=== PATIENT | female | born 1950 | race Caucasian/White ===

== ENCOUNTER 2016-08-01 15:42 | Observation (INO) | payer MEDICARE ==
[2016-08-01 17:28] LABS: Hematocrit 30 % (35-47); Hemoglobin 9.9 g/dl (12.0-16.0); Mean Corpuscular HGB Conc 33 g/dl (31-36); Mean Corpuscular Hemoglobin 35 pg (27-31); Mean Platelet Volume 8 um3 (7.4-10.4); Red Cell Distribution Width 15 % (10.5-15); White Blood Count 6.8 10^3/ul (3.5-10.8)
[2016-08-01 17:29] LABS: Comments Flag Yes; Mean Corpuscular Volume 106 fL (80-97)
--- NOTE | 2016-08-01 17:33 | RAD ---
Indication: Syncope. Single frontal view of the chest performed at 1717 hours was reviewed. Comparison is made with previous exam dated June 29, 2015. No mediastinal shift is noted. Heart is of normal size and configuration. Lung gomez appear clear. IMPRESSION: NO ACTIVE CARDIOPULMONARY DISEASE IS NOTED.
[2016-08-01 17:39] LABS: ALT 17 U/L (7-52); AST 22 U/L (13-39); Alkaline Phosphatase 73 U/L (34-104); Anion Gap 11 mmol/L (2-11); BUN/Creatinine Ratio 16.3 (8-20); Blood Urea Nitrogen 22 mg/dL (6-24); CO2 Carbon Dioxide 24 mmol/L (22-32); Calcium 8.8 mg/dL (8.6-10.3); Chloride 103 mmol/L (101-111); Creatine Kinase 45 U/L (10-223); EGFR African American 50.5 (>60); EGFR Non-African American 39.2 (>60); Glucose 129 mg/dL (70-100); Magnesium 1.1 mg/dL (1.9-2.7); Potassium 4.3 mmol/L (3.5-5.0); Sodium 138 mmol/L (133-145)
[2016-08-01 17:52] LABS: TSH (Thyroid Stimulating Horm) 2.22 mcIU/mL (0.34-5.60)
--- NOTE | 2016-08-01 20:12 | RAD ---
Indication: Seizures. CT of the brain was performed without IV contrast. Comparison is made with previous exam dated September 06, 2011. Ventricular structures are midline. No midline shift is noted. There is encephalomalacia in the right frontal lobe. This is unchanged from previous exam. No midline shift is noted. No intracranial hemorrhage is noted. Mastoid air cells and paranasal sinuses are otherwise unremarkable. IMPRESSION: Postoperative changes with encephalomalacia in the right frontal lobe unchanged from previous exam. No intracranial hemorrhage is noted.
[2016-08-01] MEDS ORDERED: Divalproex DR TAB(*) 500 MG PO ONE (20:21)
--- NOTE | 2016-08-01 22:47 | ED ---
Tom Garsia Anna, scribed for Rosanne Kaufman MD on 08/01/16 at 1742 . Syncope/Near Syncope - HPI Summary HPI Summary: Patient is a 65 y/o female coming to [facility] presenting after the sudden onset of a seizure that began at 1500 today. The patient does not remember what happened. According to her , the patient was at the computer. She stood up and began convulsing. Her went over to hold her and eased her to the floor. The convulsing lasted two minutes. She was "out of it" for ten minutes. She bit her tongue in two places. Denies ALBRIGHT, CP, SOB, palpitations, nausea, emesis. Her history is significant for meningioma (removed 6 years ago, returned and removed again two other times), HTN, stents, CAD, a fib. She denies a history of seizures or seizure medications. Patient medications were reviewed this visit. 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 - accompanied by Onset/Duration: Sudden Onset, Lasting Minutes, Resolved Timing: Minutes Context: Witnessed, Loss Of Consciousness Activity At Onset: Other - stood up Associated Head Trauma: No - Allergies/Home Medications Allergies/Adverse Reactions: Allergies Allergy/AdvReac Type Severity Reaction Status Date / Time Azithromycin [From Zithromax] Allergy Itching Verified 10/08/15 19:28 Oxycodone Allergy See Comment Verified 10/08/15 19:28 Home Medications: Home Medications Acetaminophen TAB* [Tylenol TAB*] 650 mg PO Q4H PRN 08/01/16 [History Confirmed 08/01/16] BuPROPion XL* [Bupropion XL*] 300 mg PO DAILY 08/01/16 [History Confirmed ] Cholecalciferol CAP/TAB(NF) [Vitamin D3 CAP/TAB (NF)] 1 cap PO QAM 08/01/16 [ History Confirmed 08/01/16] Cyanocobalamin TAB* [Vitamin B12 TAB*] 1,000 mcg PO QAM 08/01/16 [History Confirmed 08/01/16] Ezetimibe TAB* [Zetia TAB*] 10 mg PO DAILY 08/01/16 [History Confirmed 08/01/16] Lansoprazole CAP (NF) [Prevacid CAP (NF)] 30 mg PO DAILY 08/01/16 [History Confirmed 08/01/16] Loratadine [Claritin 10 MG CAP] 10 mg PO QAM 08/01/16 [History Confirmed ] Magnesium Chloride EC TAB* [Slow Mag EC TAB*] 71.5 mg PO QAM 08/01/16 [History Confirmed 08/01/16] Misc Natural Products [Sleep Tonite] 1 tab PO QPM 08/01/16 [History Confirmed ] Multivitamins/Minerals TAB* [Theragran/minerals TAB*] 1 tab PO QAM 08/01/16 [ History Confirmed 08/01/16] Probiotic Product [Probiotic Daily] 1 cap PO QAM 08/01/16 [History Confirmed ] Rosuvastatin (NF) [Crestor (NF)] 5 mg PO DAILY 08/01/16 [History Confirmed 08/01] PMH/Surg Hx/FS Hx/Imm Hx Endocrine/Hematology History: Reports: Hx Anemia Denies: Hx Diabetes Cardiovascular History: Reports: Hx Atrial Fibrillation - no symptoms since ablation in 2008, Hx Coronary Artery Disease - stent 2003, Hx Hypertension, Other Cardiovascular Problems/Disorders - Stent, Atrial fibrilation Denies: Hx Congestive Heart Failure, Hx Pacemaker/ICD Respiratory History: Reports: Hx Pneumonia, Hx Sleep Apnea Denies: Hx Asthma GI History: Reports: Hx Gastroesophageal Reflux Disease, Other GI Disorders - ibs History: Denies: Hx Acute Renal Failure, Hx Benign Prostatic Hyperplasia, Hx Dialysis , Hx Renal Disease Musculoskeletal History: Reports: Hx Arthritis, Hx Back Problems, Other Musculoskeletal History - 2 hip replacements Sensory History: Reports: Hx Contacts or Glasses - reading Denies: Hx Hearing Aid Opthamlomology History: Reports: Hx Contacts or Glasses - reading Neurological History: Reports: Hx Headaches, Other Neuro Impairments/Disorders - Hx of brain tumor Denies: Hx Dementia, Hx Developmental Delay, Hx Migraine, Hx Nerve Disease, Hx Seizures, Hx Spinal Cord Injury, Hx Transient Ischemic Attacks (TIA) Psychiatric History: Reports: Hx Anxiety, Hx Panic Disorder - Cancer History Cancer Type, Location and Year: CRANIOTOMY Hx Chemotherapy: No Hx Radiation Therapy: No - Surgical History Surgery Procedure, Year, and Place: 06/28 TOTAL RIGHT HIP REPLACEMENT; 06/27 TOTAL LEFT HIP REPLACEMENT; 08/28 GAMMA KNIFE PROCEDURE; 12/28 RT KNEE ARTHROSCOPIC; 09[place]23 [place] [facility] [place] ANKLE HARDWARE REMOVED; 04[place]26 [place] [facility] [place] [place] CARDIAC ST[place]; 1981; W.TOOTH EXTRACTION; 2009 CARDIAC ABLATION WITH STENT [place] Hx Anesthesia Reactions: No Infectious Disease History: Yes Infectious Disease History: Denies: Hx Hepatitis, Traveled Outside the [place] in Last 30 Days - Family History Known Family History: Positive: Cardiac Disease - Social History Lives: With Family Alcohol Use: Daily Alcohol Amount: 1/2 BOTTLE WINE/DAY Substance Use Type: Reports: None Hx Tobacco Use: Yes Smoking Status (MU): Current Every Day Smoker Type: Cigarettes Amount Used/How Often: 2 CIG/DAY Review of Systems Negative: Palpitations, Chest Pain Negative: Shortness Of Breath Negative: Vomiting, Nausea Negative: Edema Neurological: Other - dizziness Positive: Syncope. Negative: Headache All Other Systems Reviewed And Are Negative: Yes Physical Exam Triage Information Reviewed: Yes Vital Signs On Initial Exam: Initial Vitals Temp Pulse Resp BP Pulse Ox 97.8 F 78 17 150/78 100 08/01/16 16:12 08/01/16 16:12 08/01/16 16:12 08/01/16 16:12 08/01/16 16:12 Vital Signs Reviewed: Yes Appearance: Positive: Well-Appearing, No Pain Distress, Well-Nourished Skin: Positive: Warm, Skin Color Reflects Adequate Perfusion, Dry Head/Face: Positive: Normal Head/Face Inspection Eyes: Positive: EOMI, LAURA, Conjunctiva Clear ENT: Positive: Pharynx normal, TMs normal Neck: Positive: Supple, Nontender Respiratory/Lung Sounds: Positive: Clear to Auscultation, Breath Sounds Present. Negative: Rales, Rhonchi, Wheezes Cardiovascular: Positive: RRR, S1, S2. Negative: Murmur, Rub, Other - no gallops Abdomen Description: Positive: Nontender, Soft. Negative: Distended, Guarding, Other: - no rebound Bowel Sounds: Positive: Present Musculoskeletal: Positive: Other - Painful ROM of right hip due to chronic flexor tendonitis Neurological: Positive: Normal, Sensory/Motor Intact, Alert, Oriented to Person Place, Time. Negative: Cerebellar Dysfunction Psychiatric: Positive: Affect/Mood Appropriate Diagnostics - Vital Signs Vital Signs Temp Pulse Resp BP Pulse Ox 08/01/16 16:18 76 21 150/76 97 08/01/16 16:12 97.8 F 74 14 150/78 97 - Laboratory Lab Results: Lab Results 08/01/16 08/01/16 Range/Units 16:04 16:04 WBC 6.8 (3.5-10.8) 10^3/ul RBC 2.80 L (4.0-5.4) 10^6/ul Hgb 9.9 L (12.0-16.0) g/dl Hct 30 L (35-47) % MCV 106 H (80-97) fL MCH 35 H (27-31) pg MCHC 33 (31-36) g/dl RDW 15 (10.5-15) % Plt Count 267 (150-450) 10^3/ul MPV 8 (7.4-10.4) um3 Neut % (Auto) 70.1 (38-83) % Lymph % (Auto) 19.8 L (25-47) % [place] % (Auto) 8.3 (1-9) % Eos % (Auto) 1.2 (0-6) % Baso % (Auto) 0.6 (0-2) % Absolute Neuts (auto) 4.8 (1.5-7.7) 10^3/ul Absolute Lymphs (auto) 1.3 (1.0-4.8) 10^3/ul Absolute Monos (auto) 0.6 (0-0.8) 10^3/ul Absolute Eos (auto) 0.1 (0-0.6) 10^3/ul Absolute Basos (auto) 0 (0-0.2) 10^3/ul Absolute Nucleated RBC 0 10^3/ul Nucleated RBC % 0 INR (Anticoag Therapy) 0.90 (0.89-1.11) Result Diagrams: 08/01/16 16:04 08/01/16 16:04 Lab Statement: Any lab studies that have been ordered have been reviewed, and results considered in the medical decision making process. - Radiology CXR Xray Interpretation: No Acute Changes Radiology Interpretation Completed By: Radiologist - CT Brain CT CT Interpretation: No Acute Changes CT Interpretation Completed By: Radiologist - IMPRESSION: Postoperative changes with encephalomalacia in the right frontal lobe unchanged from previous exam. No intracranial hemorrhage is noted. - EKG 1629 Cardiac Rate: NL - 77 bpm EKG Rhythm: Sinus Rhythm EKG Interpretation: Biphasic P-wave in V3, noncontiguous. No acute ischemic changes. Re-Evaluation - Re-Evaluation First Eval Re-Evaluation Time: 21:01 Comment: Discussed results and plan of care with patient and family. Patient and family are agreeable with plan. Course/Dx Assessment/Plan: Patient is a 65 y/o female coming to [facility] presenting after the sudden onset of a seizure that began at 1500 today. Labs reveal RBC of 2.80 , Hgb of 9.9, Hct of 30, magnesium of 1.1, glucose of 129, BNP of 123. EKG reveals NSR at 77 bpm with biphasic P-wave in V3, noncontiguous. No acute ischemic changes. CXR reveals no evidence for acute disease. Brain CT reveals an unchanged brain from previous exam with no intracranial hemorrhage noted. Discussed case with Dr. Saldana (neurologist) at 2020, who will evaluate the patient tomorrow. Dr. Saldana recommends 500 mg Depakote BID. Discussed case with Dr. Borjas, hospitalist, who accepts patient for admission. - Diagnoses Provider Diagnoses: Seizure - Physician Notifications Discussed Care Of Patient With: Dr. Borjas (hospitalist) at 2008. Agrees to accept patient for admission. Dr. Saldana (neurologist) at 2020. He recommends Depakote 500 mg BID. He will evaluate the patient tomorrow. Discharge - Discharge Plan Condition: Stable Disposition: ADMITTED TO [facility] documentation as recorded by the Tom lieberman Anna accurately reflects the service I personally performed and the decisions made by , Rosanne Kaufman MD.
--- NOTE | 2016-08-02 01:16 | HP ---
H&P (Free Text) History and Physical: PCP: Tripp Burnham MD Date/Time of Evaluation: 08/02/2016 0055 CC: syncope HPI: Mrs Farr is a 65YO female HX meningioma s/p excision x2 after recurrence who does not recall the exact events leading to her ED visit, but was told by her that she was on the computer when she started laughing and stood up. She then began to 'flail' her arms to which her approached her in time to catch her when she collapsed and guide her to the ground after which he called EMS. She bit the L side of her tongue causing bleeding, but did not lose control of bowel or bladder. She does recall awakening on the floor and getting up despite her 's protests. She denies prodromal symptoms. Her informed her he wasn't sure of the duration, but that it was "a few minutes". At this time, she denies complaints or history of similar. She did have an episode of thunderclap vertigo within the last few days which only lasted a few seconds. Work up is notable for stable vitals, chronic stable macrocytic anemia, a normal d-dimer, & worsening CKD currently stg 3b. ECG, CXR, & CT brain WO are benign. PMedHx meningioma s/p excision followed by gamma knife for recurrence AFIB CAD/stent HTN chronic macrocytic anemia depression tobacco use disorder alcohol abuse hemorrhoids w/ frequent BRBPR, C-scope reportly up to date IBS OA Ambulatory Orders Aspirin Low Dose CHEW TAB* [Aspirin Low Dose TAB*] 81 mg PO DAILY 10/08/15 Calcium 1,200 mg PO DAILY 10/08/15 Calcium Carbonate-Vitamin D [Calcium 600/Vitamin D 600-200 mg-Unit] 2 tab PO DAILY 10/08/15 Candesartan Cilexetil [Atacand] 4 mg PO DAILY 10/08/15 Docusate Sodium [Stool Softener] 250 mg PO BID 10/08/15 Metoprolol Tartrate TAB* [Lopressor TAB*] 100 mg PO BID 10/08/15 Potassium 99 mg PO DAILY 10/08/15 Vitamin B Complex TAB* [Complex B-100*] 1 tab PO QAM 10/08/15 Acetaminophen TAB* [Tylenol TAB*] 650 mg PO Q4H PRN 08/01/16 BuPROPion XL* [Bupropion XL*] 300 mg PO DAILY 08/01/16 Cholecalciferol CAP/TAB(NF) [Vitamin D3 CAP/TAB (NF)] 1 cap PO QAM 08/01/16 Cyanocobalamin TAB* [Vitamin B12 TAB*] 1,000 mcg PO QAM 08/01/16 Ezetimibe TAB* [Zetia TAB*] 10 mg PO DAILY 08/01/16 Lansoprazole CAP (NF) [Prevacid CAP (NF)] 30 mg PO DAILY 08/01/16 Loratadine [Claritin 10 MG CAP] 10 mg PO QAM 08/01/16 Magnesium Chloride EC TAB* [Slow Mag EC TAB*] 71.5 mg PO QAM 08/01/16 Misc Natural Products [Sleep Tonite] 1 tab PO QPM 08/01/16 Multivitamins/Minerals TAB* [Theragran/minerals TAB*] 1 tab PO QAM 08/01/16 Probiotic Product [Probiotic Daily] 1 cap PO QAM 08/01/16 Rosuvastatin (NF) [Crestor (NF)] 5 mg PO DAILY 08/01/16 Allergies Azithromycin [From Zithromax] Allergy (Verified 10/08/15 19:28) Itching Oxycodone Allergy (Verified 10/08/15 19:28) See Comment PSurgHx craniotomy for meningioma cerebral gamma knife for meningioma recurrence B TKA ORIF L ankle s/p hardware removal hemorrhoidectomy SocHx: current smoker w/ ~50PYHX, 2-3 glasses wine daily, denies recreational drugs; lives with her ; DNR code status FamHx: Mother: passed in her 80s, HX "blood clot" & TIAs; Father: passed in his 90s 2nd leukemia w/ metastatic colon CA ROS: as above, otherwise reviewed and all were negative Constitutional: NAD, normally developed, overweight white female vitals: Vital Signs Temp 36.6 C 08/01/16 16:12 Pulse 94 08/02/16 00:01 Resp 15 08/02/16 00:01 BP 118/61 08/02/16 00:01 Pulse Ox 97 08/02/16 00:01 Intake & Output 08/01/16 08/01/16 08/02/16 11:59 23:59 11:59 Weight 63.503 kg HEENM: atraumatic; sclera/conjunctiva: non-icteric/clear; hearing: clinically intact; oropharynx: L lateral tongue small crush/laceration w/o active bleeding , mucosa moist Neck: soft tissue: non-tender; thyroid: normal Pulmonary: clear to auscultation bilaterally, good aeration, no accessory muscle use CV: RR/RR, normal S1S2, no carotid bruit, no jugular venous distention, 2+ B DP/ PT, no edema Abdominal: soft, non-distended, non-tender, no rebound/guarding/rigidity, normoactive bowel sounds, no hepatosplenomegaly or masses, no costovertebral angle tenderness Musculoskeletal: general: grossly intact; gait: stable Integumental: normal appearance and texture Psychiatric orientation: AA&O to PPS affect: calm mood: cooperative eye contact: good content: reliable memory: absent regarding event responses: timely insight: fair Testing: Lab Results 08/01/16 08/01/16 08/01/16 Range/Units 16:04 16:04 16:04 WBC 6.8 (3.5-10.8) 10^3/ul RBC 2.80 L (4.0-5.4) 10^6/ul Hgb 9.9 L (12.0-16.0) g/dl Hct 30 L (35-47) % MCV 106 H (80-97) fL MCH 35 H (27-31) pg MCHC 33 (31-36) g/dl RDW 15 (10.5-15) % Plt Count 267 (150-450) 10^3/ul MPV 8 (7.4-10.4) um3 Neut % (Auto) 70.1 (38-83) % Lymph % (Auto) 19.8 L (25-47) % Major % (Auto) 8.3 (1-9) % Eos % (Auto) 1.2 (0-6) % Baso % (Auto) 0.6 (0-2) % Absolute Neuts (auto) 4.8 (1.5-7.7) 10^3/ul Absolute Lymphs (auto) 1.3 (1.0-4.8) 10^3/ul Absolute Monos (auto) 0.6 (0-0.8) 10^3/ul Absolute Eos (auto) 0.1 (0-0.6) 10^3/ul Absolute Basos (auto) 0 (0-0.2) 10^3/ul Absolute Nucleated RBC 0 10^3/ul Nucleated RBC % 0 INR (Anticoag Therapy) 0.90 (0.89-1.11) D-Dimer, Quantitative < 200 (Less Than 230) ng/mL Sodium 138 (133-145) mmol/L Potassium 4.3 (3.5-5.0) mmol/L Chloride 103 (101-111) mmol/L Carbon Dioxide 24 (22-32) mmol/L Anion Gap 11 (2-11) mmol/L BUN 22 (6-24) mg/dL Creatinine 1.35 H (0.51-0.95) mg/dL Est GFR ( Amer) 50.5 (>60) Est GFR (Non-Af Amer) 39.2 (>60) BUN/Creatinine Ratio 16.3 (8-20) Glucose 129 H (70-100) mg/dL Calcium 8.8 (8.6-10.3) mg/dL Magnesium 1.1 L (1.9-2.7) mg/dL Total Bilirubin 0.30 (0.2-1.0) mg/dL AST 22 (13-39) U/L ALT 17 (7-52) U/L Alkaline Phosphatase 73 (34-104) U/L Total Creatine Kinase 45 (10-223) U/L Troponin I 0.00 (<0.04) ng/mL B-Natriuretic Peptide ( - 100) pg/mL Total Protein 7.0 (6.4-8.9) g/dL Albumin 4.0 (3.2-5.2) g/dL Globulin 3.0 (2-4) g/dL Albumin/Globulin Ratio 1.3 (1-3) TSH 2.22 (0.34-5.60) mcIU/mL 08/01/16 Range/Units 17:53 WBC (3.5-10.8) 10^3/ul RBC (4.0-5.4) 10^6/ul Hgb (12.0-16.0) g/dl Hct (35-47) % MCV (80-97) fL MCH (27-31) pg MCHC (31-36) g/dl RDW (10.5-15) % Plt Count (150-450) 10^3/ul MPV (7.4-10.4) um3 Neut % (Auto) (38-83) % Lymph % (Auto) (25-47) % Major % (Auto) (1-9) % Eos % (Auto) (0-6) % Baso % (Auto) (0-2) % Absolute Neuts (auto) (1.5-7.7) 10^3/ul Absolute Lymphs (auto) (1.0-4.8) 10^3/ul Absolute Monos (auto) (0-0.8) 10^3/ul Absolute Eos (auto) (0-0.6) 10^3/ul Absolute Basos (auto) (0-0.2) 10^3/ul Absolute Nucleated RBC 10^3/ul Nucleated RBC % INR (Anticoag Therapy) (0.89-1.11) D-Dimer, Quantitative (Less Than 230) ng/mL Sodium (133-145) mmol/L Potassium (3.5-5.0) mmol/L Chloride (101-111) mmol/L Carbon Dioxide (22-32) mmol/L Anion Gap (2-11) mmol/L BUN (6-24) mg/dL Creatinine (0.51-0.95) mg/dL Est GFR ( Amer) (>60) Est GFR (Non-Af Amer) (>60) BUN/Creatinine Ratio (8-20) Glucose (70-100) mg/dL Calcium (8.6-10.3) mg/dL Magnesium (1.9-2.7) mg/dL Total Bilirubin (0.2-1.0) mg/dL AST (13-39) U/L ALT (7-52) U/L Alkaline Phosphatase (34-104) U/L Total Creatine Kinase (10-223) U/L Troponin I (<0.04) ng/mL B-Natriuretic Peptide 123 H ( - 100) pg/mL Total Protein (6.4-8.9) g/dL Albumin (3.2-5.2) g/dL Globulin (2-4) g/dL Albumin/Globulin Ratio (1-3) TSH (0.34-5.60) mcIU/mL ECG, personally reviewed: NSR rate 73, non-specific ST-T change in V3/4 CXR, personally reviewed: IMPRESSION: NO ACTIVE CARDIOPULMONARY DISEASE IS NOTED. CT brain WO, personally reviewed: IMPRESSION: Postoperative changes with encephalomalacia in the right frontal lobe unchanged from previous exam. No intracranial hemorrhage is noted. Impression: 65F HX meningioma s/p craniotomy & then gamma knife surgery for recurrence presenting with new onset seizures DIAGNOSIS & PLAN Primary new onset seizures : Betty Saldana MD neurology consulted by ED, will evaluate in AM : divalproex 500mg PO BID : seizure precautions : EEG in AM : supplemental oxygen : supportive care Secondary meningioma : s/p excision followed by gamma knife for recurrence AFIB : continue metoprolol CAD/stent : continue aspirin HTN : continue candesartan, metoprolol HLD : continue rosuvastatin & ezetimibe depression : continue bupropion XL GERD : omeprazole Admission Rational: observation for new onset seizure work up DVTp: SCDs Code Status: DNR HCP:
[2016-08-02] MEDS ORDERED: Melatonin (NF) 3 MG TAB PO PRN (01:54)
[2016-08-02] MEDS ORDERED: Acetaminophen TAB* 325 MG PO PRN (01:54)
[2016-08-02] MEDS ORDERED: Ondansetron INJ* 2 MG/ML VIAL IV PRN (01:54)
[2016-08-02] MEDS ORDERED: Albuterol 2.5 MG/3 ML NEB.SOL* (0.083%) INH PRN (01:54)
[2016-08-02 02:05] LABS: Immature Retic Fraction 0.48
[2016-08-02 02:07] LABS: Corrected Retic Count 0.9 % (0.5-1.5); Maturation Factor Retic 1.5
[2016-08-02 02:19] LABS: Iron 94 ug/dL (50-212); Total Iron Binding Capacity 323 mcg/dL (250-450); Transferrin 231 mg/dL (203-362)
[2016-08-02 02:39] LABS: Prolactin 26.2 ng/mL (1.0-25.0)
[2016-08-02 02:41] LABS: Ferritin 76.9 ng/mL (11-307)
[2016-08-02 02:44] LABS: Folate > 20.00 ng/mL (>3.99)
[2016-08-02 02:45] LABS: Vitamin B12 > 1450 pg/mL (180-914)
[2016-08-02] MEDS ORDERED: Omeprazole CAP* 20 MG PO SCH (06:00)
[2016-08-02 06:07] LABS: Hematocrit 26 % (35-47); Hemoglobin 8.7 g/dl (12.0-16.0); Mean Corpuscular HGB Conc 34 g/dl (31-36); Mean Corpuscular Hemoglobin 35 pg (27-31); Mean Platelet Volume 7 um3 (7.4-10.4); Red Blood Count 2.45 10^6/ul (4.0-5.4); Red Cell Distribution Width 14 % (10.5-15); White Blood Count 6.1 10^3/ul (3.5-10.8)
[2016-08-02 06:08] LABS: Comments Flag Yes; Mean Corpuscular Volume 105 fL (80-97)
[2016-08-02 06:20] LABS: BUN/Creatinine Ratio 14.8 (8-20); Calcium 8.3 mg/dL (8.6-10.3); EGFR African American 53.7 (>60); EGFR Non-African American 41.7 (>60); Potassium 3.6 mmol/L (3.5-5.0)
[2016-08-02 08:36] VITALS: BP 117/57
[2016-08-02] MEDS ORDERED: Tiotropium CAP.INH* CAP.INH/18 MCG INH SCH (09:00)
[2016-08-02] MEDS ORDERED: Divalproex DR TAB(*) 500 MG PO SCH (09:00)
[2016-08-02] MEDS ORDERED: Spiriva Inhaler DEVICE* 1 EACH DEVICE INH ONE (09:00)
[2016-08-02] MEDS ORDERED: Mometasone/Formoter 200/5 MDI INH SCH (09:00)
[2016-08-02] MEDS ORDERED: ALPRAZolam TAB* 0.5 MG PO ONE (11:29)
[2016-08-02] MEDS ORDERED: ALPRAZolam TAB* 0.5 MG ONE (11:30)
--- NOTE | 2016-08-02 13:11 | RAD ---
Indication: Seizure yesterday afternoon. History of meningioma with resection in 2007 and gamma knife in August 2011. Comparison: August 01, 2016 CT and July 13, 2015 MRI. June 04, 2014 MRI. Technique: Neuro Heroa 1.5 Nichol [id number] with GEM suite. MRI brain without contrast. Report: Diffusion series is negative for acute or subacute ischemia. Susceptibility series is negative for stigmata of hemosiderin deposition to indicate previous hemorrhage. There is volume loss and white matter T2 hyperintensity at the RIGHT frontal lobe without change consistent with encephalomalacia related to previous surgery with overlying craniotomy site. 0.9 x 1.5 x 1.0 cm sharply demarcated T2 hyperintense cavity within the overlying RIGHT frontal bone is unchanged and likely represents sequela of a previous bassam hole. Minimal increased signal is noted in the periventricular white matter of the cerebral hemispheres without change. Negative for sulcal effacement. Unremarkable ventricles and basal cisterns. No new extra or intra-axial lesions evident. Unchanged mild increased T2 signal within the superior lateral aspect of the RIGHT orbit without associated mass effect is low suspicion possibly representing sequela of previous surgery or radiation. Preserved major intracranial flow-voids. No suspicious calvarial or skull base lesion evident. Grossly clear paranasal sinuses and mastoid air spaces. Negative for suspicious scalp lesions. IMPRESSION: 1. Stable finding of RIGHT anterior lobe encephalomalacia related to previous surgery at the RIGHT anterior cranial fossa compared with the July 13, 2015 and June 04, 2014 MRI exams.. No finding suspicious for local recurrence or new extra or intra-axial tumor within limits of noncontrast MRI. 2. No evidence for acute or subacute ischemia.
--- NOTE | 2016-08-02 14:45 | DCNOTE ---
Subjective Date of Service: 08/02/16 Interval History: She feels completely well now. She recalls feeling funny for a few seconds before her fall. She does not recall falling to the floor;. She recalls waking up on the floor and feeling a little off for a short period. SHe has never had a seizure before. Objective Active Medications: Acetaminophen (Tylenol Tab*) 650 mg PO Q6H PRN PRN Reason: FEVER/PAIN Last Admin: 08/02/16 04:05 Dose: 650 mg Albuterol (Ventolin 2.5 Mg/3 Ml Neb.Muna*) 2.5 mg INH Q2H PRN PRN Reason: SOB/WHEEZING Divalproex Sodium (Depakote Dr Tab(*)) 500 mg PO BID [facility] Last Admin: 08/02/16 08:43 Dose: 500 mg Mometasone Furoate/Formoterol Fumar (Dulera 200/5 Mdi*) 2 puff INH BID [facility] Last Admin: 08/02/16 08:17 Dose: Not Given Omeprazole (Prilosec Cap*) 20 mg PO DAILY@0600 [facility] Last Admin: 08/02/16 07:14 Dose: 20 mg Ondansetron HCl (Zofran Inj*) 4 mg IV Q6H PRN PRN Reason: NAUSEA Tiotropium [place] (Spiriva Cap.Inh*) 1 cap INH DAILY [facility] Last Admin: 08/02/16 08:18 Dose: Not Given Vital Signs 08/02/16 08/02/16 08/02/16 02:09 07:49 11:31 Temperature 98.1 F 97.9 F Pulse Rate 86 83 Respiratory 16 18 16 Rate Blood Pressure 145/69 117/57 (mmHg) O2 Sat by Pulse 100 99 Oximetry Oxygen Devices in Use Now: None Appearance: Alert, supine in bed. In good spirits. Looks comfortable. Eyes: No Scleral Icterus Ears/Nose/Mouth/Throat: Clear Oropharnyx, Mucous Membranes Moist Neck: NL Appearance and Movements; NL JVP, No Thyroid Enlargement, Masses Respiratory: Symmetrical Chest Expansion and Respiratory Effort, Clear to Auscultation, Clear to Percussion Cardiovascular: NL Sounds; No Murmurs; No JVD, RRR, No Edema, - Extremities: No Edema, No Clubbing, Cyanosis, - Skin: No Rash or Ulcers, No Nodules or Sclerosis, - Neurological: Alert and Oriented x 3, NL Sensation - Face symmetric. Speech clear, fluent, appropriate. Result Diagrams: 08/02/16 05:45 08/02/16 05:45 Additional Lab and Data: Lab Results 08/01/16 08/01/16 Range/Units 16:04 16:04 WBC 6.8 (3.5-10.8) 10^3/ul RBC 2.80 L (4.0-5.4) 10^6/ul Hgb 9.9 L (12.0-16.0) g/dl Hct 30 L (35-47) % MCV 106 H (80-97) fL MCH 35 H (27-31) pg MCHC 33 (31-36) g/dl RDW 15 (10.5-15) % Plt Count 267 (150-450) 10^3/ul MPV 8 (7.4-10.4) um3 Neut % (Auto) 70.1 (38-83) % Lymph % (Auto) 19.8 L (25-47) % Mcclain % (Auto) 8.3 (1-9) % Eos % (Auto) 1.2 (0-6) % Baso % (Auto) 0.6 (0-2) % Absolute Neuts (auto) 4.8 (1.5-7.7) 10^3/ul Absolute Lymphs (auto) 1.3 (1.0-4.8) 10^3/ul Absolute Monos (auto) 0.6 (0-0.8) 10^3/ul Absolute Eos (auto) 0.1 (0-0.6) 10^3/ul Absolute Basos (auto) 0 (0-0.2) 10^3/ul Absolute Nucleated RBC 0 10^3/ul Nucleated RBC % 0 INR (Anticoag Therapy) 0.90 (0.89-1.11) Assess/Plan/Problems-Billing Assessment: - Patient Problems (1) Seizure Current Visit: Yes Status: Acute Code(s): R56.9 - UNSPECIFIED CONVULSIONS SNOMED Code(s): 41022403 Comment: Related to prior menigiom. EEG report pending. Dr. Saldana to see pt before discharge. Rx for divalproex transmitted. Pt understands she can't drive for a period of time to be determined by her neurologist. (2) PAF (paroxysmal atrial fibrillation) Current Visit: Yes Status: Acute Code(s): I48.0 - PAROXYSMAL ATRIAL FIBRILLATION SNOMED Code(s): 466332102 Comment: In NSR on admission. (3) HTN (hypertension) Current Visit: Yes Status: Acute Code(s): I10 - ESSENTIAL (PRIMARY) HYPERTENSION SNOMED Code(s): 98938612 Comment: Hold candesartan until she sees her PCP. (4) Hypomagnesemia Current Visit: Yes Status: Acute Code(s): E83.42 - HYPOMAGNESEMIA SNOMED Code(s): 283549339 Comment: The patient was prescribed a magnesium supplement by Dr. Burnham but she decided not to take it due to her IBS. Mag 2 gm IV ordered, then 800 mg daily mag oxide at home. Status and Disposition: Discharge now. Fup Dr. Burnham.
[2016-08-02] MEDS ORDERED: Magnesium Sulfate 2 GM IV* 2 GM/50 ML BAG IVPB ONE (15:27)
--- NOTE | 2016-08-02 15:53 | PN ---
Progress Note - Progress Note Note: I discussed the effect of low magnesium levels on the chance of future seizures , also the same for buproprion. She is concerned about the effects of magnesium on her IBS, and also feels she needs medication to continue to not smoke. She will discuss these issues with Dr. Burnham.
--- NOTE | 2016-08-02 20:14 | CONS ---
NEUROLOGY CONSULTATION: DATE OF CONSULT: 08/02/16 LOCATION: She is an inpatient in room 405. REFERRING PHYSICIAN: Dr. Borjas. PRIMARY CARE PHYSICIAN: Dr. Burnham. CHIEF COMPLAINT: Seizure. HISTORY OF PRESENT ILLNESS: Janell Farr is a 65-year-old right-handed woman, who was at her computer yesterday, she believed, when she suddenly felt a strange sensation in her head like a balloon was filling up. She bent over and held her head and passed perhaps 5 or 10 seconds. She continued working at the computer. Sometime later that day, her observed her as start laughing, stand up, and had some type of flailing movements of her arms. She collapsed to the ground and apparently there was some stiffening. She was brought into the emergency room. She was amnestic for the event and did not respond initially to her and did not really respond much until she was in the emergency room. Her estimated the whole episode lasted a few minutes. The patient does not remember any other premonitory symptoms, does not remember coming into the emergency room. She does remember of being in the hospital room last night. There is no prior history of seizures. She was diagnosed with having a meningioma in the right frontal region [place] [address] Bridger Paulino. She had a surgical resection. She was followed with serial imaging for years and had evidence of recurrence and underwent Gamma Knife therapy in [place], I believe somewhere around 2012 or so. She has been followed there with serial scans since and to the best of my knowledge, there has been no evidence of recurrent disease. She had an MRI of her brain today, which revealed postsurgical changes but no changes since the prior MRI scan done here on 07/13/15. There is no evidence of infarction or hemorrhage. PAST MEDICAL HISTORY: Notable for the meningioma and subsequent treatment; ongoing tobacco dependance, with the smoking cessation with Wellbutrin for at least many months. Coronary artery disease with stenting, history of chronic macrocytic anemia, history of irritable bowel syndrome, possible history of alcohol abuse, history of intermittent atrial fibrillation, history of chronic kidney disease. FAMILY HISTORY: Negative for seizures. SOCIAL HISTORY: She lives with her . She has cut her smoking down from a pack per day to a pack per week. She has 2 to 3 glasses of wine per day according to the computer records. REVIEW OF SYSTEMS: Notable for biting inside of her tongue. She has a low- grade headache today. She had been eating fine lately. She has been having some right hip pain, recently diagnosed with flexor problem by her daughter who is, I believe, a material handling technician. She is otherwise generally study on her feet. No falls. She does not recollect any weakness of one side or another after a surgery or subsequently. She has had a prior ankle fracture. PHYSICAL EXAM: She is well-nourished and well-hydrated. Head is atraumatic. Temperature 97.9 orally, blood pressure 117/57, heart rate in the 80s and regular, respirations about 16. Heart is in a regular rate and rhythm without murmurs. Lungs are clear bilaterally. Carotid pulses are present and I do not hear any bruits. She has a small bite on the tip of her tongue in the left lateral aspect of it. No other oral trauma. Neck is supple. Neurologically, pupils react equally from 3.5 down to 2 mm. Funduscopic exam is normal. Eye movements are normal. Visual gomez are full to confrontation. Facial musculature is symmetric. Facial sensation to light touch is symmetric. Palate and tongue otherwise appear normal and speech is clear without dysarthria. Hearing is intact bilaterally and neck strength is intact. Motor exam reveals normal muscle tone and strength in the limbs, proximally and distally, although I did not test the right proximal one because of pain. There is no rest or action tremor. Finger taps are normal in the hands. Sensory exam to touch and pin is normal in the limbs. Reflexes are hypoactive, absent at the ankles. Plantar responses are flexor bilaterally. She is alert and oriented to person, place, and time. She does not recall about an hour or two or perhaps three around the episode yesterday. Memory otherwise is normal. Attention, concentration, and fund of knowledge are all adequate. Language is fluent. DIAGNOSTIC STUDIES/LAB DATA: I reviewed her images from today and agree with the report. She had an EEG, which I have reviewed and is essentially a normal EEG. Other laboratory studies include CBC with hemoglobin of 9.9 on admission with hematocrit of 30, MCV 106. Platelet count 267,000. Chemistry profile is normal other than the creatinine of 1.35 yesterday, down to 1.28 today. Magnesium is low at 1.1, glucose 129. IMPRESSION AND PLAN: Impression is that of a new-onset seizure probably from her old meningioma and subsequent therapy for it. She has been started on Depakote last night, which I agree with. Discussed potential side effects of that with her including sedation, weight gain, tremor. I told her will need to be monitored. I told her she cannot drive and needs to notify the DMV of the seizure disorder and typically would not be able to drive for 6 months from her last seizure. She will need to follow up in my office as well to monitor her blood levels and other parameters. She should take supplemental magnesium as well and I will discuss with Dr. Laws. [id number]/[facility] #: [id number] YULIYA
--- NOTE | 2016-08-03 00:33 | EEG ---
ELECTROENCEPHALOGRAM REPORT: DATE OF STUDY: 08/02/16 REFERRING PHYSICIAN: Dr. Borjas. LOCATION: She is an inpatient, room 405. CLINICAL HISTORY: New onset seizure the day before this recording. The patient has a history of meningioma with resection and recurrence treated with gamma knife therapy. MEDICATIONS: Consist of: 1. Depakote. 2. Prilosec. 3. Dulera. 4. Ventolin. 5. Zofran. EEG DESCRIPTION: This 16-channel EEG is remarkable for background activity consisting of a posterior rhythm of approximately 9 cycles per second which is symmetric. Lower voltage faster rhythms are seen bifrontally. There is a voltage asymmetry with higher rhythms noted from the left occipital and temporal parietal areas. Frequencies are symmetrical; however. The patient drowses and sleeps intermittently with higher voltage central delta activity and some bitemporal theta rhythms. Sleep spindles are seen periodically. The patient sleeps and wakes several times during the recording. Activation procedures are not attempted. There are no epileptiform discharges. INTERPRETATION: Abnormal EEG due to voltage asymmetries with higher voltages from the left hemisphere suggestive of the breach rhythm. There are no epileptiform discharges during the recording, however. [id number]/[facility] #: [id number] [facility]
--- NOTE | 2016-08-03 08:32 | DS ---
CC: Dr. Burnham. DISCHARGE SUMMARY: DATE OF ADMISSION: 08/02/16 DATE OF DISCHARGE: 08/02/16 HISTORY OF PRESENT ILLNESS: This 65-year-old woman was at her computer, her was there, she does not recall the events. He said she started laughing, stood up, flailed her arms, and he caught her in time to guide her to the ground and then called EMS. The patient does not recall falling. She said she recalls a few seconds of feeling funny and then passed out. She woke up on the floor. She was a little bit off for a short period of time. She had bit her tongue, but was not incontine nt. She has never had a seizure before. The rest of the history is detailed in the note. The patient was admitted to the medical floor. She had no further episodes. She was started on div alproex 500 mg b.i.d. She had no further episodes in the hospital. Her magnesium level was noted to be 1.1. This is the same value she had in May. Dr. Burnham had pr escribed magnesium, but the patient would not take it because she was afraid it would affect her ir ritable bowel syndrome. We also recommended that she stop her bupropion; however, she felt she need ed it, so she would not smoke; she said she would discuss this issue with Dr. Burnham. I recommended her that she not take it. She understands that it would not be safe for her to drive until she has been cleared by a neurologi st. FINAL DIAGNOSES: 1. Seizure. 2. Paroxysmal atrial fibrillation. 3. Hypertension. 4. Hypomagnesemia. DISCHARGE MEDICATIONS: 1. Divalproex 500 mg b.i.d. 2. Magnesium oxide 800 mg daily. 3. Docusate 250 mg b.i.d. 4. Vitamin D one tab daily. 5. Calcium carbonate and vitamin D two daily. 6. Calcium 1200 mg daily. 7. Aspirin 81 mg daily. 8. Candesartan 4 mg daily. 9. Metoprolol 100 mg b.i.d. 10. Potassium 99 mg daily. 11. B12 1000 mcg p.o. daily. 12. Sleep Tonight 1 tab at bedtime. 13. Multivitamin with minerals daily. 14. Rosuvastatin 5 mg daily. 15. Magnesium chloride 71.5 mg daily. 16. Lansoprazole 30 mg daily. 17. Ezetimibe 10 mg daily. 18. Bupropion XL 300 mg daily. This is listed as, in my opinion, the patient will take it regardle ss of my instructions. 19. Probiotic 1 capsule daily. 20. Loratadine 10 mg daily. 21. Acetaminophen 650 mg every 4 hours p.r.n. [id number]/[facility] #: [id number]
[2016-08-03] MEDS ORDERED: Magnesium Oxide TAB* 400 MG PO SCH (09:00)
== END 2016-08-02 17:40 | disposition home or self-care (01) ==
LOC: ED 15:42 → MED 08-02 02:07
PROVIDERS: ADMIT Hospitalist; ATTEND Internal Medicine
DX: R56.9 Unspecified convulsions (principal); R55 Syncope and collapse; I48.0 Paroxysmal atrial fibrillation; E83.42 Hypomagnesemia; I12.9 Hypertensive chronic kidney disease with stage 1 through stage 4 chronic kidney disease, or unspecified chronic kidney disease; N18.3 Chronic kidney disease, stage 3 (moderate); I25.10 Atherosclerotic heart disease of native coronary artery without angina pectoris; Z95.5 Presence of coronary angioplasty implant and graft; Z86.011 Personal history of benign neoplasm of the brain; D53.9 Nutritional anemia, unspecified; F32.9 Major depressive disorder, single episode, unspecified; K58.9 Irritable bowel syndrome, unspecified; G93.89 Other specified disorders of brain; E78.5 Hyperlipidemia, unspecified; F17.210 Nicotine dependence, cigarettes, uncomplicated; Z88.1 Allergy status to other antibiotic agents; Z88.5 Allergy status to narcotic agent; Z79.899 Other long term (current) drug therapy
CPT/HCPCS: 36415; 70450; 70551; 71010; 80048; 80053; 82550; 82607; 82728; 82746; 83540; 83550; 83615; 83735; 83880; 84146; 84443; 84484; 85025; 85027; 85045; 85379; 85610; 93005; 95819; 96374; 99284; 99406; A9270-GY; G0378

== ENCOUNTER 2016-12-20 15:33 | Emergency (ER) | payer MEDICARE ==
[2016-12-20 16:01] VITALS: BP 135/51
--- NOTE | 2016-12-20 16:07 | UC ---
Upper Extremity HPI - HPI Summary HPI Summary: 65 YEAR OLD FEMALE PRESENTS WITH RIGHT ELBOW PAIN AFTER A FALL. - History of Current Complaint Chief Complaint: UCUpperExtremity Stated Complaint: ARM INJURY Time Seen by Provider: 12/20/16 16:06 Hx Obtained From: Patient Onset/Duration: Sudden Onset Severity Initially: Moderate Severity Currently: Moderate Pain Scale Used: 0-10 Numeric - 7 - Allergies/Home Medications Allergies/Adverse Reactions: Allergies Allergy/AdvReac Type Severity Reaction Status Date / Time Azithromycin [From Zithromax] Allergy Itching Verified 12/20/16 16:01 Oxycodone Allergy See Comment Verified 12/20/16 16:01 PMH/Surg Hx/FS Hx/Imm Hx Previously Healthy: Yes - Surgical History Surgical History: Yes Surgery Procedure, Year, and Place: 06/28 TOTAL RIGHT HIP REPLACEMENT; 06/27 TOTAL LEFT HIP REPLACEMENT; 08/28 GAMMA KNIFE PROCEDURE; 12/28 RT KNEE ARTHROSCOPIC; 09/23 LT ANKLE SURGERY, [facility] [place] ; 2009 LT ANKLE HARDWARE REMOVED; 04/26 CRANIOTOMY [facility] [place]; 01/23 & HEMORRHOIDECTOMY,[facility] [place]; CARDIAC STENT; ; 1981 W.TOOTH EXTRACTION; 2009 CARDIAC ABLATION WITH STENT [place] - Family History Known Family History: Positive: Cardiac Disease - Social History Alcohol Use: Daily Alcohol Amount: 1/2 BOTTLE WINE/DAY Substance Use Type: None Smoking Status (MU): Current Every Day Smoker Type: Cigarettes Amount Used/How Often: 1 pk per day Household Exposure Type: Cigarettes - Immunization History Most Recent Influenza Vaccination: 2014 Most Recent Tetanus Shot: within past 5 years Most Recent Pneumonia Vaccination: 2014 Review of Systems Constitutional: Negative Skin: Negative Eyes: Negative ENT: Negative Respiratory: Negative Cardiovascular: Negative Gastrointestinal: Negative Genitourinary: Negative Motor: Negative Neurovascular: Negative Musculoskeletal: Other: - RIGHT ELBOW PAIN Neurological: Negative Psychological: Negative All Other Systems Reviewed And Are Negative: Yes Physical Exam Triage Information Reviewed: Yes Appearance: Pain Distress Vital Signs: Initial Vital Signs Temp 37.7 C 12/20/16 15:56 Pulse 66 12/20/16 15:56 Resp 20 12/20/16 15:56 BP 135/51 12/20/16 15:56 Pulse Ox 98 12/20/16 15:56 Eye Exam: Normal ENT Exam: Normal Dental Exam: Normal Neck exam: Normal Neck: Positive: 1 Respiratory Exam: Normal Cardiovascular Exam: Normal Abdominal Exam: Normal Musculoskeletal: Positive: Other: - RIGHT ELBOW PAIN Neurological Exam: Normal Psychological Exam: Normal Skin Exam: Normal Upper Extremity Course/Dx - Differential Dx/Diagnosis Provider Diagnoses: RIGHT RADIAL HEAD FX Discharge - Discharge Plan Condition: Stable Disposition: HOME Prescriptions: Ibuprofen TAB* [Motrin TAB* 800 MG] 800 mg PO Q6H #30 tab Patient Education Materials: Arm Fracture in Adults (ED), Elbow Fracture (ED) Referrals: Noemi Burnham MD [Primary Care Provider] - Paul Hendricks MD [Medical Doctor] -
--- NOTE | 2016-12-20 16:39 | RAD ---
INDICATION: Right elbow pain after a fall 2 days earlier COMPARISON: None. TECHNIQUE: 4 views right elbow. REPORT: On the lateral view radiograph there is both anterior and posterior elbow joint infusion causing elevation of the triceps tendon and elevation of the anterior fat pad. Depicted best on the AP and oblique views, there is faint lucent line just distal to the right radial head. There is no gross dislocated fracture. The remaining visualized bones are intact and appropriately aligned. IMPRESSION: Suspected nondisplaced impacted fracture of the right radial head with pathologic right elbow effusion. If the patient's symptoms persist further follow-up imaging is recommended.
== END 2016-12-20 17:01 | disposition home or self-care (01) ==
LOC: UCEAST 15:33
DX: S52.121A Displaced fracture of head of right radius, initial encounter for closed fracture (principal); F17.210 Nicotine dependence, cigarettes, uncomplicated; W19.XXXA Unspecified fall, initial encounter; Y92.9 Unspecified place or not applicable
CPT/HCPCS: 99213; G0463

== ENCOUNTER 2019-03-09 23:16 | Inpatient (IN) | payer MEDICARE ==
--- OUTSIDE RECORDS SUMMARY | 2019-03-09 23:32 | XMS REPORT | Continuity of Care Document ---
:1950 External Reference #:[id number] Author Name Shahida Bowman MD (transmitted by agent of provider Aretha Spann) Address [address] [place] [address] Care Team Providers Name Role Phone Todd Grier MD - Care Team Information Program Supervisor [phone] Otolaryngology Binh Tovar MD - Nephrology Care Team Information Program Supervisor [facility] - Clinic/Center Care Team Information Program Supervisor [phone] Agnes Wyatt MD - Adult Care Team Information Program Supervisor [phone] Reconstructive Orthopaedic Surgery Shahida Bowman MD - Nephrology Care Team Information Program Supervisor Problems Active Problems Provider Date Coronary arteriosclerosis Noemi Burnham M.D. Onset: 01/25/2010 Chronic obstructive lung disease Noemi Burnham M.D. Onset: 01/25/2010 Coronary arteriosclerosis Edilberto Young M.D., [facility], Onset: 12/23/2012 FASOK Benign essential hypertension Edilberto Young M.D., [facility], Onset: 03/24/2014 FASNC Essential hypertension Noemi Burnham M.D. Onset: 06/17/2015 Closed fracture of proximal end of Lena Bazan MD Onset: 12/22/2016 radius Conduction disorder of the heart Edilberto Young M.D., [facility], Onset: 2017 FASDWAIN Prosthetic arthroplasty of the hip Agnes Wyatt M.D. Onset: 11/26/2017 Periprosthetic osteolysis Agnes Wyatt M.D. Onset: 11/26/2017 Arthralgia of the pelvic region and Agnes Edmundo, M.D. Onset: 02/22/2018 thigh Social History Type Date Description Comments Sex Unknown Tobacco Use Start: Unknown current cigarette 1-2 cigarettes a day smoker Cigarette Use Pack Years - 30 + ETOH Use Drinks 3 Alcoholic She and split Beverages Per Day a bottle of wine daily, "occasionally more" Tobacco Use Start: Unknown Patient is a current smoke 1 pack per week smoker, smokes every day Recreational Drug Use Denies Drug Use Tobacco Use Start: Unknown States smokes 2 cigs per day Smoking Status Reviewed: 02/06/19 States smokes 2 cigs per day Exercise Type/Frequency Exercises rarely Allergies, Adverse Reactions, Alerts Active Allergies Reaction Severity Comments Date Azithromycin Urticaria Severe 01/20/2010 Oxycodone 04/26/2012 Medications Active Medications SIG Qnty Indications Ordering Provider Date Rollator with 4 x 8" 1units M25.551 [facility], 06/25/2018 [facility] wheels, seat, Karly basket, cane khan. For daily use T84.050D Z96.641 Candesartan Cilexetil take 1 tablet by 90tabs [facility], 2017 mouth once daily M.DAnalia 4mg Tablets Cane use for ambulation 1units M25.551 Agnes Wyatt M.D. 11/26/2017 [facility] - severe r hip pain Rosuvastatin Calcium take 1 tablet by 90tabs Noemi Burnham, 08/10/2017 mouth once daily M.DAnalia 5mg Tablets Xarelto take 1 tablet by 30tabs Noemi Burnham, 06/22/2017 20mg Tablets mouth once daily M.DAnalia Tylenol PM 2 tablets at [facility], 06/01/2011 Tablets bedtime ( taken as M.D. needed) Lansoprazole Take 1 Capsule By 30caps Noemi Burnham, 01/25/2010 30mg Mouth Once Daily M.DAnalia Capsules Aspirin 1 tablet once daily Noemimara Burnham, 08/02/[address] Brandt Metoprolol Tartrate take 1 tablet by 60tabs Noemi Burnham, 08/02/2009 mouth twice a day M.DAnalia 100mg Tablets Multi For Her 50+ 1 cap po daily Unknown Capsules Probiotic Acidophilus 1 cap po twice Unknown daily Am/PM Capsules Vitamin D3 High 1 by mouth in PM Unknown Potency 2000Unit Capsules Vitamin B Complex 1 by mouth every Unknown day Tablets Slow-Mag 2 by mouth three 60tabs Noemi Burnham, 71.5-119mg times a day M.D. Tablets Divalproex Sodium 1 tab by mouth 180tabs Alvaro Saldana, 500mg twice a day M.D. Tablets DR Jarvis take 1 tablet by 30tabs Noemi Burnham, 10mg Tablets mouth once daily M.D. Medications Administered in Office Medication SIG Qnty Indications Ordering Provider Date Records Fee Noemi Burnham M.D. 11/01/2018 Injection Inj, Regadenoson, 0.1 MG Edilberto Young M.D., 05/28/2017 Injection DELFINA TORO Technetium TC 99M Edilberto Young M.D., 05/28/2017 Tetrofosmin, Per Unit Dose DELFINA TORO Up To 40 Millicuries Injection B-12 Injection Daxa Pizarro M.D. 09/20/2006 Injection B-12 Injection Daxa Pizarro M.D. 09/12/2006 Injection B-12 Injection Daxa Pizarro M.D. 09/05/2006 Injection B-12 Injection Daxa Pizarro M.D. 08/29/2006 Injection B-12 Injection Daxa Pizarro M.D. 08/29/2006 Injection Immunizations CPT Code Status Date Vaccine Reaction Lot # [id number] Given 01/30/2019 Influenza Virus Vaccine, No immediate reaction [id number] Quadrivalent ([id number]), Derived From Cell 90337 Given 01/11/2018 Influenza Virus Vaccine, [id number] Quadrivalent, Split, Preservative Free 64813 Given 06/19/2016 Pneumonia Vaccine no immediate reaction [id number] noted ... hh Q2038 Given 01/11/2016 Fluzone Vaccine 32885 Given 06/17/2015 Pneumococcal Conjugate [id number] Vaccine 13 Valent For Intramuscular Use Q2039 Given 12/31/2014 Flu Vaccine NOS Q2035 Given 01/07/2014 Afluria Vaccine 14054 Given 05/01/2013 Tdap - [id number] Tetanus/Diptheria/Acellular Pertussis Q2035 Given 01/14/2013 Afluria Vaccine 98246 Given 05/07/2012 Zoster (Zostavax) Q2038 Given 12/21/2011 Fluzone Vaccine [id number] 73830 Given 12/22/2010 Influenza Virus 3Yrs & Over [id number] 11795 Given 01/21/2009 Influenza Virus Vaccine, Pandemic Formulation 22362 Given 01/21/2009 Administration Swine Flu Shot 97474 Given 12/31/2008 Influenza Virus 3Yrs & Over 06395 Given 01/21/2008 Influenza Virus 3Yrs & Over 67897 Given 01/18/2007 Influenza Virus 3Yrs & Over 16745 Given 01/16/2006 Influenza Virus 3Yrs & Over 34378 Given 01/16/2006 Influenza Virus 3Yrs & Over Vital Signs Date Vital Result Comment 02/06/2019 2:51pm Height 64 inches 5'4" Weight 131.00 lb Heart Rate 87 /min BP Systolic Sitting 106 mmHg left arm reg cuff BP Diastolic Sitting 66 mmHg left arm reg cuff O2 % BldC Oximetry 100 % room air BMI (Body Mass Index) 22.5 kg/m2 01/15/2019 2:03pm Height 64 inches 5'4" Weight 131.00 lb Heart Rate 69 /min BP Systolic 122 mmHg BP Diastolic 68 mmHg Body Temperature 97.1 F Pain Level 5 BMI (Body Mass Index) 22.5 kg/m2 Results Test Acquired Date Facility Test Result H/L Range Note Lipid Profile 12/27/2018 [facility] Triglycerides 96 mg/dL 1 (Trig/Chol/HDL) [address] [place] [address] [phone] Cholesterol 141 mg/dL 2 HDL Cholesterol 66.6 mg/dL 3 LDL Cholesterol 55 mg/dL 4 Comp Metabolic Panel 12/27/2018 [facility] Sodium 134 mmol/L Low 135-145 [address] [place] [address] [phone] Chloride 102 mmol/L Normal 101-111 Co2 Carbon Dioxide 27 mmol/L Normal 22-32 Calcium 8.8 mg/dL Normal 8.6-10.3 Albumin 3.3 g/dL Normal 3.2-5.2 Total Bilirubin 0.60 mg/dL Normal 0.2-1.0 Potassium 5.3 mmol/L High 3.5-5.0 Anion Gap 5 mmol/L Normal 2-11 Glucose 83 mg/dL Normal 70-100 Blood Urea Nitrogen 7 mg/dL Normal 6-24 Creatinine 0.93 mg/dL Normal 0.51-0.95 BUN/Creatinine Ratio 7.5 Low 8-20 Total Protein 5.6 g/dL Low 6.4-8.9 Globulin 2.3 g/dL Normal 2-4 Albumin/Globulin Ratio 1.4 Normal 1-3 Alkaline Phosphatase 82 U/L Normal 34-104 Alt 13 U/L Normal 7-52 Ast 22 U/L Normal 13-39 Egfr Non- 59.8 >60 Egfr 72.3 >60 5 Laboratory test 12/27/2018 [facility] Magnesium 1.0 mg/dL Low 1.9-2.7 [address] [place] [address] [phone] CBC Auto Diff 12/27/2018 [facility] White Blood 5.0 Normal 3.5 -10.[address] Count 10^3/uL [place], [place] [id number] [phone] Red Blood Count 2.80 10^6/uL Low 3.70-4.87 Hemoglobin 10.9 g/dL Low 12.0-16.0 Hematocrit 31 % Low 35-47 Mean Corpuscular Volume 112 fL High 80-97 7 Mean Corpuscular Hemoglobin 39 pg High 27-31 Mean Corpuscular HGB Conc 35 g/dL Normal 31-36 Red Cell Distribution Width 13 % Normal 10-15 Platelet Count 168 10^3/uL Normal 150-450 Mean Platelet Volume 8.6 fL Normal 7.4-10.4 Abs Neutrophils 2.5 10^3/uL Normal 1.5-7.7 Abs Lymphocytes 1.8 10^3/uL Normal 1.0-4.8 Abs Monocytes 0.6 10^3/uL Normal 0-0.8 Abs Eosinophils 0.1 10^3/uL Normal 0-0.6 Abs Basophils 0.0 10^3/uL Normal 0-0.2 Abs Nucleated RBC 0.0 10^3/uL Granulocyte % 50.1 % Lymphocyte % 35.4 % Monocyte % 12.4 % Eosinophil % 1.6 % Basophil % 0.5 % Nucleated Red Blood Cells % 0.1 Laboratory 12/27/2018 [facility] TSH (Thyroid 2.86 Normal 0.34 -5.60 8 test finding [address] Stim Horm) mcIU/[place] [address] [phone] 1 Desirable: <150 Borderline High: 150-199 High: 200-499 Very High: >500 2 Desirable: <200 Borderline High: 200-239 High: >239 3 Low: <40 Desirable: 40-60 High: >60 4 Desirable: <100 Near Optimal: 100-129 Borderline High: 130-159 High: 160-189 Very High: >189 5 Because ethnic data is not always readily available, this report includes an eGFR for both -Americans and non- Americans. The National Kidney Disease Education Program (NKDEP) does not endorse the use of the MDRD equation for patients that are not between the ages of 18 and 70, are , have extremes of body size, muscle mass, or nutritional status, or are non- or non-. According to the National Kidney Foundation, irrespective of diagnosis, the stage of the disease is based on the level of kidney function: Stage Description GFR(mL/min/1.73 m(2)) 1 Kidney damage with normal or decreased GFR 90 2 Kidney damage with mild decrease in GFR 60-89 3 Moderate decrease in GFR 30-59 4 Severe decrease in GFR 15-29 5 Kidney failure <15 (or dialysis) 6 FASTING 10 HOUR Copy Result to: EDILBERTO YOUNG MD [facility] ([id number]) 7 Consistent with Previous Results Reported on 05/29/2018 8 FASTING 10 HOUR Copy Result to: EDILBERTO YOUNG MD [facility] ([id number]) Procedures Date Code Description Status 11/19/2018 [id number] Mammogram Completed 10/11/2017 [id number] Mammogram Completed 08/16/2017 [id number] Diabetic Retinal Eye Exam Completed 05/03/2017 [id number] Colonoscopy Completed 09/22/2016 [id number] Bone Mineral Density Test Completed 09/22/2016 [id number] Mammogram Completed 07/15/2015 [id number] Mammogram Completed 06/11/2014 [id number] Mammogram Completed 05/20/2013 [id number] Mammogram Completed 05/09/2012 [id number] Mammogram Completed 02/21/2012 [id number] Colonoscopy Completed 04/03/2011 [id number] Bone Mineral Density Test Completed 04/03/2011 [id number] Mammogram Completed 03/01/2010 [id number] Mammogram Completed 02/24/2008 [id number] Bone Mineral Density Test Completed 02/27/2007 [id number] Colonoscopy Completed Medical Devices Description No Information Available Encounters Type Date Location Provider Dx Diagnosis Office Visit 01/15/2019 [facility] Agnes Wyatt M25.551 Pain in right hip 1:45p at [facility] Z96.641 Presence of right artificial hip joint T84.050A Periprosth osteolysis of internal prosthetic r hip jt, init Office Visit 01/07/2019 1:45p [facility] Edilberto Sage I25.10 [facility] Evelin Young M.D., disease of FACC, FASNC [place] coronary artery w/o ang pctrs I10 Essential (primary) hypertension E83.42 Hypomagnesemia I48.0 Paroxysmal atrial fibrillation Office Visit 12/26/2018 2:20p [facility] Noemi Burnham M25.551 [facility] E83.42 Hypomagnesemia E78.5 Hyperlipidemia, unspecified Z79.01 FDC (current) use of anticoagulants Office Visit 12/18/2018 2:45p [facility] Alvaro S. G40.209 Local- [facility] Of Evelin Saldana M.D. symptc epi w cmplx prt seiz,not ntrct,w/o stat epi D32.0 Benign neoplasm of cerebral meninges Z86.011 Personal history of benign neoplasm of the brain Office Visit 08/23/2018 2:20p [facility] Noemi Burnham M25.551 Pain in right Medicine - [facility] M.D. hip Z12.2 Encntr screen for malignant neoplasm of respiratory organs E83.42 Hypomagnesemia Assessments Date Code Description Provider 02/06/2019 E83.42 Hypomagnesemia Shahida Bowmna MD 01/30/2019 Z23 Encounter for immunization Nurse Visit A 01/15/2019 M25.551 Pain in right hip Agnes Wyatt M.D. 01/15/2019 Z96.641 Presence of right artificial hip Agnes Wyatt M.D. joint 01/15/2019 T84.050A Periprosthetic osteolysis of Agnes Wyatt M.D. internal prosthetic right hip joint, initial encounter 01/07/2019 I25.10 Atherosclerotic heart disease of Edilberto Young M.D., [facility], [place] coronary artery without [facility] angina pectoris 01/07/2019 I10 Essential (primary) hypertension Edilberto Young M.D., [facility] , [facility] 01/07/2019 E83.42 Hypomagnesemia Edilberto Young M.D., [facility], [facility] 01/07/2019 I48.0 Paroxysmal atrial fibrillation Edilberto Young M.D., [facility] , [facility] 12/26/2018 M25.551 Pain in right hip Noemi Burnham M.D. 12/26/2018 E83.42 Hypomagnesemia Noemi Burnham M.D. 12/26/2018 E78.5 Hyperlipidemia, unspecified Noemi Burnham M.D. 12/26/2018 Z79.01 FDC (current) use of Noemi Burhnam M.D. 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 12/18/2018 Z86.011 Personal history of benign neoplasm Alvaro Saldana M.D. of the brain 08/23/2018 M25.551 Pain in right hip Noemi Burnham M.D. 08/23/2018 Z12.2 Encounter for screening for Noemi Burnham M.D. malignant neoplasm of respirator 08/23/2018 E83.42 Hypomagnesemia Noemi Burnham M.D. Plan of Treatment Future Appointment(s):03/04/2019 2:30 pm - Shahida Bowman MD at [facility] Wyenlgdhkq06 /14/2020 3:00 pm - Noemi Burnham M.D. at [facility] Internal Medicine - [facility]12/22 2:45 pm - Alvaro Saldana M.D. at [facility] - Shahida Bowman MDE83.42 HypomagnesemiaNew Labs:Urine Magnesium 24H, Ordered: 02/06/19Creatinine 24HR Urine, Ordered: 02/06/19Magnesium, Ordered: Renal Function Panel, Ordered: 02/06/19Follow up:1 month with labs Functional Status Description No Information Available Mental Status Description No Information Available Referrals Refer to Dr Reason for Referral Status Appt Date Shahida Bowman MD Sent 02/06/[address] [place] [address] [phone] Agnes Wyatt MD Sent 01/13/2019 [address] [facility] [place] [address] [place] [address] [phone]
--- OUTSIDE RECORDS SUMMARY | 2019-03-09 23:32 | XMS REPORT | Continuity of Care Document ---
:1950 External Reference #:[id number] Author Name Shahida Bowman MD (transmitted by agent of provider Aretha Spann) Address [address] [place] [address] Care Team Providers Name Role Phone Todd Grier MD - Care Team Information Field Technical Support Consultant [phone] Otolaryngology Binh Tovar MD - Nephrology Care Team Information Field Technical Support Consultant W[facility] - Clinic/Center Care Team Information Field Technical Support Consultant [phone] Agnes Wyatt MD - Adult Care Team Information Field Technical Support Consultant [phone] Reconstructive Orthopaedic Surgery Shahida Bowman MD - Nephrology Care Team Information Field Technical Support Consultant Problems Active Problems Provider Date Coronary arteriosclerosis Noemi Burnham M.D. Onset: 01/25/2010 Chronic obstructive lung disease Noemi Burnham M.D. Onset: 01/25/2010 Coronary arteriosclerosis Edilberto Young M.D., [facility], Onset: 12/23/2012 FASOR Benign essential hypertension Edilberto Young M.D., [facility], Onset: 03/24/2014 FASNC Essential hypertension Noemi Burnham M.D. Onset: 06/17/2015 Closed fracture of proximal end of Lena Bazan MD Onset: 12/22/2016 radius Conduction disorder of the heart Edilberto Young M.D., [facility], Onset: 2017 FASDWAIN Prosthetic arthroplasty of [...] 2 cigs per day Smoking Status Reviewed: 03/04/19 States smokes 2 cigs per day Exercise Type/Frequency Exercises rarely Allergies, Adverse Reactions, Alerts Active Allergies Reaction Severity Comments Date Azithromycin Urticaria Severe 01/20/2010 Oxycodone 04/26/2012 Azithromycin 02/18/2019 Oxycodone 02/18/2019 Medications Active Medications SIG Qnty Indications Ordering Provider Date Amiloride HCL take 2 tabs by 60tabs Shahida Bowman MD 02/20/2019 5mg mouth daily in Tablets the am Rollator with 4 x 8" 1units M25.551 Noemi Burnham, 06/25/2018 [facility] [place] [place] wheels, seat, Karly basket, cane khan. For daily use T84.050D Z96.641 Candesartan Cilexetil Take 1 Tablet By 90tabs Anibal Jenkins, 2017 Mouth Every Day M.D. 4mg Tablets Cane use for ambulation 1units M25.551 Agnes Wyatt M.D. 11/26/2017 [facility] [place] [place] - severe r hip pain Rosuvastatin Calcium take 1 tablet by 90tabs Noemi Burnham, 08/10/2017 mouth once daily M.D. 5mg Tablets Xarelto take 1 tablet by 30tabs Anibal Jenkins, 06/22/2017 20mg Tablets mouth once daily M.D. Tylenol PM 2 tablets at Noemimara Burnham, 06/01/2011 Tablets bedtime ( taken as M.D. needed) Lansoprazole Take 1 Capsule By 30caps Noemi Burnham, 01/25/2010 30mg Mouth Once Daily M.D. Capsules DR Metoprolol Tartrate Take 1 Tablet By 180tabs Noemi Burnham, 08/02/2009 Mouth Twice Daily M.D. 100mg Tablets Aspirin 1 tablet once daily Noemi Burnham, 08/02/[address] Brandt Multi For Her 50+ 1 cap po [...] Code Status Date Vaccine Reaction Lot # [id number] Given 01/30/2019 Influenza Virus Vaccine, No immediate reaction [id number] Quadrivalent ([id number]), Derived From Cell 64869 Given 01/11/2018 Influenza Virus Vaccine, [id number] Quadrivalent, Split, Preservative Free 62352 Given 06/19/2016 Pneumonia Vaccine no immediate reaction [id number] noted ... Q2038 Given 01/11/2016 Fluzone Vaccine 11983 Given 06/17/2015 Pneumococcal Conjugate [id number] Vaccine 13 Valent For Intramuscular Use Q2039 Given 12/31/2014 Flu Vaccine NOS Q2035 Given 01/07/2014 Afluria Vaccine 82798 Given 05/01/2013 Tdap - [id number] Tetanus/Diptheria/Acellular Pertussis Q2035 Given 01/14/2013 Afluria Vaccine 32081 Given 05/07/2012 Zoster (Zostavax) Q2038 Given 12/21/2011 Fluzone Vaccine [id number] 59541 Given 12/22/2010 Influenza Virus 3Yrs & Over [id number] 54530 Given 01/21/2009 Influenza Virus Vaccine, Pandemic Formulation 14416 Given 01/21/2009 Administration Swine Flu Shot 95780 Given 12/31/2008 Influenza Virus 3Yrs & Over 87951 Given 01/21/2008 Influenza Virus 3Yrs & Over 78977 Given 01/18/2007 Influenza Virus 3Yrs & Over 47245 Given 01/16/2006 Influenza Virus 3Yrs & Over 84858 Given 01/16/2006 Influenza Virus 3Yrs & Over Vital Signs Date Vital Result Comment 03/04/2019 2:31pm Height 64 inches 5'4" Weight 131.00 lb Heart Rate 86 /min BP Systolic Sitting 101 mmHg left arm reg cuff BP Diastolic Sitting 64 mmHg left arm reg cuff O2 % BldC Oximetry 99 % room air BMI (Body Mass Index) 22.5 kg/m2 02/06/2019 2:51pm Height 64 inches 5'4" Weight 131.00 lb Heart Rate 87 /min BP Systolic Sitting 106 mmHg left arm reg cuff BP Diastolic Sitting 66 mmHg left arm reg cuff O2 % BldC Oximetry 100 % room air BMI (Body Mass Index) 22.5 kg/m2 Results Test Acquired Date Facility Test Result H/L Range Note Basic Metabolic 02/25/2019 [facility] Sodium 132 mmol/L Low 135-[address] [place] [address] [phone] Potassium 5.2 mmol/L High 3.5-5.0 Chloride 98 mmol/L Low 101-111 Co2 Carbon Dioxide 28 mmol/L Normal 22-32 Anion Gap 6 mmol/L Normal 2-11 Glucose 86 mg/dL Normal 70-100 Blood Urea Nitrogen 8 mg/dL Normal 6-24 Creatinine 0.99 mg/dL High 0.51-0.95 BUN/Creatinine Ratio 8.1 Normal 8-20 Calcium 8.4 mg/dL Low 8.6-10.3 Egfr Non- 55.6 >60 Egfr 67.3 >60 1 Laboratory 02/25/2019 [facility] Magnesium 1.1 Low 1.9-2.7 test finding [address] mg/[place] [address] [phone] Urine 02/11/2019 [facility] Urine 28 Abnormal 51 - 269 2, 3 Magnesium 24H [address] Magnesium mg/24h [place] [address] 24HR [phone] Urine Collection Duration 24 h Urine Volume 550 mL Urine Magnesium mg/dL 5 mg/dL 4 Creatinine 24HR 02/11/2019 [facility] Urine Collection 24 hr Urine [address] [place] [address] [phone] Urine Total Volume 550 mL Urine Creatinine Concentration 88.42 mg/dL Urine Creatinine/24 Hour 486.31 mg/24Hr Low 600-1800 Laboratory test 02/11/2019 [facility] Magnesium 1.0 mg/dL Low 1.9-2.[address] [place] [address] [phone] Renal Function 02/11/2019 [facility] Albumin 3.1 g/dL Low 3.2- 5.[address] [place] [address] [phone] Calcium 8.3 mg/dL Low 8.6-10.3 Co2 Carbon Dioxide 28 mmol/L Normal 22-32 Chloride 96 mmol/L Low 101-111 Glucose 85 mg/dL Normal 70-100 Phosphorus 3.9 mg/dL Normal 2.5-5.0 Potassium 3.9 mmol/L Normal 3.5-5.0 Sodium 131 mmol/L Low 135-145 Blood Urea Nitrogen BUN 10 mg/dL Normal 6-24 Creatinine 02/11/2019 [facility] Creatinine 1.11 mg/dL High 0.51-0.[address] [place] [address] [phone] Egfr Non- 48.7 >60 Egfr 59.0 >60 5 Lipid Profile 12/27/2018 [facility] Triglycerides 96 mg/dL 6 (Trig/Chol/HDL) [address] [place] [address] [phone] Cholesterol 141 mg/dL 7 HDL Cholesterol 66.6 mg/dL 8 LDL Cholesterol 55 mg/dL 9 Comp Metabolic Panel 12/27/2018 [facility] Sodium 134 mmol/L Low 135-[address] [place] [address] [phone] Chloride 102 mmol/L Normal 101-111 Co2 Carbon [...] Egfr Non- 59.8 >60 Egfr 72.3 >60 10 Laboratory test 12/27/2018 [facility] Magnesium 1.0 mg/dL Low 1.9-2.7 11 finding [address] [place] [address] [phone] CBC Auto Diff 12/27/2018 [facility] White Blood 5.0 Normal 3.5 -10.[address] Count 10^3/[place] [address] [phone] Red Blood Count 2.80 10^6/uL Low 3.70-4.87 Hemoglobin 10.9 g/dL Low 12.0-16.0 Hematocrit 31 % Low 35-47 Mean Corpuscular Volume 112 fL High 80-97 12 Mean Corpuscular Hemoglobin 39 pg High 27-31 [...] Red Blood Cells % 0.1 Laboratory 12/27/2018 [facility] TSH (Thyroid 2.86 Normal 0.34 -5.60 13 test finding [address] Stim Horm) mcIU/[place] [address] [phone] 1 Because ethnic data is not always readily [...] 15-29 5 Kidney failure <15 (or dialysis) 2 Low but stable Mg. urinary loss of Mg. 3 ADDITIONAL INFORMATION This test has been modified from the tow car driver's instructions. Its performance characteristics were determined by [facility] in a manner consistent with CLIA requirements. This test has not been cleared or approved by the U.S. Food and Drug Administration. 4 Test Performed by: [address] [address] School Transportation Supervisor: Devendra Amato M.D. Ph.D.; IA# [id number] 5 Because ethnic data is not always [...] 5 Kidney failure <15 (or dialysis) 6 Desirable: <150 Borderline High: 150-199 High: 200-499 Very High: >500 7 Desirable: <200 Borderline High: 200-239 High: >239 8 Low: <40 Desirable: 40-60 High: >60 9 Desirable: <100 Near Optimal: 100-129 Borderline High: 130-159 High: 160-189 Very High: >189 10 Because ethnic data is not always readily [...] 15-29 5 Kidney failure <15 (or dialysis) 11 FASTING 10 HOUR Copy Result to: EDILBERTO YOUNG MD [facility] ([id number]) 12 Consistent with Previous Results Reported on 05/29/2018 13 FASTING 10 HOUR Copy Result to: EDILBERTO YOUNG MD [facility] ([id number]) Procedures Date Code Description Status 11/19/2018 [id number] Mammogram Completed 10/11/2017 [id number] Mammogram Completed 08/16/2017 [id number] Diabetic Retinal Eye Exam Completed 05/03/2017 [id number] Colonoscopy Completed 09/22/2016 [id number] Bone Mineral Density Test Completed 09/22/2016 [id number] Mammogram Completed 07/15/2015 [id number] Mammogram Completed 06/11/2014 [id number] Mammogram Completed 05/20/2013 [id number] Mammogram Completed 05/09/2012 [id number] Mammogram Completed 02/21/2012 [id number] Colonoscopy Completed 04/03/2011 [id number] Bone Mineral Density Test Completed 04/03/2011 [id number] Mammogram Completed 03/01/2010 [id number] Mammogram Completed 02/24/2008 [id number] Bone Mineral Density Test Completed 02/27/2007 [id number] Colonoscopy Completed Medical Devices Description No Information Available Encounters Type Date Location Provider Dx Diagnosis Office Visit 02/06/2019 3:00p [facility] Nephrology Shahida Bowman MD E83.42 Hypomagnesemia E87.5 Hyperkalemia Office Visit 01/15/2019 1:45p [facility] Agnes Edmundo, M25.551 Pain in right at [place] M.D. 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 hip E83.42 Hypomagnesemia E78.5 Hyperlipidemia, unspecified Z79.01 half-way (current) use of anticoagulants Office Visit 12/18/2018 2:45p [facility] Alvaro Low G40.209 Local- [facility] Services Of Evelin Saldana M.D. symptc epi w cmplx prt seiz,not ntrct,w/o stat epi D32.0 Benign neoplasm of cerebral meninges Z86.011 Personal history of benign neoplasm of the brain Assessments Date Code Description Provider 03/04/2019 E83.42 Hypomagnesemia Shahida Bowman MD 03/04/2019 E87.5 Hyperkalemia Shahida Bomwan MD 02/06/2019 E83.42 Hypomagnesemia Shahida Bowman MD 02/06/2019 E87.5 Hyperkalemia Shahida Bowman MD 01/30/2019 Z23 Encounter for immunization Nurse Visit A 01/15/2019 M25.551 Pain in right hip Agnes Wyatt M.D. 01/15/2019 Z96.641 Presence of right artificial hip Agnes Wyatt M.D. joint 01/15/2019 T84.050A Periprosthetic osteolysis of Agnes Wyatt M.D. internal prosthetic right hip joint, initial encounter 01/07/2019 I25.10 Atherosclerotic heart disease of Edilberto Young M.D., [facility], [place] coronary artery without [facility] angina pectoris 01/07/2019 I10 Essential (primary) hypertension Edilberto Young M.D., [facility] , [facility] 01/07/2019 E83.42 Hypomagnesemia Edilberto Young M.D., [facility], [facility] 01/07/2019 I48.0 Paroxysmal atrial fibrillation Edilberto Young M.D., [facility] , [facility] 12/26/2018 M25.551 Pain in right hip Noemi Burnham M.D. 12/26/2018 E83.42 Hypomagnesemia Noemi Burnham M.D. 12/26/2018 E78.5 Hyperlipidemia, unspecified Noemi Burnham M.D. 12/26/2018 Z79.01 half-way (current) use of Noemi Burnham M.D. 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 12/18/2018 Z86.011 Personal history of benign neoplasm Alvaro Saldana M.D. of the brain Plan of Treatment Future Appointment(s):04/03/2019 2:00 pm - Shahida Bowman MD at [facility] Dlgtrdriwy42 /14/2020 3:00 pm - Noemi Burnham M.D. at [facility] Internal Medicine - [facility]cmob12/22 2:45 pm - Alvaro Saldana M.D. at [facility] - Shahida Bowman MDE83.42 HypomagnesemiaFollow up:1 wbvxzQ64.5 Hyperkalemia Functional Status Description No Information Available Mental Status Description No Information Available Referrals Refer to Dr Reason for Referral Status Appt Date Shahida Bowman MD Closed 02/06/[address] [place] [address] [phone] Agnes Wyatt MD Sent 01/13/2019 [address] [facility] [place] [address] [place] [address] [phone]
--- OUTSIDE RECORDS SUMMARY | 2019-03-09 23:32 | XMS REPORT | Continuity of Care Document ---
:1950 External Reference #:[id number] Author Name Agnes Wyatt M.D. (transmitted by agent of provider Desire Weathers) Address [address] [place] [address] Care Team Providers Name Role Phone Todd Grier MD - Care Team Information Final Finisher [phone] Otolaryngology Binh Tovar MD - Nephrology Care Team Information Final Finisher [phone] Wound Clinic - Clinic/Center Care Team Information Final Finisher [phone] Agnes Wyatt MD - Adult Care Team Information Final Finisher [phone] Reconstructive Orthopaedic Surgery Problems Active Problems Provider Date Coronary arteriosclerosis Noemi Burnham M.D. Onset: 01/25/2010 Chronic obstructive lung disease Noemi Burnham M.D. Onset: 01/25/2010 Coronary arteriosclerosis Edilberto Young M.D., [facility], Onset: 12/23/2012 FASRI Benign essential hypertension Edilberto Young M.D., [facility], Onset: 03/24/2014 FASNC Essential hypertension Noemi Burnham M.D. Onset: 06/17/2015 Closed fracture of proximal end of Lena Bazan MD Onset: 12/22/2016 radius Conduction disorder of the heart Edilberto Young M.D., [facility], Onset: 2017 FASDWAIN Prosthetic arthroplasty of the hip Agnes Wyatt M.D. Onset: 11/26/2017 Periprosthetic osteolysis Agnes Wyatt M.D. Onset: 11/26/2017 Arthralgia of the pelvic region and Agnes Wyatt M.D. Onset: 02/22/2018 thigh Social History Type [...] 2 cigs per day Smoking Status Reviewed: 01/15/19 States smokes 2 cigs per day Exercise Type/Frequency Exercises rarely Allergies, Adverse Reactions, Alerts Active Allergies Reaction Severity Comments Date Azithromycin Urticaria Severe 01/20/2010 Oxycodone 04/26/2012 Medications Active Medications SIG Qnty Indications Ordering Provider Date Rollator with 4 x 8" 1units M25.551 Noemi Tej, 06/25/2018 [facility] wheels, seat, Karly basket, cane khan. For daily use T84.050D Z96.641 Candesartan Cilexetil take 1 tablet by 90tabs Noemi Burnham, 2017 mouth once daily M.DAnalia 4mg Tablets Cane use for ambulation 1units M25.551 Agnes Wyatt M.D. 11/26/2017 [facility] - severe r hip pain Rosuvastatin Calcium take 1 tablet by 90tabs Noemi Burnham, 08/10/2017 mouth once daily M.D. 5mg Tablets Xarelto take 1 tablet by 30tabs Noemi Burnham, 06/22/2017 20mg Tablets mouth once daily M.DAnalia Tylenol PM 2 tablets at [facility], 06/01/2011 Tablets bedtime ( taken as M.D. needed) Lansoprazole take 1 capsule by 30caps Noemi Burnham, 01/25/2010 30mg mouth once daily M.DAnalia Capsules Aspirin 1 tablet once daily Noemi Burnham, 08/02/[address] Brandt Metoprolol Tartrate take 1 tablet by 60tabs Noemi Burnham, 08/02/2009 mouth twice a day M.D. 100mg Tablets Multi For Her 50+ 1 [...] Sodium 1 tab by mouth 180tabs Alvaro MaxwellAnalia Saldana, 500mg twice a day M.D. Tablets [...] Code Status Date Vaccine Reaction Lot # [id number] Given 01/11/2018 Influenza Virus Vaccine, [id number] Quadrivalent, Split, Preservative Free 98297 Given 06/19/2016 Pneumonia Vaccine no immediate reaction [id number] noted ... hh Q2038 Given 01/11/2016 Fluzone Vaccine 21842 Given 06/17/2015 Pneumococcal Conjugate [id number] Vaccine 13 Valent For Intramuscular Use Q2039 Given 12/31/2014 Flu Vaccine NOS Q2035 Given 01/07/2014 Afluria Vaccine 71164 Given 05/01/2013 Tdap - [id number] Tetanus/Diptheria/Acellular Pertussis Q2035 Given 01/14/2013 Afluria Vaccine 59636 Given 05/07/2012 Zoster (Zostavax) Q2038 Given 12/21/2011 Fluzone Vaccine [id number] 99300 Given 12/22/2010 Influenza Virus 3Yrs & Over [id number] 27911 Given 01/21/2009 Influenza Virus Vaccine, Pandemic Formulation 07339 Given 01/21/2009 Administration Swine Flu Shot 04963 Given 12/31/2008 Influenza Virus 3Yrs & Over 70068 Given 01/21/2008 Influenza Virus 3Yrs & Over 35439 Given 01/18/2007 Influenza Virus 3Yrs & Over 39235 Given 01/16/2006 Influenza Virus 3Yrs & Over 85908 Given 01/16/2006 Influenza Virus 3Yrs & Over Vital Signs Date Vital Result Comment 01/15/2019 2:03pm Height 64 inches 5'4" Weight 131.00 lb Heart Rate 69 /min BP Systolic 122 mmHg BP Diastolic 68 mmHg Body Temperature 97.1 F Pain Level 5 BMI (Body Mass Index) 22.5 kg/m2 01/07/2019 1:42pm Height 64 inches 5'4" Weight 132.00 lb with shoes Heart Rate 82 /min BP Systolic Sitting 134 mmHg lue reg cuff BP Diastolic Sitting 72 mmHg lue reg cuff BP Systolic Standing 136 mmHg lue reg cuff BP Diastolic Standing 72 mmHg lue reg cuff Respiratory Rate 14 /min BMI (Body Mass Index) 22.7 kg/m2 Ejection Fraction 60-65% echo. 06/05/17 Results Test Acquired Date Facility Test Result H/L Range Note Lipid Profile 12/27/2018 [facility] Triglycerides 96 mg/dL 1 (Trig/Chol/HDL) [address] [place] [address] [phone] Cholesterol 141 mg/dL 2 HDL Cholesterol 66.6 mg/dL 3 LDL Cholesterol 55 mg/dL 4 Comp Metabolic Panel 12/27/2018 [facility] Sodium 134 mmol/L Low 135-145 [address] [place] [address] [phone] Chloride 102 mmol/L Normal 101-111 Co2 Carbon [...] Egfr 72.3 >60 5 Laboratory test 12/27/2018 [facility] Magnesium 1.0 mg/dL Low 1.9-2.7 [address] [place] [address] [phone] CBC Auto Diff 12/27/2018 [facility] White Blood 5.0 Normal 3.5 -10.[address] Count 10^3/[place] [address] [phone] Red Blood Count 2.80 10^6/uL Low 3.70-4.87 [...] Red Blood Cells % 0.1 Laboratory 12/27/2018 [facility] TSH (Thyroid 2.86 Normal 0.34 -5.60 8 test finding [address] Stim Horm) mcIU/[place] [address] [phone] 1 Desirable: <150 Borderline High: 150-199 High: [...] HOUR Copy Result to: EDILBERTO YOUNG MD [facility] ([id number]) 7 Consistent with Previous Results Reported on 05/29/2018 8 FASTING 10 HOUR Copy Result to: EDILBERTO YOUNG MD [facility] ([id number]) Procedures Date Code Description Status 11/19/2018 [id number] Mammogram Completed 10/11/2017 [id number] Mammogram Completed 08/16/2017 [id number] Diabetic Retinal Eye Exam Completed 05/03/2017 [id number] Colonoscopy Completed 09/22/2016 [id number] Bone Mineral Density Test Completed 09/22/2016 [id number] Mammogram Completed 07/15/2015 [id number] Mammogram Completed 06/11/2014 [id number] Mammogram Completed 05/20/2013 [id number] Mammogram Completed 05/09/2012 [id number] Mammogram Completed 02/21/2012 [id number] Colonoscopy Completed 04/03/2011 [id number] Bone Mineral Density Test Completed 04/03/2011 [id number] Mammogram Completed 03/01/2010 [id number] Mammogram Completed 02/24/2008 [id number] Bone Mineral Density Test Completed 02/27/2007 [id number] Colonoscopy Completed Medical Devices Description No Information Available Encounters Type Date Location Provider Dx Diagnosis Office Visit 01/07/2019 [facility] Edilberto Cazares I25.10 Athscl heart 1:45p Of Evelin Young M.D., disease of [place] FACC, FASNC coronary artery w/o ang pctrs I10 Essential (primary) hypertension E83.42 Hypomagnesemia I48.0 Paroxysmal atrial fibrillation Office Visit 12/26/2018 2:20p [facility] Noemi Burnham, M25.551 Pain in right Medicine - [facility] M.D. 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 G40.209 Local- [facility] Services Of Evelin Saldana M.D. symptc epi w cmplx prt seiz,not ntrct,w/o stat epi D32.0 Benign neoplasm of cerebral meninges Z86.011 Personal history of benign neoplasm of the brain Office Visit 08/23/2018 2:20p [facility] Noemi Burnham, M25.551 Pain in right Medicine - [facility] M.D. hip Z12.2 Encntr screen for malignant neoplasm of respiratory organs E83.42 Hypomagnesemia Assessments Date Code Description Provider 01/15/2019 M25.551 Pain in right hip Agnes Wyatt M.D. 01/15/2019 Z96.641 Presence of right artificial hip Agnes Wyatt M.D. joint 01/15/2019 T84.050D Periprosthetic osteolysis of Agnes Wyatt M.D. internal prosthetic right hip joint, subsequent encounter 01/07/2019 I25.10 Atherosclerotic heart disease of Edilberto Young M.D., FACC, [place] coronary artery without FASNC angina pectoris 01/07/2019 I10 Essential (primary) hypertension Edilberto Young M.D., FACC , FASNC 01/07/2019 E83.42 Hypomagnesemia Edilberto Young M.D., [facility], [facility] 01/07/2019 I48.0 Paroxysmal atrial fibrillation Edilberto Young M.D., [facility] , [facility] 12/26/2018 M25.551 Pain in right hip Noemi Burnham M.D. 12/26/2018 E83.42 Hypomagnesemia Noemi Burnham M.D. 12/26/2018 E78.5 Hyperlipidemia, unspecified Noemi Burnham M.D. 12/26/2018 Z79.01 USP (current) use of Noemi Burnham M.D. anticoagulants [...] Noemi Burnham M.D. Plan of Treatment Future Appointment(s):07/01/2019 3:00 pm - Noemi Burnham M.D. at [facility] Internal Medicine - [facility]12/23/2019 2:45 pm - Alvaro Saldana M.D. 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
[2019-03-09] MEDS ORDERED: Ondansetron TAB* 4 MG PO ONE (23:46)
[2019-03-09] MEDS ORDERED: Morphine 4 MG/ML VIAL (1 ml) 4 MG/ML VIAL IV ONE (23:46)
--- NOTE | 2019-03-09 23:46 | ED ---
Lower Extremity - HPI Summary HPI Summary: 68-year-old female with a significant past medical history of atrial fibrillation on xarelto, bilateral total hip arthroplasty, brain tumor with gamma knife radiation treatment presents to emergency department today complaining of left hip pain after a fall sustained approximately one hour ago. Patient states she slipped on her porch while smoking and landed on her side. She is endorsing 10 out of 10 pain in the left hip with no radiation has not taken any medication prior to arrival for alleviation of her symptoms. Patient states she is unable to really bear weight. Patient also endorses headache, neck pain. Patient denies edema or ecchymosis in the area of the left hip. Patient denies fever, chest pain, abdominal pain, shortness breath, rash, pain with urination, syncope. - History of Current Complaint Stated Complaint: L HIP PAIN PER EMS Time Seen by Provider: 03/09/19 23:34 Hx Obtained From: Patient Mechanism Of Injury: Fall From A Standing Position Onset of Pain: Immediate Onset/Duration: Hours Severity Initially: Severe Severity Currently: Severe Pain Scale Used: 0-10 Numeric Timing: Intermittent Location: Is Discrete @ - L hip Character Of Pain: Sharp, Aching Associated Signs And Symptoms: Negative: Swelling, Redness, Bruising, Syncope, Knee Pain Aggravating Factor(s): Standing, Ambulation, Movement, Weight Bearing Alleviating Factor(s): Nothing Able to Bear Weight: No - Allergies/Home Medications Allergies/Adverse Reactions: Allergies Allergy/AdvReac Type Severity Reaction Status Date / Time azithromycin Allergy Unknown Itching Verified 03/09/19 23:47 oxycodone Allergy Unknown Rash Verified 03/09/19 23:47 PMH/Surg Hx/FS Hx/Imm Hx Endocrine/Hematology History: Reports: Hx Anemia Denies: Hx Diabetes Cardiovascular History: Reports: Hx Atrial Fibrillation - no symptoms since ablation in 2008, Hx Coronary Artery Disease - stent 2003, Hx Hypertension, Other Cardiovascular Problems/Disorders - Stent, Atrial fibrilation, ablation Denies: Hx Congestive Heart Failure, Hx Pacemaker/ICD Respiratory History: Reports: Hx Pneumonia, Hx Sleep Apnea Denies: Hx Asthma GI History: Reports: Hx Gastroesophageal Reflux Disease, Hx Irritable Bowel, Other GI Disorders - appendectomy History: Denies: Hx Acute Renal Failure, Hx Benign Prostatic Hyperplasia, Hx Dialysis , Hx Renal Disease Musculoskeletal History: Reports: Hx Arthritis, Hx Back Problems, Other Musculoskeletal History - 2 hip replacements; damage to right hip flexor Denies: Hx Osteoporosis Sensory History: Reports: Hx Contacts or Glasses - reading Denies: Hx Hearing Aid Opthamlomology History: Reports: Hx Contacts or Glasses - reading Neurological History: Reports: Hx Headaches, Other Neuro Impairments/Disorders - Hx of brain tumor Denies: Hx Dementia, Hx Developmental Delay, Hx Migraine, Hx Nerve Disease, Hx Seizures, Hx Spinal Cord Injury, Hx Transient Ischemic Attacks (TIA) Psychiatric History: Reports: Hx Anxiety, Hx Depression, Hx Panic Disorder - Cancer History Cancer Type, Location and Year: meningioma, 2008, with sx and gamma knife Hx Chemotherapy: No Hx Radiation Therapy: Yes - BRAIN - Surgical History Surgery Procedure, Year, and Place: 06/28 TOTAL RIGHT HIP REPLACEMENT; 06/27 TOTAL LEFT HIP REPLACEMENT; 08/28 GAMMA KNIFE PROCEDURE; 09/23 LT ANKLE SURGERY, [facility] [place] ; 2009 LT ANKLE HARDWARE REMOVED; 04/26 CRANIOTOMY [facility] [place]; & HEMORRHOIDECTOMY,[facility] [place]; 03/22 CARDIAC STENT; ; 1981 W.TOOTH EXTRACTION; 2009 CARDIAC ABLATION WITH STENT [place] Hx Anesthesia Reactions: No Infectious Disease History: Denies: Hx Hepatitis, Traveled Outside the [place] in Last 30 Days - Family History Known Family History: Positive: Cardiac Disease - Social History Alcohol Use: Daily Alcohol Amount: 1/2 BOTTLE WINE/DAY Substance Use Type: Reports: None Hx Tobacco Use: Yes Smoking Status (MU): Current Every Day Smoker Type: Cigarettes Amount Used/How Often: 1 pk per day Review of Systems Constitutional: Negative Eyes: Negative ENT: Negative Cardiovascular: Negative Respiratory: Negative Gastrointestinal: Negative Genitourinary: Negative Positive: Arthralgia, Myalgia, Decreased ROM. Negative: Edema Skin: Negative Positive: Headache Positive: Anxious All Other Systems Reviewed And Are Negative: Yes Physical Exam - Summary Physical Exam Summary: Patient is an pain distress upon entering the room. There is no appreciable ecchymosis, erythema, edema noted to the left hip. There is no evidence of obvious trauma or bruising elsewhere on the body. Patient is neurovascularly intact and normal neurological exam. The patient is unable to move left hip due to pain. Leg length discrepancy is unable to be appreciated due to patient having obligate flexion for relief of pain of the left hip. Triage Information Reviewed: Yes Vital Signs Reviewed: Yes Appearance: Positive: Well-Appearing, Well-Nourished, Pain Distress Skin: Positive: Warm, Skin Color Reflects Adequate Perfusion Eyes: Positive: EOMI, LAURA ENT: Positive: Hearing grossly normal Respiratory/Lung Sounds: Positive: Clear to Auscultation, Breath Sounds Present Cardiovascular: Positive: IRR, S1, S2 Abdomen Description: Positive: Nontender, Soft. Negative: Distended, Guarding Bowel Sounds: Positive: Present Musculoskeletal: Positive: Pain @ - L hip. Negative: Strength/ROM Intact Neurological: Positive: Sensory/Motor Intact, Alert, Oriented to Person Place, Time, Normal Gait, Speech Normal Psychiatric: Positive: Normal AVPU Assessment: Alert Procedures - Sedation Patient Received Moderate/Deep Sedation with Procedure: No Diagnostics - Laboratory Result Diagrams: 03/10/19 01:56 03/10/19 01:56 Lab Statement: Any lab studies that have been ordered have been reviewed, and results considered in the medical decision making process. Lower Extremity Course/Dx - Course Course Of Treatment: Patient was evaluated in the emergency department for left hip pain. Vitals are stable and she was afebrile. Patient was given 6 mg of morphine for pain as well as 4 mg of Zofran. An x-ray of the pelvis was obtained which revealed no evidence of fracture. CT scan without contrast the brain and cervical spine were ordered however due to patient cooperation was unable to be obtained. home appliance tech stated the patient called her a "bitch" and was uncooperative with exam. Pt refused CT scan of the brain and cervical spine. Laboratory studies were obtained to investigate possible intoxication. Labs returned showing blood alcohol content of 159. Pt is hyponatremic at 123. She is typicaly mildy hyponatremic but this is lower than prior measurments. Pt is asymptomatic for hyponatremia and does not require replacment in the emergency department. Pt is to f/u with her primary care provider for further managent of this chronic problem. Multiple attempts were made to ambulate her however she refused. Pts repeat physical exam was inconsient with suggested injury and pain level. when distracted she was able to have normal range of motion and movement. Pt signed out to ED attending, Dr. Barrientos at 0230 on . - Diagnoses Differential Diagnosis/HQI/PQRI: Positive: Arthritis, Contusion, Fracture ( Closed), Sprain, Strain Provider Diagnoses: Fall, Hip pain, left Discharge ED - Sign-Out/Discharge Documenting (check all that apply): Sign-Out Patient Signing out patient TO: Jaswinder Barrientos Receiving patient FROM: Siva Mcconnell - Discharge Plan Condition: Stable Disposition: HOME Patient Education Materials: Fall Prevention (ED), Hip Pain (ED) Referrals: Noemi Burnham MD [Primary Care Provider] - 5 Days Additional Instructions: You were seen in the emergency department today for hip pain. X-ray was obtained and showed no evidence of fracture. It is likely your symptoms are due to a contusion to your left hip. Please follow up with your primary care provider in 5 days for further evaluation and management of your symptoms. Please return to emergency department immediately if you develop any new or worsening symptoms. - Billing Disposition and Condition Condition: STABLE Disposition: Home
[2019-03-09] MEDS ORDERED: Ondansetron INJ* 2 MG/ML VIAL IV ONE (23:50)
[2019-03-09] MEDS ORDERED: Ondansetron INJ* 2 MG/ML VIAL ONE (23:50)
[2019-03-10] MEDS ORDERED: Morphine 4 MG/ML VIAL (1 ml) 4 MG/ML VIAL IV ONE (00:21)
[2019-03-10 02:07] LABS: ABS Lymphocytes 1.1 10^3/ul (1.0-4.8); ABS Monocytes 0.5 10^3/ul (0-0.8); ABS Neutrophils 5.2 10^3/ul (1.5-7.7); Eosinophil % 0.1 %; Hematocrit 30 % (35-47); Hemoglobin 10.5 g/dL (12.0-16.0); Lymphocyte % 15.7 %; Mean Corpuscular HGB Conc 35 g/dL (31-36); Mean Corpuscular Hemoglobin 40 pg (27-31); Mean Corpuscular Volume 113 fL (80-97); Mean Platelet Volume 8.5 fL (7.4-10.4); Platelet Count 136 10^3/uL (150-450); Red Blood Count 2.65 10^6 /uL (3.70-4.87); Red Cell Distribution Width 13 % (10-15); White Blood Count 6.8 10^3/uL (3.5-10.8)
[2019-03-10 02:18] LABS: Albumin 3.4 g/dL (3.2-5.2); Albumin/Globulin Ratio 1.3 (1-3); BUN/Creatinine Ratio 11.4 (8-20); Calcium 8.1 mg/dL (8.6-10.3); EGFR African American 62.9 (>60); Globulin 2.6 g/dL (2-4); Potassium 4.5 mmol/L (3.5-5.0); Total Bilirubin 0.3 mg/dL (0.2-1.0)
[2019-03-10] MEDS ORDERED: Cyclobenzaprine TAB* 10 MG PO PRN (03:46)
[2019-03-10] MEDS ORDERED: Morphine INJ* 4 MG/ML 1 ML SYRINGE (NEW SYRINGE VERSION) IV PRN (03:49)
[2019-03-10] MEDS ORDERED: LORazepam TAB(*) 1 MG PO PRN (04:11)
[2019-03-10] MEDS ORDERED: Morphine 4 MG/ML VIAL (1 ml) 4 MG/ML VIAL IV PRN (04:18)
[2019-03-10] MEDS: NS 0.9% 1000 ML** 1,000 ML IV SCH ×2 (05:01→17:46)
[2019-03-10] MEDS: traMADol TAB* 50 MG PO PRN ×2 (06:27→15:48)
[2019-03-10] MEDS ORDERED: Rivaroxaban TAB(*) 15 MG PO SCH (08:30)
[2019-03-10] MEDS: Lactobacillus Acidophilus* 1 TAB PO SCH (08:42)
[2019-03-10] MEDS: Ezetimibe TAB* 10 MG PO SCH (08:42)
[2019-03-10] MEDS: Divalproex DR TAB(*) 500 MG PO SCH ×2 (08:43→20:00)
[2019-03-10] MEDS: Magnesium Chloride EC TAB* 64 MG PO SCH (08:43)
[2019-03-10] MEDS: Aspirin 81 mg CHEW TAB* 81 MG TAB.CHEW PO SCH (08:44)
[2019-03-10] MEDS: Metoprolol Tartrate TAB* 100 MG TAB PO SCH ×2 (08:44→19:55)
[2019-03-10] MEDS: Cyanocobalamin TAB* 500 MCG PO SCH (08:44)
[2019-03-10] MEDS: Multivitamins/Minerals TAB PO SCH (08:45)
[2019-03-10] MEDS: Atorvastatin* 10 MG TAB PO SCH (08:45)
[2019-03-10] MEDS: Pantoprazole TAB * 40 MG TAB PO SCH (08:45)
[2019-03-10] MEDS: Calcium/Vitamin D TAB 250/125* TAB PO SCH (08:46)
[2019-03-10] MEDS ORDERED: Valsartan TAB* 40 MG PO SCH (09:00)
[2019-03-10] MEDS: Morphine INJ* 4 MG/ML 1 ML SYRINGE (NEW SYRINGE VERSION) IV PRN (09:02)
[2019-03-10] MEDS: Ondansetron INJ* 2 MG/ML VIAL IV PRN (10:25)
--- NOTE | 2019-03-10 10:25 | HP ---
CC: Dr. Burnham; Dr. Campbell; Dr. Bowman* HISTORY AND PHYSICAL: DATE OF ADMISSION: 03/10/19 PRIMARY CARE PROVIDER: Dr. Burnham. COLUMNIST: Dr. Campbell. SUBMARINE OPERATOR: Dr. Bowman CHIEF COMPLAINT: Left hip pain. HISTORY OF PRESENT ILLNESS: Ms. Farr is a 68-year-old female who has a history of bilateral hip arthroplasty, who had been in her usual state of health until the evening of 03/09/19 when she was outside smoking, getting ready to come in, slipped on the deck and fell. She had immediate left hip pain. She has been unable to ambulate since. She has moved the hip, but does complain of severe pain in the upper buttock, groin, and down the medial thigh on the left. The patient at this point is refusing any further imaging as she states she is in too much pain. She also refuses to try to get up. She denies hitting her head and she denies loss of consciousness. PAST MEDICAL HISTORY: 1. History of meningioma, status post excision, followed by gamma knife for recurrence. 2. Atrial fibrillation, paroxysmal. 3. CAD. 4. Hypertension. 5. Chronic anemia. 6. Depression. 7. Tobacco abuse. 8. Alcohol abuse. 9. History of hemorrhoids with frequent bright red blood per rectum. 10. Chronic diarrhea secondary to magnesium use. 11. IBS. 12. Seizure disorder. PAST SURGICAL HISTORY: 1. Craniotomy. 2. Gamma knife for meningioma recurrence. 3. Bilateral total hip arthroplasties. 4. ORIF left ankle and status post hardware removal. 5. . 6. Hemorrhoidectomy. MEDICATIONS: 1. Lansoprazole 30 mg p.o. daily. 2. Crestor 5 mg p.o. daily. 3. Candesartan 4 mg p.o. daily. 4. Metoprolol tartrate 100 mg p.o. b.i.d. 5. Magnesium chloride EC 71.5 mg p.o. daily. 6. Depakote DR 500 mg p.o. b.i.d. 7. Probiotic 1 cap p.o. daily. 8. Zetia 10 mg p.o. daily. 9. Vitamin B12 1000 mcg p.o. daily. 10. Multivitamin 1 tab p.o. daily. 11. Calcium plus D 2 tabs p.o. daily. 12. Tylenol 650 mg p.o. q.4 hours p.r.n. pain. 13. Aspirin 81 mg p.o. daily. ALLERGIES: AZITHROMYCIN and OXYCODONE. FAMILY HISTORY: Mom in her 80s, had a history of "blood clot" and TIAs. Dad in his 90s secondary to leukemia and metastatic colon cancer. SOCIAL HISTORY: The patient is a current smoker of one-half pack per day. She has smoked for over 50 years. She drinks 1 bottle of wine nightly. She is . She had 2 children. Her is her healthcare proxy. REVIEW OF SYSTEMS: The patient denies any fevers or chills. She is chronically anorexic. She states that her sense of taste and smell has been off , making her not want to eat. She denies any chest pain. She denies edema. She denies cough, shortness of breath. She admits to chronic diarrhea. No abdominal pain, no hematochezia, no hematuria, no dysuria. She admits to weakness of the right lower extremity chronically. No sudden change in vision. No dysphagia. She complains of severe pain in the left hip, groin, medial thigh on the left, and upper buttock. She denies rashes. She denies anxiety or depression. PHYSICAL EXAMINATION GENERAL: The patient is a well-developed, middle-aged female who appears older than her stated age, lying in the bed, frequently calling out in pain, but in no acute distress. VITAL SIGNS: Blood pressure 101/61, pulse 98, respirations 17, temp 98.1, O2 sat 95% on room air. HEENT: Pupils are approximately 2 mm and round. Extraocular muscles are intact. Oropharynx is clear but dry. There is no submandibular, cervical, or supraclavicular adenopathy. PULMONARY: Lungs are clear to auscultation bilaterally. CARDIAC: Normal S1, S2. Heart rate is irregularly irregular but in a controlled rate. There is 1+ bilateral lower extremity pitting edema. ABDOMEN: Bowel sounds present. Abdomen is soft, nontender, nondistended. MUSCULOSKELETAL: The patient moves both legs, though she asks her to help her move her left leg. She is able to flex the left hip. She does wince and cry out in pain while doing so. She has pain on internal and external rotation of the hip on the left. SKIN: Visible areas of skin are warm, dry, and without rash. NEUROLOGIC: Cranial nerves II through XII are grossly intact. Sensation is intact to light touch throughout. Strength is 5/5 and symmetric in the upper extremities. Lower extremity strength is not tested at this time. PSYCH: The patient is alert. She is oriented x3. Affect appears appropriate. DIAGNOSTIC STUDIES/LAB DATA: WBC 6.8, hemoglobin 10.5, hematocrit 30, platelets 136. Sodium 123, potassium 4.5, chloride 91, CO2 22, BUN 12, creatinine 1.05, glucose 82, calcium 8.1, bilirubin 0.3, AST 25, ALT 16, alk phos 79, albumin 3.4, serum alcohol 159. Left hip x-ray to my interpretation reveals osteopenia. I do not clearly see any fractures though defer this read to Radiology. ASSESSMENT AND PLAN: Ms. Farr is a 68-year-old female with a history of atrial fibrillation, coronary artery disease, tobacco abuse, alcohol abuse, and history of meningioma, status post excision followed by gamma knife surgery, who presents to the emergency room after sustaining a mechanical fall and now complaining of left hip pain. 1. Left hip pain. The patient's x-rays are hard to interpret. She does have known hardware loosening on the right, which is followed by Dr. Wyatt. I have explained to the patient that if her x-ray is negative and she still fails to be able to get up and ambulate, CT of the hip would be warranted to rule out an occult fracture not seen on x-ray. The patient is agreeable to this later on. For now, she will have Tylenol for mild pain, tramadol for moderate pain, and morphine for severe pain. Additionally, I have added Flexeril 5 mg p.o. t.i.d. p.r.n. spasms. Though the patient denies having spasms, she does frequently reach and grab for her buttock. Orthopedic consultation may be necessary if the patient fails to improve. 2. I am going to hold off on ordering PT until the x-ray read is back. 3. Atrial fibrillation. The patient is currently in atrial fibrillation. She remains on metoprolol tartrate 100 mg p.o. twice daily. She previously was on Xarelto; however, this is not currently on her list. I will confirm if she is still taking this. 4. Seizure disorder. We will continue Depkaterinete 5. Hyponatremia. My suspicion is the patient's hyponatremia may be related to profuse diarrhea. She does state that it has been worse over the last several days. Her mouth is dry. She will be started on normal saline at 100 mL per hour. Followup basic metabolic will be obtained at noon today. 6. Anemia. The patient is chronically anemic and her hemoglobin is at baseline. 7. Alcohol abuse. The patient admits to drinking 1 bottle of wine nightly. I will place her on the [facility] protocol, though I do not expect she would start having any withdrawal symptoms for some time as her alcohol level is still elevated. 8. Coronary artery disease, continue aspirin, statin, ARB, and beta-aimee. 9. Gastroesophageal reflux disease. Continue PPI. 10. Hypomagnesemia. I have added on magnesium level to the patient's labs obtained in the emergency room. She will continue on magnesium supplementation. Question if her hypomagnesemia is secondary to her chronic alcohol use. 11. DVT prophylaxis: According to the Adult Thrombosis Prophylaxis Risk Factor Assessment Guide, the patient has a total risk factor score of 3, making her high risk. If the patient is not on oral anticoagulant for her atrial fibrillation, heparin 5000 units subcutaneous q.8 hours will be initiated. 12. Code status is DNR. TIME SPENT: Sixty five minutes was spent admitting this patient. [id number]/[facility] #: [id number] YULIYA
--- NOTE | 2019-03-10 12:49 | PN ---
Subjective Date of Service: 03/10/19 Interval History: Ms. Farr is feeling "horrible" today. Pain is not improved. Pain is generally better at rest, but 9/10 with movement. Both neck and left hip are painful, she thinks the neck is worse. She is feeling a bit nauseous. Denies CP or SOB. No concerns from nursing. Family History: Unchanged from Admission Social History: Unchanged from Admission Past Medical History: Unchanged from Admission Objective Active Medications: Acetaminophen (Tylenol Tab*) 650 mg PO Q4H PRN PAIN - MILD Aspirin (Aspirin 81 Mg Chew Tab*) 81 mg PO DAILY [facility] Atorvastatin Calcium (Lipitor*) 10 mg PO DAILY [facility]; Protocol Calcium/Vitamin D (Oscal D Tab 250/125*) 2 tab PO DAILY [facility] Cyanocobalamin (Vitamin B12 Tab*) 1,000 mcg PO QAM [facility] Divalproex Sodium (Depakote Dr Tab(*)) 500 mg PO BID [facility] Ezetimibe (Zetia Tab*) 10 mg PO DAILY [facility] Sodium Chloride (Ns 0.9% 1000 Ml) 1,000 mls @ 100 mls/hr IV PER RATE [facility] Lactobacillus Rhamnosus (Lactobacillus Acidophilus*) 1 tab PO QAM [facility] Lorazepam (Ativan Tab(*)) 0 mg PO Q2H PRN; Protocol alcohol withdrawal Magnesium Chloride (Slow Mag Ec Tab*) 64 mg PO QAM [facility] Metoprolol Tartrate (Lopressor Tab*) 100 mg PO BID [facility] Morphine Sulfate (Morphine Inj (Syringe)*) 4 mg IV Q4H PRN PAIN - SEVERE Multivitamins/Minerals (Theragran/Minerals Tab*) 1 tab PO QAM [facility] Ondansetron HCl (Zofran Inj*) 4 mg IV Q6H PRN NAUSEA Pantoprazole Sodium (Protonix Tab*) 40 mg PO DAILY [facility]; Protocol Rivaroxaban (Xarelto(*)) 15 mg PO DAILY WITH MEAL [facility] Tramadol HCl (Ultram*) 50 mg PO Q6H PRN PAIN - MODERATE Valsartan (Diovan Tab*) 20 mg PO DAILY [facility] Vital Signs - 8 hr 03/10/19 03/10/19 03/10/19 05:00 05:29 06:27 Temperature 97.3 F Pulse Rate 56 Respiratory 20 18 20 Rate Blood Pressure 122/64 (mmHg) O2 Sat by Pulse 100 Oximetry 03/10/19 03/10/19 03/10/19 07:54 08:17 09:02 Temperature 98.9 F Pulse Rate 88 Respiratory 16 20 Rate Blood Pressure 102/47 118/70 (mmHg) O2 Sat by Pulse 98 Oximetry 03/10/19 03/10/19 10:21 10:36 Temperature 97.8 F Pulse Rate 71 Respiratory 13 13 Rate Blood Pressure 108/62 (mmHg) O2 Sat by Pulse 95 Oximetry Oxygen Devices in Use Now: None Appearance: Elderly female lying in bed in NAD Ears/Nose/Mouth/Throat: Mucous Membranes Moist Neck: NL Appearance and Movements; NL JVP, Trachea Midline Respiratory: Symmetrical Chest Expansion and Respiratory Effort, Clear to Auscultation Cardiovascular: NL Sounds; No Murmurs; No JVD Abdominal: NL Sounds; No Tenderness; No Distention Extremities: No Edema Neurological: Alert and Oriented x 3 Lines/Tubes/Other Access: Clean, Dry and Intact Peripheral IV Nutrition: Taking PO's Result Diagrams: 03/10/19 01:56 03/10/19 01:56 Assess/Plan/Problems-Billing Assessment: Ms. Farr is a 68 yo F with PMH of meningioma, pAF, CAD, HTN, anemia, depression, ETOH abuse, IBS, seizure disorder; who presented to the ED with c/o left hip pain s/p fall and was admitted for further evaluation. - Patient Problems (1) Fall Comment: - Mechanical fall at home, with alcohol being a likely contributing factor - Resulting left hip and neck pain; there is known hardware loosening on the right hip though the right side is not painful - Left hip xray unremarkable for fracture - Unable to tolerate head CT on admission; will reattempt head CT and cervical spine CT today - PT eval (2) Alcohol abuse Code(s): F10.10 - ALCOHOL ABUSE, UNCOMPLICATED Comment: - [facility] protocol (3) PAF (paroxysmal atrial fibrillation) Code(s): I48.0 - PAROXYSMAL ATRIAL FIBRILLATION Comment: - Rate controlled - Continue metoprolol, Xarelto (4) Seizure disorder Code(s): G40.909 - EPILEPSY, UNSP, NOT INTRACTABLE, WITHOUT STATUS EPILEPTICUS Comment: - Continue Depakote (5) Anemia Code(s): D64.9 - ANEMIA, UNSPECIFIED Comment: - Chronic, H&H at baseline (6) HTN (hypertension) Code(s): I10 - ESSENTIAL (PRIMARY) HYPERTENSION Comment: - Normotensive - Continue metoprolol, valsartan (7) CAD (coronary artery disease) Code(s): I25.10 - ATHSCL HEART DISEASE OF [place] CORONARY ARTERY W/O ANG PCTRS Comment: - Continue metoprolol, aspirin, atorvastatin, Zetia (8) GERD (gastroesophageal reflux disease) Code(s): K21.9 - GASTRO-ESOPHAGEAL REFLUX DISEASE WITHOUT ESOPHAGITIS Comment : - Continue pantoprazole (9) DVT prophylaxis Code(s): Z29.9 - ENCOUNTER FOR PROPHYLACTIC MEASURES, UNSPECIFIED Comment: - Xarelto (10) Full code status Code(s): Z78.9 - OTHER SPECIFIED HEALTH STATUS Comment: Status and Disposition: Observation. Anticipate d/c home vs [facility] when medically stable. Attending: Dacia Rosa
[2019-03-10 13:02] LABS: Anion Gap 8 mmol/L (2-11); BUN/Creatinine Ratio 10.8 (8-20); Blood Urea Nitrogen 12 mg/dL (6-24); CO2 Carbon Dioxide 25 mmol/L (22-32); Calcium 8.3 mg/dL (8.6-10.3); Chloride 91 mmol/L (101-111); EGFR Non-African American 48.7 (>60); Glucose 91 mg/dL (70-100); Potassium 4.9 mmol/L (3.5-5.0); Sodium 124 mmol/L (135-145)
[2019-03-10 14:42] LABS: Folate > 20.00 ng/mL (>3.99)
[2019-03-10] MEDS ORDERED: PROCHLORPERAZINE INJ 5 MG/ML 2 ML VIAL IV PRN (15:15)
[2019-03-10] MEDS: Nicotine PATCH 21 MG/24 HR* PATCH TRANSDERM SCH (15:42)
[2019-03-10] MEDS: Acetaminophen TAB* 325 MG PO PRN (20:00)
[2019-03-10] MEDS: Nicotine Patch Removal NOTE PATCH OFF SCH (20:02)
[2019-03-11] MEDS: Morphine INJ* 4 MG/ML 1 ML SYRINGE (NEW SYRINGE VERSION) IV PRN (02:52)
[2019-03-11] MEDS: Ondansetron INJ* 2 MG/ML VIAL IV PRN ×2 (02:52→15:07)
[2019-03-11] MEDS: NS 0.9% 1000 ML** 1,000 ML IV SCH (05:48)
[2019-03-11 06:33] LABS: ABS Lymphocytes 0.9 10^3/ul (1.0-4.8); ABS Monocytes 0.6 10^3/ul (0-0.8); ABS Neutrophils 4.2 10^3/ul (1.5-7.7); Eosinophil % 0.3 %; Hematocrit 26 % (35-47); Hemoglobin 8.9 g/dL (12.0-16.0); Mean Corpuscular HGB Conc 34 g/dL (31-36); Mean Corpuscular Hemoglobin 39 pg (27-31); Mean Corpuscular Volume 115 fL (80-97); Mean Platelet Volume 8.9 fL (7.4-10.4); Platelet Count 108 10^3/uL (150-450); Red Blood Count 2.26 10^6 /uL (3.70-4.87); Red Cell Distribution Width 13 % (10-15); White Blood Count 5.8 10^3/uL (3.5-10.8)
[2019-03-11 06:45] LABS: BUN/Creatinine Ratio 12.2 (8-20); Calcium 8.1 mg/dL (8.6-10.3); EGFR African American 52.4 (>60); EGFR Non-African American 43.3 (>60); Potassium 4.8 mmol/L (3.5-5.0)
[2019-03-11] MEDS: Valsartan TAB* 40 MG PO SCH (09:52)
[2019-03-11] MEDS: Atorvastatin* 10 MG TAB PO SCH (10:07)
[2019-03-11] MEDS: Multivitamins/Minerals TAB PO SCH (10:07)
[2019-03-11] MEDS: Pantoprazole TAB * 40 MG TAB PO SCH (10:08)
[2019-03-11] MEDS: Aspirin 81 mg CHEW TAB* 81 MG TAB.CHEW PO SCH (10:08)
[2019-03-11] MEDS: Divalproex DR TAB(*) 500 MG PO SCH ×2 (10:09→21:49)
[2019-03-11] MEDS: Lactobacillus Acidophilus* 1 TAB PO SCH (10:09)
[2019-03-11] MEDS: Metoprolol Tartrate TAB* 100 MG TAB PO SCH ×2 (10:10→21:49)
[2019-03-11] MEDS: Cyanocobalamin TAB* 500 MCG PO SCH (10:10)
[2019-03-11] MEDS: Calcium/Vitamin D TAB 250/125* TAB PO SCH (10:11)
[2019-03-11] MEDS: Magnesium Chloride EC TAB* 64 MG PO SCH (10:11)
[2019-03-11] MEDS: Rivaroxaban TAB(*) 20 MG TAB PO SCH (10:11)
[2019-03-11] MEDS: Ezetimibe TAB* 10 MG PO SCH (10:12)
[2019-03-11] MEDS: Nicotine PATCH 21 MG/24 HR* PATCH TRANSDERM SCH (10:13)
--- NOTE | 2019-03-11 11:47 | PN ---
Subjective Date of Service: 03/11/19 Interval History: Ms. Farr is still having significant pain today. She does not think it is improved at all from yesterday. Having a difficult time rolling in bed to use a bedpan. She is not sure what is hurting worst today, but her believes it is her hip as that is what she has been complaining to him about this morning. Denies CP or SOB. is agreeable to rehab as he cannot care for her in this state. No concerns from nursing. Family History: Unchanged from Admission Social History: Unchanged from Admission Past Medical History: Unchanged from Admission Objective Active Medications: Acetaminophen (Tylenol Tab*) 650 mg PO Q4H PRN PAIN - MILD Aspirin (Aspirin 81 Mg Chew Tab*) 81 mg PO DAILY [facility] Atorvastatin Calcium (Lipitor*) 10 mg PO DAILY [facility]; Protocol Calcium/Vitamin D (Oscal D Tab 250/125*) 2 tab PO DAILY [facility] Cyanocobalamin (Vitamin B12 Tab*) 1,000 mcg PO QAM [facility] Divalproex Sodium (Depakote Dr Tab(*)) 500 mg PO BID [facility] Ezetimibe (Zetia Tab*) 10 mg PO DAILY [facility] Lactobacillus Rhamnosus (Lactobacillus Acidophilus*) 1 tab PO QAM [facility] Lorazepam (Ativan Tab(*)) 0 mg PO Q2H PRN; Protocol alcohol withdrawal Magnesium Chloride (Slow Mag Ec Tab*) 64 mg PO QAM [facility] Metoprolol Tartrate (Lopressor Tab*) 100 mg PO BID [facility] Morphine Sulfate (Morphine Inj (Syringe)*) 4 mg IV Q4H PRN PAIN - SEVERE Multivitamins/Minerals (Theragran/Minerals Tab*) 1 tab PO QAM [facility] Nicotine (Nicotine Patch 21 Mg/24 Hr*) 1 patch TRANSDERM DAILY [facility] Ondansetron HCl (Zofran Inj*) 4 mg IV Q6H PRN NAUSEA Pantoprazole Sodium (Protonix Tab*) 40 mg PO DAILY [facility]; Protocol Prochlorperazine Edisylate (Compazine Inj*) 10 mg IV Q6H PRN NAUSEA/VOMITING Rivaroxaban (Xarelto(*)) 20 mg PO DAILY [facility] Tramadol HCl (Ultram*) 50 mg PO Q6H PRN PAIN - MODERATE Valsartan (Diovan Tab*) 20 mg PO DAILY [facility] Vital Signs - 8 hr 03/11/19 03/11/19 03/11/19 04:08 05:31 07:15 Temperature 97.8 F Pulse Rate 119 117 Respiratory 16 24 18 Rate Blood Pressure 104/54 100/46 (mmHg) O2 Sat by Pulse 93 95 Oximetry 03/11/19 03/11/19 08:00 10:09 Temperature 97.1 F Pulse Rate 74 Respiratory 16 16 Rate Blood Pressure 100/61 (mmHg) O2 Sat by Pulse 91 Oximetry Oxygen Devices in Use Now: None Appearance: Elderly female lying in bed in NAD, drowsy Ears/Nose/Mouth/Throat: Mucous Membranes Moist Neck: NL Appearance and Movements; NL JVP, Trachea Midline Respiratory: Symmetrical Chest Expansion and Respiratory Effort, Clear to Auscultation Cardiovascular: NL Sounds; No Murmurs; No JVD Abdominal: NL Sounds; No Tenderness; No Distention Extremities: No Edema Neurological: - - Oriented and will wake for short conversations, but quickly falls back asleep Lines/Tubes/Other Access: Clean, Dry and Intact Peripheral IV Nutrition: Taking PO's Result Diagrams: 03/11/19 05:50 03/11/19 05:50 Assess/Plan/Problems-Billing Assessment: Ms. Farr is a 68 yo F with PMH of meningioma, pAF, CAD, HTN, anemia, depression, ETOH abuse, IBS, seizure disorder; who presented to the ED with c/o left hip pain s/p fall and was admitted for further evaluation. - Patient Problems (1) Fall Comment: - Mechanical fall at home, with alcohol being a likely contributing factor - Resulting left hip and neck pain; there is known hardware loosening on the right hip though the right side is not painful - Left hip xray unremarkable for fracture - CT head and cervical spine unremarkable for acute changes - PT recommending rehab as she has not been able to ambulate d/t pain (2) Alcohol abuse Code(s): F10.10 - ALCOHOL ABUSE, UNCOMPLICATED Comment: - [facility] protocol (3) PAF (paroxysmal atrial fibrillation) Code(s): I48.0 - PAROXYSMAL ATRIAL FIBRILLATION Comment: - Rate controlled - Continue metoprolol, Xarelto (4) Seizure disorder Code(s): G40.909 - EPILEPSY, UNSP, NOT INTRACTABLE, WITHOUT STATUS EPILEPTICUS Comment: - Continue Depakote (5) Anemia Code(s): D64.9 - ANEMIA, UNSPECIFIED Comment: - Chronic, H&H at baseline (6) HTN (hypertension) Code(s): I10 - ESSENTIAL (PRIMARY) HYPERTENSION Comment: - Normotensive - Continue metoprolol, valsartan (7) CAD (coronary artery disease) Code(s): I25.10 - ATHSCL HEART DISEASE OF [place] CORONARY ARTERY W/O ANG PCTRS Comment: - Continue metoprolol, aspirin, atorvastatin, Zetia (8) GERD (gastroesophageal reflux disease) Code(s): K21.9 - GASTRO-ESOPHAGEAL REFLUX DISEASE WITHOUT ESOPHAGITIS Comment : - Continue pantoprazole (9) DVT prophylaxis Code(s): Z29.9 - ENCOUNTER FOR PROPHYLACTIC MEASURES, UNSPECIFIED Comment: - Xarelto (10) Full code status Code(s): Z78.9 - OTHER SPECIFIED HEALTH STATUS Comment: Status and Disposition: Inpatient. Medically stable for d/c. Awaiting bed offers for [facility]. Attending: Dacia Rosa
[2019-03-11] MEDS: Morphine INJ* 2 MG/ML 1 ML SYRINGE (TWO MG - NEW SYRINGE VERSION) IV PRN ×2 (15:07→21:19)
[2019-03-11] MEDS: traMADol TAB* 50 MG PO PRN ×2 (17:43→23:34)
[2019-03-11] MEDS: Acetaminophen TAB* 325 MG PO PRN (21:53)
[2019-03-11] MEDS: Nicotine Patch Removal NOTE PATCH OFF SCH (22:00)
[2019-03-12 05:40] LABS: ABS Basophils 0.1 10^3/ul (0-0.2); ABS Monocytes 0.8 10^3/ul (0-0.8); ABS Neutrophils 5.6 10^3/ul (1.5-7.7); Eosinophil % 0.3 %; Hematocrit 25 % (35-47); Hemoglobin 8.7 g/dL (12.0-16.0); Lymphocyte % 13.8 %; Mean Corpuscular HGB Conc 35 g/dL (31-36); Mean Corpuscular Hemoglobin 41 pg (27-31); Mean Corpuscular Volume 116 fL (80-97); Red Blood Count 2.14 10^6 /uL (3.70-4.87); Red Cell Distribution Width 13 % (10-15); White Blood Count 7.5 10^3/uL (3.5-10.8)
[2019-03-12 05:50] LABS: BUN/Creatinine Ratio 12.4 (8-20); Calcium 8.2 mg/dL (8.6-10.3); EGFR African American 49.6 (>60)
[2019-03-12 06:30] LABS: Platelet Count 98 10^3/uL (150-450)
[2019-03-12] MEDS: Valsartan TAB* 40 MG PO SCH (09:14)
[2019-03-12] MEDS: Aspirin 81 mg CHEW TAB* 81 MG TAB.CHEW PO SCH (09:15)
[2019-03-12] MEDS: Pantoprazole TAB * 40 MG TAB PO SCH (09:16)
[2019-03-12] MEDS: Calcium/Vitamin D TAB 250/125* TAB PO SCH (09:16)
[2019-03-12] MEDS: Atorvastatin* 10 MG TAB PO SCH (09:16)
[2019-03-12] MEDS: Cyanocobalamin TAB* 500 MCG PO SCH (09:16)
[2019-03-12] MEDS: Ezetimibe TAB* 10 MG PO SCH (09:16)
[2019-03-12] MEDS: Lactobacillus Acidophilus* 1 TAB PO SCH (09:16)
[2019-03-12] MEDS: Divalproex DR TAB(*) 500 MG PO SCH ×2 (09:16→20:04)
[2019-03-12] MEDS: Rivaroxaban TAB(*) 20 MG TAB PO SCH (09:16)
[2019-03-12] MEDS: Metoprolol Tartrate TAB* 100 MG TAB PO SCH ×2 (09:16→19:45)
[2019-03-12] MEDS: Multivitamins/Minerals TAB PO SCH (09:16)
[2019-03-12] MEDS: Magnesium Chloride EC TAB* 64 MG PO SCH (09:16)
[2019-03-12] MEDS: Nicotine PATCH 21 MG/24 HR* PATCH TRANSDERM SCH (09:17)
[2019-03-12] MEDS ORDERED: Metoprolol Tartrate TAB* 25 MG PO ONE (09:51)
--- NOTE | 2019-03-12 09:53 | PN ---
Subjective Date of Service: 03/12/19 Interval History: Ms. Farr is feeling fine this morning. She offers no complaints, but on my arrival she was sleeping and when she woke she said "they're trying to shove more pills in me." When asked who, she indicated it was me. She denies any pain. No concerns from nursing. Family History: Unchanged from Admission Social History: Unchanged from Admission Past Medical History: Unchanged from Admission Objective Active Medications: Acetaminophen (Tylenol Tab*) 650 mg PO Q4H PRN PAIN - MILD Aspirin (Aspirin 81 Mg Chew Tab*) 81 mg PO DAILY [facility] Atorvastatin Calcium (Lipitor*) 10 mg PO DAILY [facility]; Protocol Calcium/Vitamin D (Oscal D Tab 250/125*) 2 tab PO DAILY [facility] Cyanocobalamin (Vitamin B12 Tab*) 1,000 mcg PO QAM [facility] Divalproex Sodium (Depakote Dr Tab(*)) 500 mg PO BID [facility] Ezetimibe (Zetia Tab*) 10 mg PO DAILY [facility] Lactobacillus Rhamnosus (Lactobacillus Acidophilus*) 1 tab PO QAM [facility] Lorazepam (Ativan Tab(*)) 0 mg PO Q2H PRN; Protocol alcohol withdrawal Magnesium Chloride (Slow Mag Ec Tab*) 64 mg PO QAM [facility] Metoprolol Tartrate (Lopressor Tab*) 100 mg PO BID [facility] Morphine Sulfate (Morphine Inj (Syringe))*) 2 mg IV Q4H PRN PAIN - SEVERE Multivitamins/Minerals (Theragran/Minerals Tab*) 1 tab PO QAM [facility] Nicotine (Nicotine Patch 21 Mg/24 Hr*) 1 patch TRANSDERM DAILY [facility] Ondansetron HCl (Zofran Inj*) 4 mg IV Q6H PRN NAUSEA Pantoprazole Sodium (Protonix Tab*) 40 mg PO DAILY [facility]; Protocol Prochlorperazine Edisylate (Compazine Inj*) 10 mg IV Q6H PRN NAUSEA/VOMITING Rivaroxaban (Xarelto(*)) 20 mg PO DAILY [facility] Tramadol HCl (Ultram*) 50 mg PO Q6H PRN PAIN - MODERATE Valsartan (Diovan Tab*) 20 mg PO DAILY [facility] Vital Signs - 8 hr 03/12/19 03/12/19 04:00 08:15 Temperature 98 F 98.4 F Pulse Rate 109 113 Respiratory 16 19 Rate Blood Pressure 115/65 121/86 (mmHg) O2 Sat by Pulse 87 99 Oximetry Oxygen Devices in Use Now: None Appearance: Elderly female lying in bed in NAD Neck: NL Appearance and Movements; NL JVP, Trachea Midline Respiratory: Symmetrical Chest Expansion and Respiratory Effort, Clear to Auscultation Cardiovascular: NL Sounds; No Murmurs; No JVD, - - Irregular Abdominal: NL Sounds; No Tenderness; No Distention Extremities: No Edema Neurological: - - Oriented to self and place Lines/Tubes/Other Access: Clean, Dry and Intact Peripheral IV Nutrition: Taking PO's Result Diagrams: 03/12/19 04:43 03/12/19 04:43 Assess/Plan/Problems-Billing Assessment: Ms. Farr is a 68 yo F with PMH of meningioma, pAF, CAD, HTN, anemia, depression, ETOH abuse, IBS, seizure disorder; who presented to the ED with c/o left hip pain s/p fall and was admitted for further evaluation. - Patient Problems (1) Fall Comment: - Mechanical fall at home, with alcohol being a likely contributing factor - Resulting left hip and neck pain; there is known hardware loosening on the right hip though the right side is not painful - Left hip xray unremarkable for fracture - CT head and cervical spine unremarkable for acute changes - PT recommending rehab as she has not been able to ambulate d/t pain (2) Hyponatremia Code(s): E87.1 - HYPO-OSMOLALITY AND HYPONATREMIA Comment: - Stable - Unclear cause but may still be a bit dry - NS x1L today and recheck tomorrow (3) Alcohol abuse Code(s): F10.10 - ALCOHOL ABUSE, UNCOMPLICATED Comment: - [facility] protocol (4) PAF (paroxysmal atrial fibrillation) Code(s): I48.0 - PAROXYSMAL ATRIAL FIBRILLATION Comment: - Slightly tachycardic - Continue metoprolol, Xarelto; will give an additional 25mg metoprolol this morning (5) Seizure disorder Code(s): G40.909 - EPILEPSY, UNSP, NOT INTRACTABLE, WITHOUT STATUS EPILEPTICUS Comment: - Continue Depakote (6) Anemia Code(s): D64.9 - ANEMIA, UNSPECIFIED Comment: - Chronic, H&H at baseline (7) HTN (hypertension) Code(s): I10 - ESSENTIAL (PRIMARY) HYPERTENSION Comment: - Normotensive - Continue metoprolol, valsartan (8) CAD (coronary artery disease) Code(s): I25.10 - ATHSCL HEART DISEASE OF [place] CORONARY ARTERY W/O ANG PCTRS Comment: - Continue metoprolol, aspirin, atorvastatin, Zetia (9) GERD (gastroesophageal reflux disease) Code(s): K21.9 - GASTRO-ESOPHAGEAL REFLUX DISEASE WITHOUT ESOPHAGITIS Comment : - Continue pantoprazole (10) DVT prophylaxis Code(s): Z29.9 - ENCOUNTER FOR PROPHYLACTIC MEASURES, UNSPECIFIED Comment: - Xarelto (11) Full code status Code(s): Z78.9 - OTHER SPECIFIED HEALTH STATUS Comment: Status and Disposition: Inpatient. Medically stable for d/c. Awaiting bed offers for [facility]. Attending: Dacia Rosa
[2019-03-12] MEDS ORDERED: NS 0.9% 1000 ML** 1,000 ML IV SCH (10:00)
[2019-03-12] MEDS: Morphine INJ* 2 MG/ML 1 ML SYRINGE (TWO MG - NEW SYRINGE VERSION) IV PRN (13:51)
[2019-03-12] MEDS: traMADol TAB* 50 MG PO PRN (15:02)
--- NOTE | 2019-03-12 18:00 | PN ---
Hospitalist Progress Note Date of Service: 03/12/19 Called with low BP. Patient is asymptomatic. Has had hypotension intermittently during hospitalization. Will discontinue valsartan. Also noted to have slight creatinine increase and persistent hyponatremia, which is fairly new for her. Urine labs not checked. RN reports that she has barely eaten all day. Noted that pt is now getting 1 L NS. Will have her continue this, with continued sodium and BP monitoring.
[2019-03-12] MEDS: Mirtazapine TAB* 15 MG PO SCH (20:04)
[2019-03-12] MEDS: Nicotine Patch Removal NOTE PATCH OFF SCH (20:13)
[2019-03-13] MEDS: Acetaminophen TAB* 325 MG PO PRN (04:52)
[2019-03-13 06:31] LABS: BUN/Creatinine Ratio 15.4 (8-20); Calcium 8.2 mg/dL (8.6-10.3); EGFR African American 49.1 (>60); EGFR Non-African American 40.6 (>60); Potassium 4.7 mmol/L (3.5-5.0)
--- NOTE | 2019-03-13 09:25 | PN ---
Subjective Date of Service: 03/13/19 Interval History: Ms. aFrr is tired this morning. She is not particularly willing to wake up and speak with me. Offers no complaints. Denies pain. at bedside and notes that she has had little to nothing to eat since admission. Poor appetite has been a longstanding problem, but this is worse than usual. No concerns from nursing this morning, but patient had soft pressures last night. Family History: Unchanged from Admission Social History: Unchanged from Admission Past Medical History: Unchanged from Admission Objective Active Medications: Acetaminophen (Tylenol Tab*) 650 mg PO Q4H PRN PAIN - MILD Aspirin (Aspirin 81 Mg Chew Tab*) 81 mg PO DAILY [facility] Atorvastatin Calcium (Lipitor*) 10 mg PO DAILY [facility]; Protocol Calcium/Vitamin D (Oscal D Tab 250/125*) 2 tab PO DAILY [facility] Cyanocobalamin (Vitamin B12 Tab*) 1,000 mcg PO QAM [facility] Divalproex Sodium (Depakote Dr Tab(*)) 500 mg PO BID [facility] Ezetimibe (Zetia Tab*) 10 mg PO DAILY [facility] Sodium Chloride (Ns 0.9% 1000 Ml) 1,000 mls @ 100 mls/hr IV PER RATE [facility] Lactobacillus Rhamnosus (Lactobacillus Acidophilus*) 1 tab PO QAM [facility] Lorazepam (Ativan Tab(*)) 0 mg PO Q2H PRN; Protocol alcohol withdrawal Magnesium Chloride (Slow Mag Ec Tab*) 64 mg PO QAM [facility] Metoprolol Tartrate (Lopressor Tab*) 100 mg PO BID [facility] Mirtazapine (Remeron Tab*) 15 mg PO BEDTIME [facility] Multivitamins/Minerals (Theragran/Minerals Tab*) 1 tab PO QAM [facility] Nicotine (Nicotine Patch 21 Mg/24 Hr*) 1 patch TRANSDERM DAILY [facility] Ondansetron HCl (Zofran Inj*) 4 mg IV Q6H PRN NAUSEA Pantoprazole Sodium (Protonix Tab*) 40 mg PO DAILY [facility]; Protocol Prochlorperazine Edisylate (Compazine Inj*) 10 mg IV Q6H PRN NAUSEA/VOMITING Rivaroxaban (Xarelto(*)) 15 mg PO DAILY [facility] Tramadol HCl (Ultram*) 50 mg PO Q6H PRN PAIN - MODERATE Vital Signs - 8 hr 03/13/19 03:47 Temperature 97.7 F Pulse Rate 85 Respiratory 14 Rate Blood Pressure 104/50 (mmHg) O2 Sat by Pulse 93 Oximetry Oxygen Devices in Use Now: None Appearance: Elderly female lying in bed in NAD Neck: NL Appearance and Movements; NL JVP, Trachea Midline Respiratory: Symmetrical Chest Expansion and Respiratory Effort, Clear to Auscultation Cardiovascular: NL Sounds; No Murmurs; No JVD, - - Irregular Abdominal: NL Sounds; No Tenderness; No Distention Extremities: No Edema Neurological: - - Oriented to self and place Lines/Tubes/Other Access: Clean, Dry and Intact Peripheral IV Result Diagrams: 03/12/19 04:43 03/13/19 06:05 Assess/Plan/Problems-Billing Assessment: Ms. Farr is a 68 yo F with PMH of meningioma, pAF, CAD, HTN, anemia, depression, ETOH abuse, IBS, seizure disorder; who presented to the ED with c/o left hip pain s/p fall and was admitted for further evaluation. - Patient Problems (1) CASA (acute kidney injury) Code(s): N17.9 - ACUTE KIDNEY FAILURE, UNSPECIFIED Comment: - Likely secondary to dehydration - Continue IVF (2) Hyponatremia Code(s): E87.1 - HYPO-OSMOLALITY AND HYPONATREMIA Comment: - Improving with IVF so suspect this is secondary to dehydration - Continue IVF (3) Fall Comment: - Mechanical fall at home, with alcohol being a likely contributing factor - Resulting left hip and neck pain; there is known hardware loosening on the right hip though the right side is not painful - Left hip xray unremarkable for fracture - CT head and cervical spine unremarkable for acute changes - PT recommending rehab as she has not been able to ambulate d/t pain (4) Alcohol abuse Code(s): F10.10 - ALCOHOL ABUSE, UNCOMPLICATED Comment: - D/c [facility] (5) PAF (paroxysmal atrial fibrillation) Code(s): I48.0 - PAROXYSMAL ATRIAL FIBRILLATION Comment: - Rate controlled - Continue metoprolol, Xarelto (6) Seizure disorder Code(s): G40.909 - EPILEPSY, UNSP, NOT INTRACTABLE, WITHOUT STATUS EPILEPTICUS Comment: - Continue Depakote (7) Anemia Code(s): D64.9 - ANEMIA, UNSPECIFIED Comment: - Chronic, H&H at baseline - Macrocytic, but B12 and folate normal (8) HTN (hypertension) Code(s): I10 - ESSENTIAL (PRIMARY) HYPERTENSION Comment: - Normotensive - Continue metoprolol (9) CAD (coronary artery disease) Code(s): I25.10 - ATHSCL HEART DISEASE OF [place] CORONARY ARTERY W/O ANG PCTRS Comment: - Continue metoprolol, aspirin, atorvastatin, Zetia (10) GERD (gastroesophageal reflux disease) Code(s): K21.9 - GASTRO-ESOPHAGEAL REFLUX DISEASE WITHOUT ESOPHAGITIS Comment : - Continue pantoprazole (11) DVT prophylaxis Code(s): Z29.9 - ENCOUNTER FOR PROPHYLACTIC MEASURES, UNSPECIFIED Comment: - Xarelto (12) Full code status Code(s): Z78.9 - OTHER SPECIFIED HEALTH STATUS Comment: Status and Disposition: Inpatient. Anticipate d/c to [facility] when medically stable, hopefully 1-2 more days. Attending: Mae Mercedes
[2019-03-13] MEDS: Multivitamins/Minerals TAB PO SCH (09:52)
[2019-03-13] MEDS: NS 0.9% 1000 ML** 1,000 ML IV SCH (09:52)
[2019-03-13] MEDS: Nicotine PATCH 21 MG/24 HR* PATCH TRANSDERM SCH (09:52)
[2019-03-13] MEDS: Magnesium Chloride EC TAB* 64 MG PO SCH (09:52)
[2019-03-13] MEDS: Ezetimibe TAB* 10 MG PO SCH (09:53)
[2019-03-13] MEDS: Pantoprazole TAB * 40 MG TAB PO SCH (09:53)
[2019-03-13] MEDS: Divalproex DR TAB(*) 500 MG PO SCH ×2 (09:53→20:16)
[2019-03-13] MEDS: Lactobacillus Acidophilus* 1 TAB PO SCH (09:53)
[2019-03-13] MEDS: Rivaroxaban TAB(*) 15 MG PO SCH (09:53)
[2019-03-13] MEDS: Cyanocobalamin TAB* 500 MCG PO SCH (09:53)
[2019-03-13] MEDS: Aspirin 81 mg CHEW TAB* 81 MG TAB.CHEW PO SCH (09:53)
[2019-03-13] MEDS: Atorvastatin* 10 MG TAB PO SCH (09:53)
[2019-03-13] MEDS: Calcium/Vitamin D TAB 250/125* TAB PO SCH (09:53)
[2019-03-13] MEDS: Metoprolol Tartrate TAB* 100 MG TAB PO SCH ×2 (09:54→20:16)
[2019-03-13] MEDS: Mirtazapine TAB* 15 MG PO SCH (20:16)
[2019-03-13] MEDS: traMADol TAB* 50 MG PO PRN (20:16)
[2019-03-13] MEDS: Nicotine Patch Removal NOTE PATCH OFF SCH (20:23)
[2019-03-14] MEDS: NS 0.9% 1000 ML** 1,000 ML IV SCH (03:17)
[2019-03-14 05:19] LABS: Calcium 8.2 mg/dL (8.6-10.3); Potassium 4.8 mmol/L (3.5-5.0)
[2019-03-14 05:25] LABS: BUN/Creatinine Ratio 18.5 (8-20); EGFR African American 54.4 (>60)
[2019-03-14] MEDS: Rivaroxaban TAB(*) 15 MG PO SCH (09:22)
[2019-03-14] MEDS: Ezetimibe TAB* 10 MG PO SCH (09:22)
[2019-03-14] MEDS: Lactobacillus Acidophilus* 1 TAB PO SCH (09:22)
[2019-03-14] MEDS: Magnesium Chloride EC TAB* 64 MG PO SCH (09:22)
[2019-03-14] MEDS: Metoprolol Tartrate TAB* 100 MG TAB PO SCH (09:23)
[2019-03-14] MEDS: Cyanocobalamin TAB* 500 MCG PO SCH (09:23)
[2019-03-14] MEDS: Multivitamins/Minerals TAB PO SCH (09:23)
[2019-03-14] MEDS: Aspirin 81 mg CHEW TAB* 81 MG TAB.CHEW PO SCH (09:23)
[2019-03-14] MEDS: Calcium/Vitamin D TAB 250/125* TAB PO SCH (09:23)
[2019-03-14] MEDS: Pantoprazole TAB * 40 MG TAB PO SCH (09:23)
[2019-03-14] MEDS: Divalproex DR TAB(*) 500 MG PO SCH (09:23)
[2019-03-14] MEDS: Nicotine PATCH 21 MG/24 HR* PATCH TRANSDERM SCH (09:23)
[2019-03-14] MEDS: Atorvastatin* 10 MG TAB PO SCH (09:23)
[2019-03-14 12:28] LABS: Magnesium 1.3 mg/dL (1.9-2.7)
--- NOTE | 2019-03-14 13:18 | DS ---
CC: Dr. Noemi Burnham* DISCHARGE SUMMARY: DATE OF ADMISSION: 03/10/19 DATE OF DISCHARGE: 03/14/19 PRIMARY CARE PROVIDER: Dr. Noemi Burnham. ATTENDING PHYSICIAN: Dr. Mae Mercedes* (dictated by Janis Sterling NP). PRIMARY DIAGNOSES: 1. Acute kidney injury secondary to dehydration. 2. Hyponatremia secondary to dehydration. 3. Fall with resulting weakness. 4. Poor oral intake. SECONDARY DIAGNOSES: 1. Paroxysmal atrial fibrillation. 2. Alcohol abuse. 3. Seizure disorder. 4. Anemia. 5. Hypertension. 6. Coronary artery disease. 7. Gastroesophageal reflux disease. 8. History of meningioma, status post excision and gamma knife. 9. Irritable bowel syndrome. STUDIES WHILE IN THE HOSPITAL: 1. Left hip x-ray on 03/10/19 reads as osteopenia with nondisplaced fracture. Bilateral total hip arthroplasty. 2. Brain CT on 03/10/19 reads as no acute cranial abnormality. Postoperative changes with unchanged right frontal lobe encephalomalacia. Chronic small vessel ischemic disease is likely. 3. Cervical spine CT on 03/10/19 reads as no cervical spine fracture. Varying degrees of multilevel spondylosis resulting in up to severe C4 through C5 neural foraminal stenosis. There is no severe osseous encroachment of the spinal canal. HISTORY OF PRESENT ILLNESS AND HOSPITAL COURSE: Ms. Farr is a 68-year-old female with past medical history of meningioma, status post excision and gamma knife for recurrence of paroxysmal atrial fibrillation, coronary artery disease , hypertension, anemia, depression, alcohol abuse, seizure disorder and IBS, who presented to the emergency room on 03/10/19 with complaints of left hip pain after a fall. Please see the history and physical by Dr. Oropeza for complete summary of the events leading up to this hospitalization. In short, the patient was outside on her deck at home, when she slipped and fell. She had immediate left hip pain and was unable to ambulate, so presented to the emergency room. In the emergency room, she was noted to have stable vitals. She had imaging as noted above, which did not show any acute fracture. She had lab work which revealed a macrocytic anemia consistent with her baseline, moderate hyponatremia, acute on chronic kidney injury and a serum alcohol level of 159. The patient was going to be discharged from the emergency room, though was ultimately admitted that she was unable to ambulate. The patient does have known hardware loosening in her right hip for which she does follow with Dr. Wyatt, although she has not had any pain or complications with the right hip during this hospitalization and has only complained of left hip pain and neck pain. Imaging showed no acute fractures or injuries. The patient was requiring morphine for pain. Pain has since improved, so she is noted to be very weak. Physical Therapy has seen the patient and recommended continued rehab prior to discharge home. The patient was noted to have very poor oral intake while here in the hospital. The family states that this has been her baseline recently and she has lost a significant amount of weight. This initially started after gamma knife surgery. The patient was seen by a dietitian here in the hospital and reportedly, the patient did tell the dietitian that she is afraid to eat due to diarrhea. Family has many concerns about oral intake at this point and are concerned that she is physically too weak to lift food to her mouth. I have advised family that at this point, the patient has no physiological barriers to eating and I think simply lacks a desire and motivation to eat. She was started on mirtazapine for appetite stimulation. Hyponatremia and kidney injury were both noted to be secondary to dehydration and have improved with IV fluids. The patient does appear to have at least stage 2 chronic kidney disease at baseline. At this point, the patient 's family is agreeable to rehab, although they did express concerns to me today that they felt as though the patient was "too weak" to participate with physical therapy. PHYSICAL EXAMINATION: On exam, the patient is drowsy, but arousable. She is oriented to self, time and somewhat to situation, although mentation varies based on degree of drowsiness. There are no focal neurological deficits. Heart has an irregular rhythm without murmurs, rubs, or gallops. Rate is controlled. There is no edema. Lung sounds are clear to auscultation throughout. Physical exam was otherwise benign. Ms. Farr is stable for discharge today. Most recent vitals are as follows: Temp 96.7, heart rate 96, respiratory rate 14, oxygen saturation 95% on room air , blood pressure 112/56. DISCHARGE MEDICATIONS: New medications: Mirtazapine 15 mg p.o. at bedtime. Changed medications: Xarelto 15 mg p.o. daily (previously was 20 mg daily). Continued medications: 1. Aspirin 81 mg p.o. daily. 2. Calcium 600/vitamin D3 200 two tabs p.o. daily. 3. Vitamin B12 1000 mcg p.o. daily. 4. Depakote 500 mg p.o. b.i.d. 5. Zetia 10 mg p.o. daily. 6. Lactobacillus 1 cap p.o. daily. 7. Lansoprazole 30 mg p.o. daily. 8. Slow-Mag 64 mg p.o. daily. 9. Metoprolol tartrate 100 mg p.o. b.i.d. 10. Multivitamin 1 tab p.o. daily. 11. Rosuvastatin 5 mg p.o. daily. 12. Acetaminophen 650 mg p.o. q.4 hours p.r.n. pain. Discontinued medications: Candesartan. DISCHARGE PLAN: Ms. Farr will be discharged to subacute rehab. Activity will be as tolerated. Diet will be regular as tolerated. The patient should be encouraged to eat and drink and requires assistance with meals. Medications are noted above. Again, the patient has been started on mirtazapine for appetite stimulation. It is possible that she may need to try a different agent if this is not successful in stimulating her appetite and at that point, I would recommend Marinol. Dosing of her Xarelto has been changed as she is requiring renal dosing at this point. Blood pressure has been well managed here in the hospital and she is no longer requiring candesartan. She should see a dietitian at the rehab facility and may require a swallow evaluation if she continues to have such poor intake. P.o. fluids should be pushed to help avoid further hyponatremia and acute on chronic kidney injury. I have advised the patient that she should follow up with her oncologist. Again, the family did question about the need for IV nutrition or a feeding tube and I have advised the family that the patient does not have any indication for those interventions at this time. She will need to follow up with a provider once arriving to the rehab. I would recommend rechecking a BMP on 03/17/19 to monitor sodium and creatinine. She should return to the emergency room or nearest hospital for any worsening of symptoms, shortness of breath, lightheadedness, dizziness, chest discomfort, high fevers, chills, night sweats , loss of consciousness, or any other worrisome signs or symptoms. DISCHARGE CONDITION: Stable. DISCHARGE DISPOSITION: [facility], [place]. This is a summarized report of a complex medical history and hospital stay. For further details, please see the entire medial record. TIME SPENT: Approximately 50 minutes were spent on this discharge. JANIS STERLING, TRANSMITTER SUPERVISOR [id number]/CPS #: [id number] [email or web address]
[2019-03-14] MEDS ORDERED: Magnesium Oxide TAB* 400 MG PO ONE (13:46)
[2019-03-14 18:06] VITALS: BP 122/71
== END 2019-03-14 18:30 | DRG 556 ==
LOC: ED 23:16 → MED 03-10 03:46 → OBSVTOIN 03-10 11:00
PROVIDERS: ADMIT Hospitalist; ATTEND Internal Medicine
DX: M25.552 Pain in left hip (principal); E87.1 Hypo-osmolality and hyponatremia; N17.9 Acute kidney failure, unspecified; T84.030A Mechanical loosening of internal right hip prosthetic joint, initial encounter; Z96.643 Presence of artificial hip joint, bilateral; I48.0 Paroxysmal atrial fibrillation; I25.10 Atherosclerotic heart disease of native coronary artery without angina pectoris; F32.9 Major depressive disorder, single episode, unspecified; K64.9 Unspecified hemorrhoids; K58.0 Irritable bowel syndrome with diarrhea; G40.909 Epilepsy, unspecified, not intractable, without status epilepticus; F17.210 Nicotine dependence, cigarettes, uncomplicated; F10.10 Alcohol abuse, uncomplicated; K21.9 Gastro-esophageal reflux disease without esophagitis; E83.42 Hypomagnesemia; Z66 Do not resuscitate; W01.0XXA Fall on same level from slipping, tripping and stumbling without subsequent striking against object, initial encounter; F41.0 Panic disorder [episodic paroxysmal anxiety]; Y79.2 Prosthetic and other implants, materials and accessory orthopedic devices associated with adverse incidents; I12.9 Hypertensive chronic kidney disease with stage 1 through stage 4 chronic kidney disease, or unspecified chronic kidney disease; E86.0 Dehydration; D53.9 Nutritional anemia, unspecified; I95.9 Hypotension, unspecified; R53.1 Weakness; Y90.6 Blood alcohol level of 120-199 mg/100 ml; N18.2 Chronic kidney disease, stage 2 (mild); Z79.82 Long term (current) use of aspirin; Z79.899 Other long term (current) drug therapy; Z88.1 Allergy status to other antibiotic agents; Z88.5 Allergy status to narcotic agent; Y92.9 Unspecified place or not applicable; Z95.5 Presence of coronary angioplasty implant and graft
CPT/HCPCS: 36415; 70450; 72125; 80048; 80053; 80164; 80320; 82607; 82746; 83735; 85025; 96374; 96375; 99285; A9270-GY; G0480; G8978-GP-CM; G8979-GP-CJ; J0780; J2270; J2405

== ENCOUNTER 2019-03-17 15:20 | Inpatient (IN) | payer MEDICARE ==
[2019-03-17] MEDS ORDERED: NS 0.9% 1000 ML** 1,000 ML IV ONE ×2 (15:47→22:55)
--- NOTE | 2019-03-17 15:49 | ED ---
Palpitations / Dysrhythmia - HPI Summary HPI Summary: Patient is a 68 y/o F presenting to the ED via EMS from [facility] for a chief complaint of palpitations and dysrhythmia. Patient also notes she fell on the morning of 03/12/19 on the porch at her house, falling on her shoulder and back. Her returned home after the patient fell and EMS was called to take the patient to [facility]. Patient denies chest pain or shortness of breath, but she admits throat pain, shoulder pain, and back pain. She denies any aggravating or alleviating factors. PMHx is significant for atrial fibrillation. Patient takes Metoprolol BID and blood thinners. Allergies noted. Medications reviewed. - History of Current Complaint Chief Complaint: EDDysrhythmPalp Time Seen by Provider: 03/17/19 15:41 Hx Obtained From: Patient Onset/Duration: Sudden Onset, Still Present Timing: Constant Severity Initially: Moderate Severity Currently: Moderate Character: Fast Aggravating: Nothing Alleviating: Nothing - Allergy/Home Medications Allergies/Adverse Reactions: Allergies Allergy/AdvReac Type Severity Reaction Status Date / Time azithromycin Allergy Unknown Itching Verified 03/09/19 23:47 oxycodone Allergy Unknown Rash Verified 03/09/19 23:47 Home Medications: Home Medications Ondansetron TAB* [Zofran 4 MG Tab*] 4 mg PO BID PRN 03/17/19 [History Confirmed 03/17/19] Rosuvastatin (NF) [Crestor (NF)] 5 mg PO DAILY 03/17/19 [History Confirmed 03/17] PMH/Surg Hx/FS Hx/Imm Hx Previously Healthy: Yes Endocrine/Hematology History: Reports: Hx Anemia Denies: Hx Diabetes Cardiovascular History: Reports: Hx Atrial Fibrillation - no symptoms since ablation in 2008, Hx Coronary Artery Disease - stent 2003, Hx Hypertension, Other Cardiovascular Problems/Disorders - Stent, Atrial fibrilation, ablation Denies: Hx Congestive Heart Failure, Hx Pacemaker/ICD Respiratory History: Reports: Hx Pneumonia, Hx Sleep Apnea Denies: Hx Asthma GI History: Reports: Hx Gastroesophageal Reflux Disease, Hx Irritable Bowel, Other GI Disorders - appendectomy History: Denies: Hx Acute Renal Failure, Hx Benign Prostatic Hyperplasia, Hx Dialysis , Hx Renal Disease Musculoskeletal History: Reports: Hx Arthritis, Hx Back Problems, Other Musculoskeletal History - 2 hip replacements; damage to right hip flexor Denies: Hx Osteoporosis Sensory History: Reports: Hx Contacts or Glasses - reading Denies: Hx Legally Blind, Hx Deafness, Hx Hearing Aid Opthamlomology History: Reports: Hx Contacts or Glasses - reading Denies: Hx Legally Blind EENT History: Denies: Hx Deafness Neurological History: Reports: Hx Headaches, Other Neuro Impairments/Disorders - Hx of brain tumor Denies: Hx Dementia, Hx Developmental Delay, Hx Migraine, Hx Nerve Disease, Hx Seizures, Hx Spinal Cord Injury, Hx Transient Ischemic Attacks (TIA) Psychiatric History: Reports: Hx Anxiety, Hx Depression, Hx Panic Disorder - Cancer History Cancer Type, Location and Year: meningioma, 2008, with sx and gamma knife Hx Chemotherapy: No Hx Radiation Therapy: Yes - BRAIN - Surgical History Surgical History: Yes Surgery Procedure, Year, and Place: 06/28 TOTAL RIGHT HIP REPLACEMENT; 06/27 TOTAL LEFT HIP REPLACEMENT; 08/28 GAMMA KNIFE PROCEDURE; 09/23 LT ANKLE SURGERY, [facility] ; 2009 LT ANKLE HARDWARE REMOVED; 04/26 CRANIOTOMY [facility]; & HEMORRHOIDECTOMY,[facility]; 03/22 CARDIAC STENT; ; 1981 W.TOOTH EXTRACTION; 2009 CARDIAC ABLATION WITH STENT [place] Hx Anesthesia Reactions: No Infectious Disease History: No Infectious Disease History: Denies: Hx Hepatitis, Traveled Outside the [place] in Last 30 Days - Family History Known Family History: Positive: Cardiac Disease - Social History Occupation: Retired Lives: With Family Alcohol Use: Daily Alcohol Amount: 1/2 BOTTLE WINE/DAY Hx Substance Use: No Substance Use Type: Reports: None Hx Tobacco Use: Yes Smoking Status (MU): Current Every Day Smoker Type: Cigarettes Amount Used/How Often: 1 pk per day Review of Systems Positive: Palpitations, Other - Positive dysrhythmia. Negative: Chest Pain Negative: Shortness Of Breath Positive: Myalgia - Back, between the shoulders All Other Systems Reviewed And Are Negative: Yes Physical Exam - Summary Physical Exam Summary: Constitutional: Well-developed, Well-nourished, Alert. (-) Distressed Skin: Warm, Dry HENT: Normocephalic; Atraumatic Eyes: Conjunctiva normal Neck: Musculoskeletal ROM normal neck. (-) JVD, (-) Stridor, (-) Tracheal deviation Cardio: Irregularly irregular rhythm, Heart sounds normal; Intact distal pulses ; Radial pulses are 2+ and symmetric. (-) Murmur. Tachycardia between 120-150. Pulmonary/Chest wall: Effort normal. (-) Respiratory distress, (-) Wheezes, (-) Rales Abd: Soft, (-) tenderness, (-) Distension, (-) Guarding, (-) Rebound Musculoskeletal: (-) Edema Lymph: (-) Cervical adenopathy Neuro: Alert, Oriented x3. Some nonsensical answers to questions. Psych: Mood and affect Normal Triage Information Reviewed: Yes Vital Signs On Initial Exam: Initial Vitals Temp Pulse Resp BP Pulse Ox 98.5 F 139 20 105/69 93 03/17/19 15:24 03/17/19 15:24 03/17/19 15:24 03/17/19 15:24 03/17/19 15:24 Vital Signs Reviewed: Yes Procedures - Sedation Patient Received Moderate/Deep Sedation with Procedure: No Diagnostics - Vital Signs Vital Signs Temp Pulse Resp BP Pulse Ox 03/17/19 15:28 141 93 03/17/19 15:26 125 105/69 92 03/17/19 15:24 98.5 F 139 20 105/69 93 - Laboratory Result Diagrams: 03/21/19 04:38 03/21/19 04:38 Lab Statement: Any lab studies that have been ordered have been reviewed, and results considered in the medical decision making process. - Radiology Chest X-ray Radiology Interpretation Completed By: Radiologist Summary of Radiographic Findings: Chest X-ray IMPRESSION: BILATERAL INFILTRATES SUGGESTIVE OF PULMONARY EDEMA OR PNEUMONIA. Reviewed by Dr. Higgins. - EKG 15:33 Cardiac Rate: Other Rate - 131 BPM EKG Rhythm: Atrial Fibrillation ST Segment: Normal Ectopy: None Summary of EKG Findings: EKG at 15:33 reveals atrial fibrillation with RVR, 131 BPM, T wave inversions in V4, V5, V6, lead II, lead III, and aVL. Reviewed and interpreted by Dr. Higgins. Course/Dx - Course Course Of Treatment: Patient is here after being discharged from the hospital a couple days ago [place] [facility] for generalized weakness. Patient was found to be in atrial fibrillation and RVR upon arrival. Patient had a chest x-ray performed which showed pulmonary edema. Patient had a BNP greater than 1300. Patient was given 1 dose of diltiazem with improvement in her heart rate. Patient's 90s and was also low so she was given 2 g. Given patient's onset heart failure and atrial fibrillation, patient is admitted to the hospitalist - Diagnoses Provider Diagnoses: Atrial fibrillation with RVR, CHF exacerbation - Physician Notifications Discussed Care Of Patient With: Leora Das - At 16:58, Dr. Das agrees to admit the patient to [facility]. Time Discussed With Above Provider: 16:58 Instructed by Provider To: Admit As Inpatient - Critical Care Time Critical Care Time: 30-74 min - 35 minutes Discharge ED - Sign-Out/Discharge Documenting (check all that apply): Patient Departure - Admit - Discharge Plan Condition: Stable Disposition: ADMITTED TO [facility] - Billing Disposition and Condition Condition: STABLE Disposition: Admitted to [facility] - Attestation Statements Document Initiated by Jiaibe: Yes Documenting Scribe: Sarah Cummings Provider For Whom Scribe is Documenting (Include Credential): Damien Higgins MD Scribe Attestation: Sarah Garsia scribed for Damien Higgins MD on 03/21/19 at 0735. Scribe Documentation Reviewed: Yes Provider Attestation: The documentation as recorded by the Sarah lieberman accurately reflects the service I personally performed and the decisions made by Damien araujo MD Status of Scribe Document: Viewed
[2019-03-17] MEDS ORDERED: Diltiazem IV push/loading dose 5 MG/ML 5 ML vial (25 mg) IV SLOW PU ONE (15:51)
[2019-03-17 16:11] LABS: ABS Lymphocytes 0.6 10^3/ul (1.0-4.8); ABS Monocytes 1.3 10^3/ul (0-0.8); ABS Neutrophils 5.9 10^3/ul (1.5-7.7); Hematocrit 25 % (35-47); Hemoglobin 8.8 g/dL (12.0-16.0); Lymphocyte % 8.1 %; Mean Corpuscular HGB Conc 35 g/dL (31-36); Mean Corpuscular Hemoglobin 40 pg (27-31); Mean Corpuscular Volume 115 fL (80-97); Nucleated Red Blood Cells % 0.1; Platelet Count 231 10^3/uL (150-450); Red Blood Count 2.21 10^6 /uL (3.70-4.87); Red Cell Distribution Width 13 % (10-15); White Blood Count 7.9 10^3/uL (3.5-10.8)
[2019-03-17 16:27] LABS: Troponin I 0.33 ng/mL (<0.03)
[2019-03-17 16:35] LABS: Alcohol < 10 mg/dL (<10)
[2019-03-17 16:37] LABS: ALT 14 U/L (7-52); AST 34 U/L (13-39); Albumin 2.6 g/dL (3.2-5.2); Alkaline Phosphatase 108 U/L (34-104); Anion Gap 10 mmol/L (2-11); BUN/Creatinine Ratio 21.1 (8-20); Blood Urea Nitrogen 16 mg/dL (6-24); CO2 Carbon Dioxide 22 mmol/L (22-32); Calcium 8.8 mg/dL (8.6-10.3); Chloride 100 mmol/L (101-111); Creatine Kinase 29 U/L (10-223); EGFR African American 91.3 (>60); EGFR Non-African American 75.5 (>60); Globulin 2.7 g/dL (2-4); Glucose 100 mg/dL (70-100); Potassium 4.1 mmol/L (3.5-5.0); Sodium 132 mmol/L (135-145); Total Protein 5.3 g/dL (6.4-8.9)
[2019-03-17] MEDS ORDERED: Magnesium Sulfate 2 GM IV* 2 GM/50 ML BAG IVPB ONE ×2 (16:38→17:39)
[2019-03-17] MEDS ORDERED: Ondansetron INJ* 2 MG/ML VIAL IV PRN (17:58)
[2019-03-17] MEDS ORDERED: Ondansetron TAB* 4 MG PO PRN (18:09)
[2019-03-17 18:55] LABS: Troponin I 0.39 ng/mL (<0.03)
[2019-03-17] MEDS ORDERED: Diltiazem IV BAG* D5W Premix 125 MG/125 ML BAG IV SCH (19:00)
[2019-03-17] MEDS ORDERED: Thiamine TAB* 100 MG TAB PO SCH (19:00)
[2019-03-17 19:08] LABS: Total Iron Binding Capacity 172 mcg/dL (250-450); Transferrin 123 mg/dL (203-362)
[2019-03-17 19:18] LABS: Cholesterol 96 mg/dL; HDL Cholesterol 37.5 mg/dL; LDL Cholesterol 40 mg/dL; Triglycerides 93 mg/dL
[2019-03-17 19:19] LABS: TSH (Thyroid Stimulating Horm) 3.24 mcIU/mL (0.34-5.60)
[2019-03-17] MEDS: Divalproex DR TAB(*) 500 MG PO SCH (20:30)
[2019-03-17] MEDS: Acetaminophen TAB* 325 MG PO PRN (20:31)
[2019-03-17 20:47] LABS: % Iron Saturation 12 % (15-55); Iron < 20 ug/dL (50-212)
--- NOTE | 2019-03-17 20:49 | HP ---
CC: Dr. Noemi Burnham; Dr. Charisse Weller; Dr. Edilberto Campbell; Dr. Shahida Bowman* ADMISSION HISTORY AND PHYSICAL: DATE OF ADMISSION: 03/17/19 PRIMARY CARE PROVIDER: Dr. Noemi Burnham. MY ATTENDING WHILE IN THE HOSPITAL: Dr. Charisse Weller* (dictated by JESUS Leon). OUTPATIENT CENTER MEDICAL SPECIALIST: Dr. Edilberto Campbell. OUTPATIENT MANAGER TESTING: Dr. Shahida Bowman. CHIEF COMPLAINT: Palpitations. HISTORY OF PRESENT ILLNESS: Ms. Farr is a 68-year-old female with past medical history significant for paroxysmal atrial fibrillation; coronary artery disease, status post stenting; seizures; meningioma, status post resection and gamma knife, who presents to the emergency department after being sent from [facility]. The patient was recently admitted to this hospital for falls, weakness and alcohol withdrawal from 03/10/19 to 03/14/19. The patient during that time underwent physical therapy and was found to be very weak, was noted to have anemia, very poor oral intake and hypomagnesemia which was chronic. The patient was discharged to [facility] on 03/14/19 where she has been having persistently poor appetite and weakness as well as intermittent confusion as noted by her which he states started at the time of her first admission. The patient at [facility] complained of palpitations and chest pain like a brick sitting on her chest, had an EKG done and was found to be in atrial fibrillation. The patient was transported to the hospital. The patient at the hospital does not remember much about her symptoms. She is hazy on why she is there, where she was and what was the circumstance leading up to her hospitalization, but does eventually know she is in the ER. She claims she has no more chest pain, but she did chest pressure earlier in association with her palpitations. The patient states this went away when she was given medications for her palpitations. The patient states she has persistently poor appetite, but she blames this on the smell of wheat, which she says permeates all of the foods she eats at [facility]. The patient does not think she is confused at all, but claims she was very mean to the nurses at [facility] and she cannot explain why. The patient had no recent seizures per reports. The patient has not had anything to drink and has not smoked since she has been admitted to the hospital 7 days ago. The patient states she had an ablation for her AFib and does not remember when that occurred. The patient does not think she missed any of her medications. The patient's notes no change in her diet or appetite since she has been at the senior living. In the emergency department, the patient was found to be in atrial fibrillation with rapid ventricular response and had a chest x-ray consistent with pulmonary edema and laboratory data with an elevated troponin, elevated BNP consistent with heart failure. Due to concern for new heart failure with atrial fibrillation with rapid ventricular response, we were asked to evaluate the patient for admission to the hospital. PAST MEDICAL HISTORY: Paroxysmal atrial fibrillation; coronary artery disease, status post stenting; hypertension; meningioma, status post resection; chronic macrocytic anemia; irritable bowel syndrome; seizures; chronic diarrhea. PAST SURGICAL HISTORY: Craniotomy, gamma knife, bilateral total hip arthroplasties, ORIF of the ankle, ablation, cardiac stent in 2003, , hysterectomy. MEDICATIONS: Per [facility] records: 1. Tylenol 650 mg p.o. q.4 hours as needed. 2. Aspirin 81 mg p.o. daily. 3. Calcium/D 600/200 two tabs p.o. daily. 4. Depakote 500 mg p.o. b.i.d. 5. Probiotic 1 tab p.o. daily. 6. Lansoprazole 30 mg p.o. daily. 7. Metoprolol tartrate 100 mg p.o. b.i.d. 8. Mirtazapine 15 mg p.o. daily. 9. Multivitamin 1 tab p.o. daily. 10. Rosuvastatin 5 mg p.o. daily. 11. Slow-Mag 71.5 mg p.o. daily. 12. Vitamin B12/folate 500/400 two tabs p.o. daily. 13. Xarelto 15 mg p.o. daily. 14. Zetia 10 mg p.o. daily. 15. Zofran 4 mg p.o. b.i.d. as needed. ALLERGIES: AZITHROMYCIN and OXYCODONE. FAMILY HISTORY: The patient's mother of complications of blood clot in her 80s. The patient's father of leukemia and colon cancer in his 90s. SOCIAL HISTORY: The patient smoked half pack a day for 50 years. The patient drank a bottle of wine for many years a day before coming into the emergency department 7 days ago. The patient denies illicit drug use. 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 The patient is and has 2 children. The patient's surrogate decision maker will be her , Zach Farr, and she would like to be a do not resuscitate. REVIEW OF SYSTEMS: A 10-point review of systems was reviewed with the patient and is negative except as above in the HPI. PHYSICAL EXAMINATION GENERAL: The patient is a 68-year-old female, who appears stated age and sitting comfortably in bed, in no acute distress. VITAL SIGNS: At the time of evaluation, temperature 98.5, pulse rate 111, respiratory rate 20, oxygen saturation 89% on room air, blood pressure 105/69. HEENT: Head: Normocephalic, atraumatic. Sclerae anicteric. No conjunctival injection. Nasal mucosa moist. Oral mucosa moist. No pharyngeal erythema, discharge, or exudate. NECK: Supple, nontender. No lymphadenopathy. No carotid bruits auscultated. No JVD. RESPIRATORY: Dry rales heard in the bilateral lower lobes and in the anterior lung gomez. No adventitious lung sounds. Good air exchange bilaterally. CARDIAC: Irregularly irregular rhythm. No clicks, murmurs, gallops, or rubs. Pulses are 2+ in the bilateral dorsalis pedis, posterior tibialis, and radial areas. ABDOMEN: Soft, nontender, nondistended. Bowel sounds present and normoactive in all 4 quadrants. No hepatosplenomegaly. No abdominal bruits auscultated. No hepatojugular reflux. GENITOURINARY: No suprapubic or CVA tenderness. NEURO: Cranial nerves II through XII intact. No nystagmus. No other focal deficits. Alert and oriented to self and place, but not time. No abnormal movements. SKIN: Clean, dry, and intact. No rash. DIAGNOSTIC STUDIES/LAB DATA: White blood cell count 7.9, hemoglobin 8.8, MCV 115, platelet count 231. Sodium 132, potassium 4.1, chloride 100, carbon dioxide 22, anion gap 10, BUN 16, creatinine 0.76, glucose 100, calcium 8.8, magnesium 1.0. Bilirubin 0.4, AST 34, ALT 14, alkaline phosphatase 108. Creatine kinase 29, troponin I 0.33, BNP greater than 1300. Protein 5.3, albumin 2.7, globulin 2.7. Serum alcohol less than 10. Studies: EKG shows atrial fibrillation, rate of 131, QTc of 477, normal axis. No hypertrophy or enlargement. T-wave inversion in the lateral leads. Compared to previous exam, atrial fibrillation has replaced normal sinus rhythm and T-wave inversions in the lateral leads are new. Chest x-ray read as bibasilar bilateral infiltrates consistent with pulmonary edema or pneumonia. ASSESSMENT AND PLAN: Impression: Ms. Farr is a 68-year-old female with past medical history significant for paroxysmal atrial fibrillation, coronary artery disease, meningioma, alcohol abuse and severe hypomagnesemia, who presents to the emergency department with a recurrence of her paroxysmal atrial fibrillation with rapid ventricular response. The patient will be admitted to the hospital for atrial fibrillation with rapid ventricular response and new onset heart failure. 1. Atrial fibrillation with rapid ventricular response, heart failure. The patient appears to be in heart failure with atrial fibrillation with heart rate around 140. This has improved with 1 dose of diltiazem. The patient was given 2 g of magnesium as well. The patient will be started on diltiazem drip at 5 mg an hour and this will be adjusted per the providers on the floor to achieve a heart rate less than 110. The patient's atrial fibrillation is likely the cause of her heart failure. The patient will be continued on her home dose of metoprolol as well. She does not appear to have missed any doses. The patient is not drinking at this time and is very unlikely to be withdrawing from alcohol. There are no obvious other provoking factors for her atrial fibrillation. A TSH will be checked. The patient's troponins will be trended. The patient will have an echocardiogram to assess her ejection fraction and optimize treatment after that. Cardiology consultation for a possible cardioversion should be considered if the patient does not respond to medical therapy. 2. Elevated troponin. The patient's troponin is elevated and she has nonspecific ST segment changes. This is likely related to demand from her rapid ventricular response. The patient is no longer having chest pain. The patient has known coronary artery disease. The patient is already on Xarelto and aspirin. The patient will be continued on these medications. Heparin drip will not be started. The patient's troponin will be trended to peak. 3. Coronary artery disease. See above discussion. Continue the patient's aspirin, Xarelto. Hold the patient's Zetia as she has chronic hypomagnesemia, complaints of diarrhea and this is a known common side effect of Zetia. We will update lipid profile. 4. Hypomagnesemia. The patient's hypomagnesemia is severe and persistent. The patient has been seen in consultation by Nephrology and if her kidneys appear to be appropriately retaining her magnesium, the patient will be continued on her diet and high magnesium foods as well as her Slow-Mag. The patient will be given IV magnesium while in the hospital. The patient will have her lansoprazole stopped at this time as this can contribute to hypomagnesemia. The patient's chronic diarrhea may also be contributing, so her Zetia will be stopped as well. Antidiarrheal agents may be added on as needed. We will continue the patient's probiotic. This is likely contributing to the patient's atrial fibrillation as well as seizures. 5. History of seizures. This is secondary to meningioma and secondary surgery and gamma knife radiation. Continue the patient's Depakote. Check Depakote level. 6. Acute on chronic anemia. The patient's anemia is worse than it previously has been in the past. This is unclear etiology. The patient has not had iron studies since 2017 available in the system. These will be repeated. The patient's B12 and folate are normal. TSH will be checked as above. This is likely related to bone marrow suppression from the patient's alcoholism and this hopefully will improve with alcohol abstinence. As her platelet count is already rebounding, the patient has an erythropoietin level pending as the patient does have chronic kidney disease, though this is better than it normally is at this time. Hematology consult may be considered in the future if the patient's anemia gets worse or bone marrow biopsy is being considered. 7. Irritable bowel syndrome, diarrhea. See discussion as above. 8. Hypertension. The patient is currently low end of normotensive. Continue metoprolol as above and diltiazem drip. We will not diurese at this time until her rate is controlled to avoid hypotension. Fluids will not be given due to fluid overload. The patient did receive 1 L in the emergency department. 9. DVT prophylaxis: Continue the patient's Xarelto. 10. Hyperlipidemia. Continue the patient's rosuvastatin. Hold the patient's Zetia. 11. FEN: The patient will have a regular unrestricted diet, dietary consult and no fluids as above. The patient will be on mirtazapine for appetite stimulation. 12. Disposition: The patient is admitted inpatient to the hospital with estimated length of stay greater than 2 midnights. TIME SPENT: Approximately 75 minutes was spent on the admission of this patient , 30 of which was spent [id number] with the patient obtaining history and physical and discussing treatment plan. This plan was discussed with my attending, Dr. Charisse Weller, and she is in agreement. JESUS LEON [id number]/CPS #: [id number] MTDMario Alberto
[2019-03-17] MEDS ORDERED: Thiamine INJ* 100 MG/ML 2 ML VIAL IV SCH (21:00)
[2019-03-17] MEDS ORDERED: Metoprolol Tartrate TAB* 100 MG TAB PO SCH (21:00)
[2019-03-17 21:27] LABS: Ferritin 371.4 ng/mL (11-307)
[2019-03-17 21:48] LABS: Troponin I 0.31 ng/mL (<0.03)
[2019-03-18] MEDS: Thiamine IV 500 MG in NS 0.9% 250 ML (Wernicke-Korsakoff) IV SCH ×4 (00:09→22:31)
[2019-03-18] MEDS: Mirtazapine TAB* 15 MG PO SCH ×2 (00:16→22:31)
--- NOTE | 2019-03-18 00:33 | PN ---
Hospitalist Progress Note Date of Service: 03/18/19 Called to see patient for low bp 73/47mmhg 68y/o female, admitted for AF with RVR, on cardizem drip. Currently rate controlled. Patient did admit mild dizziness, but felt better in terms of palpitation. She admitted low intake (rarely ate) as she lost taste and smell. She started to tell me that she had an operation for seizure which she was suspecting causing nerve damage leading to taste and smell loss. She had no fever, chills, no infective sx. Was on cardizem drip until bp drop Last metoprolol 100mg was 8pm Last echo documented in branch chief Dr. Campbell outpatient 01/07/2019: EF 60-65% in May, I held off cardizem, gave 1L NS bolus , rechecked bp 89/60mmhg after 1 hour Patient felt better PE: Decreased skin turgor Heart: irregularly irregular Lung: bibasal creps no peripheral edema A: 1. Hypotension, multifactorial (dehydration, medication, probable new CHF in the setting of AF with RVR) - hold off further iv bolus - switch metoprolol to digoxin - echo tomorrow - if BP persistently low, may need higher level care 2. AF with RVR - rate controlled now - digoxin bolus if HR goes high
[2019-03-18 01:03] LABS: Troponin I 0.35 ng/mL (<0.03)
[2019-03-18 05:54] LABS: Hematocrit 25 % (35-47); Hemoglobin 8.5 g/dL (12.0-16.0); Mean Corpuscular HGB Conc 33 g/dL (31-36); Mean Corpuscular Hemoglobin 39 pg (27-31); Mean Corpuscular Volume 116 fL (80-97); Mean Platelet Volume 8.2 fL (7.4-10.4); Platelet Count 246 10^3/uL (150-450); Red Blood Count 2.19 10^6 /uL (3.70-4.87); Red Cell Distribution Width 14 % (10-15); White Blood Count 8.5 10^3/uL (3.5-10.8)
[2019-03-18 06:01] LABS: BUN/Creatinine Ratio 22.6 (8-20); Calcium 8.5 mg/dL (8.6-10.3); EGFR African American 81.3 (>60); EGFR Non-African American 67.2 (>60); Magnesium 1.8 mg/dL (1.9-2.7); Potassium 4.6 mmol/L (3.5-5.0)
[2019-03-18 07:47] LABS: C Reactive Protein 96.06 mg/L (<8.01)
[2019-03-18 07:48] LABS: ABS Eosinophils 0.1 10^3/ul (0-0.6); ABS Lymphocytes 0.8 10^3/ul (1.0-4.8); ABS Neutrophils 6.7 10^3/ul (1.5-7.7); Eosinophil % 0.8 %
[2019-03-18] MEDS ORDERED: Furosemide IV* 10 MG/ML VIAL (40 MG) IV SLOW PU SCH (08:00)
[2019-03-18] MEDS ORDERED: Perflutren Lipid Microsphere* 3 ML VIAL ONE (08:45)
[2019-03-18] MEDS ORDERED: Rivaroxaban TAB(*) 15 MG PO SCH (09:00)
[2019-03-18] MEDS ORDERED: Metoprolol Succinate XL TAB* 50 MG PO SCH (09:00)
[2019-03-18] MEDS: Calcium/Vitamin D TAB 250/125* TAB PO SCH (10:11)
[2019-03-18] MEDS: Magnesium Chloride EC TAB* 64 MG PO SCH (10:11)
[2019-03-18] MEDS: Acetaminophen TAB* 325 MG PO PRN ×2 (10:11→22:32)
[2019-03-18] MEDS: Atorvastatin* 10 MG TAB PO SCH (10:11)
[2019-03-18] MEDS: Divalproex DR TAB(*) 500 MG PO SCH ×2 (10:11→22:31)
[2019-03-18] MEDS: Cyanocobalamin TAB* 500 MCG PO SCH (10:11)
[2019-03-18] MEDS: Lactobacillus Acidophilus* 1 TAB PO SCH (10:12)
[2019-03-18] MEDS: Rivaroxaban TAB(*) 20 MG TAB PO SCH (10:12)
[2019-03-18] MEDS: Aspirin 81 mg CHEW TAB* 81 MG TAB.CHEW PO SCH (10:12)
[2019-03-18] MEDS: Multivitamins/Minerals TAB PO SCH (10:12)
--- NOTE | 2019-03-18 10:12 | ECHO ---
*[facility]* [place] [address] Fax #: [phone] Transthoracic Echocardiogram Patient: Janell Farr : 1950 Study Date: 03/18/2019 Age: 68 Gender: F HR: 92 bpm Height: 64 in /162.6 cm BSA: 1.57 m^2 Weight: 119.7 lb /54.4 kg BMI: 20.6 kg/m^2 *Director Learning And Development: * Doris Torres RDCS RN *Referring Physician: * Devendra Rios *Reading Physician: * Hortencia Coronel MD Indications: Congestive Heart Failure. Chest Pain, unspecified. History: Atrial fibrillation. Coronary artery disease. PCI in 2003. Chronic macrocytic anemia. ETOH use until recently. Meningioma with resection. Risk factors: Former tobacco use. Conclusions Summary: - Left ventricle: Systolic function is moderately reduced. The estimated ejection fraction is 30-35%. Hypokinesis of the mid-apicalanteroseptal myocardium. Hypokinesis of the mid-apicallateral myocardium. Hypokinesis of the inferior and basal inferoseptal myocardium. Hypokinesis of the mid-apicalanterior myocardium. - Left atrium: The atrium is severely dilated. - Mitral valve: There is moderate regurgitation. - Tricuspid valve: There is moderate regurgitation. - Pulmonary arteries: Systolic pressure is moderately increased, estimated to be 49 mm Hg. - C/t 06/05/2017, left ventricle ejection fraction was reported 60-65% then. Mitral regurgitation was trace then. Study data: Transthoracic echocardiogram. Procedure: Transthoracic echocardiography was performed. Image quality was fair. The study was technically limited due to smoking history. Intravenous Definity 3 ml was administered to enhance imaging. Complete 2D, spectral Doppler, and color flow Doppler. Location: Bedside. Patient status: Observation. Patient room number: 437. Rhythm: Atrial fibrillation. Findings Left ventricle: The cavity size is normal. Wall thickness is normal. Systolic function is moderately reduced. The estimated ejection fraction is 30-35%. Regional wall motion abnormalities: Hypokinesis of the mid-apicalanteroseptal myocardium. Hypokinesis of the mid-apicallateral myocardium. Hypokinesis of the inferior and basal inferoseptal myocardium. Hypokinesis of the mid-apicalanterior myocardium. Left ventricular diastolic function parameters are indeterminate. Right ventricle: The cavity size is normal. Systolic function is normal. Left atrium: The atrium is severely dilated. Right atrium: The atrium is mildly dilated. Mitral valve: The leaflets are mildly thickened. There is no evidence of stenosis. There is moderate regurgitation. Aortic valve: The valve is trileaflet. The leaflets are mildly thickened. There is no evidence of stenosis. There is trace regurgitation. Tricuspid valve: The valve is structurally normal. There is no evidence of stenosis. There is moderate regurgitation. Pulmonic valve: Not well visualized. There is trace regurgitation. Aorta: Ascending aorta: The ascending aorta is not dilated. Aortic arch: The aortic arch is not well seen. It is not dilated. The aortic root appears normal. Pericardium: There is no pericardial effusion. Pulmonary arteries: The main pulmonary artery is normal-sized. Systolic pressure is moderately increased, estimated to be 49 mm Hg. Systemic veins: Inferior vena cava: The vessel is normal in size. There is (< 50%) respiratory change in the IVC dimension. Measurements Left ventricle Value Ref Aortic valve Value Ref MARCO ANTONIO, LAX 3.8 cm 3.8 - Peak v, S 1.02 m/sec ----- 5.2 VTI, S 18.4 cm ----- ESD, LAX 3.1 cm 2.2 - Mean grad, S 2.4 mm Hg ----- 3.5 Peak grad, S 4.2 mm Hg ----- FS, LAX (L) 19 % 27 - 45 LVOT/AV, VTI ratio 0.65 ----- PW, ED, LAX (H) 1.0 cm 0.6 - 0.9 Mitral valve Value Ref PW, ED (H) 1.0 cm 0.6 - Peak E 0.96 m/sec ----- 0.9 Decel time 148 ms ----- IVS/PW, ED 1.08 -------- Peak grad, D 3.7 mm Hg ----- E', lat pennie, TDI (L) 9.4 cm/sec >=10.0 MR peak v 4.52 m/sec -- --- E/e', lat pennie, TDI 12 -------- ERO, PISA 0.23 cm^2 ----- E', med pennie, TDI 8.0 cm/sec >=7.0 E/e', med pennie, TDI 12 -------- Pulmonic valve Value Ref E', avg, TDI 8.7 cm/sec -------- Peak v, S 0.77 m/sec ----- E/e', avg, TDI 11 <=14 Peak grad, S 2.4 mm Hg -- --- LVOT Value Ref Tricuspid valve Value Ref Peak caridad, S 0.77 m/sec -------- TR peak v (H) 3.2 m/sec <=2.8 VTI, S 11.9 cm -------- Peak grad, S 2 mm Hg -------- Aortic root Value Ref Mean grad, S 1 mm Hg -------- Root diam 2.7 cm <3.8 Ventricular septum Value Ref Ascending aorta Value Ref IVS, ED (H) 1.0 cm 0.6 - AAo AP diam, S 3.0 cm ----- 0.9 AAo AP diam/bsa, S 1.9 cm/m^2 ----- Right ventricle Value Ref Aortic arch Value Ref MARCO ANTONIO, LAX 2.6 cm -------- Arch diam 2.6 cm ----- MARCO ANTONIO minor ax, A4C 3.3 cm 1.9 - mid 3.5 Decending aorta Value Ref Pressure, S 49 mm Hg -------- Lacy peak caridad 0.45 m/sec ----- Left atrium Value Ref Pulmonary artery Value Ref SI dim ES, LAX 4.6 cm -------- Pressure, S 46.6 mm Hg ----- ML dim, A4C 5.5 cm -------- SI dim, A4C 6.1 cm -------- Inferior vena cava Value Ref Vol, ES, 2-p 119 ml -------- Diam 1.8 cm ----- Vol/bsa, ES, 2-p (H) 76 ml/m^2 16 - 34 Right atrium Value Ref SI dim, ES 5.0 cm 3.4 - 5.3 ML dim, ES, A4C 3.8 cm 2.6 - 4.4 SI dim, ES, A4C 5.0 cm 3.4 - 5.3 SI dim/bsa, ES, A4C (H) 3.2 cm/m^2 1.9 - 3.1 Estimated RAP 8 mm Hg -------- Legend: (L) and (H) aracelis values outside specified reference range. Prepared and electronically signed by Hortencia Coronel MD 03/18/2019 10:12
[2019-03-18] MEDS ORDERED: Digoxin IV* 0.5 MG/2 ML AMP (0.25 MG/ML) IV SLOW PU ONE ×3 (10:30→23:53)
--- NOTE | 2019-03-18 12:50 | PN ---
Subjective Date of Service: 03/18/19 Interval History: Patient is feeling SOB and had CP this AM consistent with previous episode prior to admission and that occurred with probing of the chest during echocardiogram. Patient continues to have palpitation sensation. Patient denies lightheadedness. Patient denies dysuria, abdominal pain, diarrhea, F/C. Patient has persistent poor appetite. Family History: Unchanged from Admission Social History: Unchanged from Admission Past Medical History: Unchanged from Admission Objective Active Medications: Acetaminophen (Tylenol Tab*) 650 mg PO Q4H PRN PRN Reason: PAIN Last Admin: 03/18/19 10:11 Dose: 650 mg Aspirin (Aspirin 81 Mg Chew Tab*) 81 mg PO DAILY [facility] Last Admin: 03/18/19 10:12 Dose: 81 mg Atorvastatin Calcium (Lipitor*) 10 mg PO DAILY [facility] Last Admin: 03/18/19 10:11 Dose: 10 mg Calcium/Vitamin D (Oscal D Tab 250/125*) 2 tab PO DAILY [facility] Last Admin: 03/18/19 10:11 Dose: 2 tab Cyanocobalamin (Vitamin B12 Tab*) 1,000 mcg PO QAM [facility] Last Admin: 03/18/19 10:11 Dose: 1,000 mcg Divalproex Sodium (Depakote Dr Tab(*)) 500 mg PO BID [facility] Last Admin: 03/18/19 10:11 Dose: 500 mg Thiamine HCl 500 mg/ Sodium (Chloride) 255 mls @ 255 mls/hr IV TID [facility]; Protocol Last Admin: 03/18/19 10:11 Dose: 255 mls/hr Lactobacillus Rhamnosus (Lactobacillus Acidophilus*) 1 tab PO QAM [facility] Last Admin: 03/18/19 10:12 Dose: 1 tab Magnesium Chloride (Slow Mag Ec Tab*) 64 mg PO QAM [facility] Last Admin: 03/18/19 10:11 Dose: 64 mg Metoprolol Succinate (Toprol Xl Tab*) 50 mg PO BID [facility] Last Admin: 03/18/19 10:11 Dose: 50 mg Mirtazapine (Remeron Tab*) 15 mg PO BEDTIME [facility] Last Admin: 03/18/19 00:16 Dose: Not Given Multivitamins/Minerals (Theragran/Minerals Tab*) 1 tab PO QAM [facility] Last Admin: 03/18/19 10:12 Dose: 1 tab Ondansetron HCl (Zofran Inj*) 4 mg IV Q6H PRN PRN Reason: NAUSEA Rivaroxaban (Xarelto(*)) 20 mg PO DAILY [facility] Last Admin: 03/18/19 10:12 Dose: 20 mg Vital Signs - 8 hr 03/18/19 03/18/19 03/18/19 04:46 05:57 07:15 Temperature 96.7 F Pulse Rate 102 Respiratory 24 Rate Blood Pressure 87/58 102/66 (mmHg) O2 Sat by Pulse Oximetry 03/18/19 03/18/19 03/18/19 09:31 10:11 10:48 Temperature Pulse Rate 146 Respiratory Rate Blood Pressure 116/87 112/64 (mmHg) O2 Sat by Pulse Oximetry 03/18/19 11:47 Temperature 96.7 F Pulse Rate 93 Respiratory 20 Rate Blood Pressure 116/67 (mmHg) O2 Sat by Pulse 95 Oximetry Oxygen Devices in Use Now: Nasal Cannula Appearance: Patient is a 68yo female who appears stated age and is sitting in the bed in [facility]. Eyes: No Scleral Icterus, PERRLA Ears/Nose/Mouth/Throat: NL Teeth, Lips, Gums, Clear Oropharnyx, Mucous Membranes Moist Neck: NL Appearance and Movements; NL JVP, Trachea Midline Respiratory: Symmetrical Chest Expansion and Respiratory Effort, - - Rales in B/ L Middle lobes, Diminished in B/L Lower lobes. Cardiovascular: NL Sounds; No Murmurs; No JVD, - - 1+ B/L LE edema. Irregularly irregular tachycardic rhythm. Abdominal: NL Sounds; No Tenderness; No Distention, No Hepatosplenomegaly Lymphatic: No Cervical Adenopathy Extremities: No Clubbing, Cyanosis Skin: No Rash or Ulcers, No Nodules or Sclerosis Neurological: Alert and Oriented x 3, NL Sensation, NL Muscle Strength and Tone , - - CN II-XII intact. Somewhat forgetful. Result Diagrams: 03/18/19 05:34 03/18/19 05:34 Microbiology and Other Data: Microbiology 03/18/19 11:16 Stool Occult Blood ([facility]) - Final Stool 03/17/19 21:00 Nasal Screen MRSA (PCR) - Final Nasal Mrsa Not Detected Assess/Plan/Problems-Billing Assessment: Patient is a 68yo female with a PMH for CAD, PAF, Meningioma S/P Resection, seizures, who is admitted for afib with RVR and new diagnosis of HF. - Patient Problems (1) PAF (paroxysmal atrial fibrillation) Current Visit: No Status: Acute Code(s): I48.0 - PAROXYSMAL ATRIAL FIBRILLATION SNOMED Code(s): 617458261 Comment: - In RVR on Admission - Has been on Xarelto - Hypotensive on Diltiazem drip overnight - Decrease Metoprolol to 50mg PO BID. - Digoxin load ongoing with good results. - If unable to get durable Rate control, will consult cardiology for cardioversion. (2) Meningioma Current Visit: Yes Status: Acute Code(s): D32.9 - BENIGN NEOPLASM OF MENINGES, UNSPECIFIED SNOMED Code(s): 299393388 Comment: - S/P Resection and radiation - With alterations in taste and smell to which she attributes her poor oral intake. (3) Heart failure Current Visit: Yes Status: Acute Code(s): I50.9 - HEART FAILURE, UNSPECIFIED SNOMED Code(s): 43182420 Comment: - Unknown EF, Echo pending - History CAD, negative stress in 05/2017 - Diuretics when BP will tolerate. - Likely exacerbated by Afib with RVR (4) Alcohol abuse Current Visit: No Status: Acute Code(s): F10.10 - ALCOHOL ABUSE, UNCOMPLICATED SNOMED Code(s): 75461992 Comment: - Stopped drinking 8 days ago - Likely cause of Hypomagnesemia and macrocytosis - Increased forgetfulness and ? Confabulation since quit alcohol - Supplement thiamine aggressively. (5) Anemia Current Visit: No Status: Acute Code(s): D64.9 - ANEMIA, UNSPECIFIED SNOMED Code(s): 058446276 Comment: - Chronic, H&H at baseline - Macrocytic, but B12, TSH and folate normal - Iron studies consistent with anemia of chronic inflammation - Supplement Iron IV when infection R/O by urinalysis (6) CAD (coronary artery disease) Current Visit: No Status: Acute Code(s): I25.10 - ATHSCL HEART DISEASE OF [place] CORONARY ARTERY W/O ANG PCTRS SNOMED Code(s): 91010537 Comment: - Continue metoprolol, aspirin, atorvastatin - Stop Zetia due to chronic diarrhea and excellent LDL - Elevated Trop, likely due to demand - Negative Stress in 2018 - On Xarelto - May need repeat ischemic eval in close F/U or inpatient. - (7) HTN (hypertension) Current Visit: No Status: Acute Code(s): I10 - ESSENTIAL (PRIMARY) HYPERTENSION SNOMED Code(s): 55244736 Comment: - Hypotensive due to Afib treatment. - Continue metoprolol - Judicious fluids due to HF (8) Hypomagnesemia Current Visit: No Status: Acute Code(s): E83.42 - HYPOMAGNESEMIA SNOMED Code(s): 598278796 Comment: - Supplement IV - Likely combination of alcoholism, PPI, Diarrhea - Continue Mag supplementation (Plus Protein at home) - Recheck Daily. (9) Seizure disorder Current Visit: No Status: Acute Code(s): G40.909 - EPILEPSY, UNSP, NOT INTRACTABLE, WITHOUT STATUS EPILEPTICUS SNOMED Code(s): 070060248 Comment: - Continue Depakote - Level low (10) DVT prophylaxis Current Visit: No Status: Acute Code(s): Z29.9 - ENCOUNTER FOR PROPHYLACTIC MEASURES, UNSPECIFIED SNOMED Code(s): 119624513 Comment: - Xarelto Status and Disposition: Inpatient for management of HF and Afib. Humza CAO at D/C.
--- NOTE | 2019-03-18 15:19 | PN ---
Hospitalist Progress Note Date of Service: 03/18/19 Patient having pauses up to 2 seconds while sleeping. Subsequent digoxin doses held. Check level in AM and decide on oral dosing ongoing. Metoprolol decreased again to 25mg BID. Echo shows decreased EF at 30-35% with focal wall motion abnormalities. Will plan to repeat ischemic eval inpatient if possible.
[2019-03-18] MEDS ORDERED: NS 0.9% 250 ML* 250 ML ONE (22:27)
[2019-03-18] MEDS: Metoprolol Succinate XL TAB* 25 MG PO SCH (22:31)
[2019-03-18 22:58] LABS: Urine Appearance Cloudy; Urine Bilirubin Negative (Negative); Urine Blood Negative (Negative); Urine Color Amber; Urine Glucose Negative (Negative); Urine Ketones Trace (Negative); Urine Nitrite Negative (Negative); Urine Protein Negative (Negative); Urine Specific Gravity 1.026 (1.010-1.030); Urine Urobilinogen Negative (Negative)
[2019-03-18 23:10] LABS: Troponin I 0.59 ng/mL (<0.03)
[2019-03-18 23:17] LABS: Urine Bacteria 1+ (Absent); Urine Red Blood Cell 2+(6-10/hpf) (Absent); Urine Squamous Epithelial Cell Present (Absent); Urine White Blood Cell 3+(>20/hpf) (Absent)
[2019-03-18] MEDS ORDERED: Morphine 4 MG/ML VIAL (1 ml) 4 MG/ML VIAL IV PRN (23:53)
[2019-03-18] MEDS ORDERED: Morphine INJ* 2 MG/ML 1 ML SYRINGE (TWO MG - NEW SYRINGE VERSION) ONE (23:57)
[2019-03-19] MEDS: Digoxin IV* 0.5 MG/2 ML AMP (0.25 MG/ML) IV SLOW PU SCH ×2 (02:01→08:37)
[2019-03-19 04:40] LABS: Troponin I 0.44 ng/mL (<0.03)
--- NOTE | 2019-03-19 05:39 | PN ---
Resident Interval ProgressNote Date of Service: 03/19/19 Patient had 10/10 sternal chest pain at 2200, HR 110s, O2 sat dropped to 85% on 4L, changed to oxymask. Her pain subsided after 20min EKG: worsening st depression and twave inversion V3-V5 trop:0.59-> uptrending from last one. I was called to see patient at 2350 when she had second episode of 10/10 chest pain. Pt is in apparent distress with increasing breathing effort. Tele: AF with RVR, rate at 120s-130s Vital: sBP 120, reviewed BP trend mostly at 100s Noted patient had a 2s pause during daytime thus digoxin was held subsequently A: 1. chest pain with elevated trop - likely demand ischemia with rate uncontrolled, history of CAD s/p stents - O2 - morphine 2mg dose, watch RR and BP closely - nitroglycerin prn if bp tolerates - on aspirin, atorvastatin 10mg currently 2. Afib with RVR leading to decompensated heart failure - rate was not controlled with labile BP and decompensated CHF - With her labile BP and HFrEF (30%), rate control options are limited. I would still go for digoxin in this case considering her labile BP and poor EF. I understand the concern of pause earlier in the day, she definitely needs close monitoring and level check. Although in patients with existing cardiac condition , digoxin is more likely inducing tachyarrythmia than bradyarrythmia or pause. - At the meantime, increasing metoprolol gradually if BP tolerates - Cardiology consult will be helpful in this case for further management
[2019-03-19] MEDS: Metoprolol Succinate XL TAB* 25 MG PO SCH ×2 (08:39→20:56)
[2019-03-19] MEDS: Cyanocobalamin TAB* 500 MCG PO SCH (08:39)
[2019-03-19] MEDS: Magnesium Chloride EC TAB* 64 MG PO SCH (08:39)
[2019-03-19] MEDS: Aspirin 81 mg CHEW TAB* 81 MG TAB.CHEW PO SCH (08:40)
[2019-03-19] MEDS: Calcium/Vitamin D TAB 250/125* TAB PO SCH (08:40)
[2019-03-19] MEDS: Rivaroxaban TAB(*) 20 MG TAB PO SCH (08:40)
[2019-03-19] MEDS: Atorvastatin* 10 MG TAB PO SCH (08:40)
[2019-03-19] MEDS: Divalproex DR TAB(*) 500 MG PO SCH ×2 (08:40→20:53)
[2019-03-19] MEDS: Multivitamins/Minerals TAB PO SCH (08:41)
[2019-03-19] MEDS: Lactobacillus Acidophilus* 1 TAB PO SCH (08:41)
[2019-03-19 09:23] LABS: ABS Lymphocytes 0.8 10^3/ul (1.0-4.8); ABS Monocytes 0.8 10^3/ul (0-0.8); ABS Neutrophils 5.7 10^3/ul (1.5-7.7); Eosinophil % 0.6 %; Hematocrit 26 % (35-47); Hemoglobin 8.8 g/dL (12.0-16.0); Lymphocyte % 11.2 %; Mean Corpuscular HGB Conc 35 g/dL (31-36); Mean Corpuscular Hemoglobin 40 pg (27-31); Mean Corpuscular Volume 117 fL (80-97); Platelet Count 300 10^3/uL (150-450); Red Blood Count 2.18 10^6 /uL (3.70-4.87); Red Cell Distribution Width 14 % (10-15); White Blood Count 7.4 10^3/uL (3.5-10.8)
[2019-03-19 09:36] LABS: Calcium 8.6 mg/dL (8.6-10.3); EGFR African American 66.5 (>60); Magnesium 1.6 mg/dL (1.9-2.7)
[2019-03-19] MEDS: Thiamine IV 500 MG in NS 0.9% 250 ML (Wernicke-Korsakoff) IV SCH ×3 (10:23→20:56)
[2019-03-19 10:49] LABS: Digoxin 6.6 ng/ml (0.8-2.0)
--- NOTE | 2019-03-19 10:50 | PN ---
Subjective Date of Service: 03/19/19 Interval History: Episode of chest pain overnight lasted 5 minutes described as burning This AM feels well, oxygen demand is up requiring 4L facemask but is not dyspneic No other complaints Family History: Unchanged from Admission Social History: Unchanged from Admission Past Medical History: Unchanged from Admission Objective Active Medications: Acetaminophen (Tylenol Tab*) 650 mg PO Q4H PRN PRN Reason: PAIN Last Admin: 03/18/19 22:32 Dose: 650 mg Aspirin (Aspirin 81 Mg Chew Tab*) 81 mg PO DAILY [facility] Last Admin: 03/19/19 08:40 Dose: 81 mg Atorvastatin Calcium (Lipitor*) 10 mg PO DAILY [facility] Last Admin: 03/19/19 08:40 Dose: 10 mg Calcium/Vitamin D (Oscal D Tab 250/125*) 2 tab PO DAILY [facility] Last Admin: 03/19/19 08:40 Dose: 2 tab Cyanocobalamin (Vitamin B12 Tab*) 1,000 mcg PO QAM [facility] Last Admin: 03/19/19 08:39 Dose: 1,000 mcg Digoxin (Lanoxin Tab*) 0.125 mg PO 1700 [facility] Divalproex Sodium (Depakote Dr Tab(*)) 500 mg PO BID [facility] Last Admin: 03/19/19 08:40 Dose: 500 mg Thiamine HCl 500 mg/ Sodium (Chloride) 255 mls @ 255 mls/hr IV TID [facility]; Protocol Last Admin: 03/19/19 10:23 Dose: 255 mls/hr Lactobacillus Rhamnosus (Lactobacillus Acidophilus*) 1 tab PO QAM [facility] Last Admin: 03/19/19 08:41 Dose: 1 tab Magnesium Chloride (Slow Mag Ec Tab*) 64 mg PO QAM [facility] Last Admin: 03/19/19 08:39 Dose: 64 mg Metoprolol Succinate (Toprol Xl Tab*) 25 mg PO BID [facility] Last Admin: 03/19/19 08:39 Dose: 25 mg Mirtazapine (Remeron Tab*) 15 mg PO BEDTIME [facility] Last Admin: 03/18/19 22:31 Dose: 15 mg Morphine Sulfate (Morphine 4 Mg/Ml Vial (1 Ml)) 2 mg IV Q4H PRN PRN Reason: PAIN - SEVERE Last Admin: 03/19/19 00:01 Dose: 2 mg Multivitamins/Minerals (Theragran/Minerals Tab*) 1 tab PO QAM [facility] Last Admin: 03/19/19 08:41 Dose: 1 tab Ondansetron HCl (Zofran Inj*) 4 mg IV Q6H PRN PRN Reason: NAUSEA Rivaroxaban (Xarelto(*)) 20 mg PO DAILY [facility] Last Admin: 03/19/19 08:40 Dose: 20 mg Vital Signs - 8 hr 03/19/19 03/19/19 03/19/19 03:15 04:58 05:58 Temperature 97.3 F Pulse Rate 69 Respiratory 18 Rate Blood Pressure 109/57 109/57 86/40 (mmHg) O2 Sat by Pulse 94 Oximetry 03/19/19 03/19/19 03/19/19 06:34 06:59 07:15 Temperature 98 F Pulse Rate 76 Respiratory 20 Rate Blood Pressure 83/48 98/96 108/49 (mmHg) O2 Sat by Pulse 85 Oximetry 03/19/19 03/19/19 03/19/19 07:20 07:27 08:37 Temperature Pulse Rate 92 Respiratory Rate Blood Pressure 108/49 (mmHg) O2 Sat by Pulse 93 Oximetry Oxygen Devices in Use Now: Simple Face Mask - 4L Appearance: lying flat, NAD Eyes: No Scleral Icterus, PERRLA Neck: NL Appearance and Movements; NL JVP Respiratory: Symmetrical Chest Expansion and Respiratory Effort, - - decreased breath sounds throughout, rales throughout greatest in bases Cardiovascular: - - IRIR, distant Abdominal: NL Sounds; No Tenderness; No Distention, No Hepatosplenomegaly Extremities: - - 1+ b/l LE edema Neurological: Alert and Oriented x 3, - - oriented Result Diagrams: 03/19/19 09:07 03/19/19 09:07 Microbiology and Other Data: Microbiology 03/18/19 11:16 Stool Occult Blood ([facility]) - Final Stool 03/17/19 21:00 Nasal Screen MRSA (PCR) - Final Nasal Mrsa Not Detected Assess/Plan/Problems-Billing Assessment: Patient is a 68 yo female with a PMH for CAD, pAF (declined AC in the past), Meningioma S/P Resection, seizures, who is admitted for afib with RVR and new diagnosis of HF. - Patient Problems (1) PAF (paroxysmal atrial fibrillation) Comment: - In RVR on Admission - xarelto - Dig level elevated. Hold digoxin. If arrythmia or change in clinical status will reverse - Metoprolol decreased to 25mg BID (2) Acute systolic heart failure Comment: newly decreased to 30-35% Ischemic v rate related although decline looks regional and has h/o CAD Last TTE at [facility] 2018 "EF is 60-65% Normal diastolic filling pattern Left atrial cavity is moderately dilated. Functionally benign heart valves." Repeat CXR today Plan diuresis after CXR if BP can tolerate (3) Meningioma Comment: - S/P Resection and radiation - With alterations in taste and smell to which she attributes her poor oral intake. (4) Alcohol abuse Comment: - Stopped drinking 8 days [employer] - Supplement thiamine (5) CAD (coronary artery disease) Comment: - Continue metoprolol, aspirin, atorvastatin - Stop Zetia due to chronic diarrhea and excellent LDL - newly decreased EF - Cardiology c/s - Negative Stress in 2018 - On Xarelto (6) Hypomagnesemia Comment: - Supplement IV - Likely combination of alcoholism, PPI, Diarrhea - seen by nephro for this issued, recommended mag supplimentation/protein and magnesium rich foods - Continue Mag supplementation (Plus Protein at home) - Recheck Daily. (7) Seizure disorder Comment: - Continue Depakote - Level low - c/s neuro to eval need for additional dosing (8) DVT prophylaxis Comment: - Xarelto Status and Disposition: Inpatient for management of HF and Afib. Humza CAO at D/C.
[2019-03-19] MEDS ORDERED: Furosemide IV* 10 MG/ML 2 ML VIAL (20 MG) IV SLOW PU ONE ×2 (16:16→18:08)
--- NOTE | 2019-03-19 16:58 | CONS ---
CC: Dr. Burnham; Dr. Edilberto Campbell; Dr. Coronel; Hospitalist Service * CARDIOLOGY CONSULTATION: DATE OF CONSULT: 03/19/19 PRIMARY PRODUCT SAFETY COORDINATOR: Dr. Edilberto Campbell. HISTORY OF PRESENT ILLNESS: I was asked by hospitalist service to see this pleasant 68-year-old female patient who was hospitalized on 03/17/19 with progressive symptoms of chest pain and shortness of breath. I was asked to see the patient because of newly decreased left ventricular systolic function significantly with multiple wall motion abnormalities and the patient ruled in for non-ST- elevation myocardial infarction. The patient does have known history of coronary artery disease. As per Dr. Campbell's notes, she had cardiac cath, angioplasty, and stenting on 04/03/03 to the RCA. Repeat cardiac cath by Dr. Campbell in 2005 showed patent stent with minimal CAD. A Myoview nuclear stress test done on 05/28/17 was reported to be normal and no evidence of ischemia or infarction. An echocardiogram that was done on 06/05/17 showed the patient to have normal left ventricular systolic function with EF 60% to 65% and benign heart valves. The patient had known history of SVT. She had history of radiofrequency ablation done by Dr. Garcia and that was actually in August 2008. She had history now of chronic or permanent atrial flutter and fibrillation. She had history of hypomagnesemia as well. Apparently, she presented with progressive symptoms of chest pain, shortness of breath. She ruled in for non-ST- elevation myocardial infarction and peaked troponin that came in at 0.59 on 03/18/19 at 2225. She had CRP of 96. She is currently chest pain free. She had significant, what appears to be , EKG abnormalities and the last EKG from actually 03/18/[address] depression, T-wave inversion in V4, V5, and V6. I do not see a followup EKG since then. She is in AFib actually. She had shortness of breath. She continues to smoke. She does have COPD. She gives no nausea, no vomiting, no fever, no chills, no skin rash, no tremors, no hematochezia, no abdominal pain, no syncope, no major swelling in the lower extremities. She had an echocardiogram that was done yesterday and reported to be significantly reduced left ventricular systolic function with an EF 30% to 35%, multiple regional wall motion abnormalities, moderate mitral insufficiency was reported. PAST MEDICAL HISTORY: As outlined above. She also had history of seizure disorder, coronary artery disease, SVT ablation, gastroesophageal reflux disease , systemic arterial hypertension, sleep apnea, peripheral vascular disease, anemia, and atrial flutter/fibrillation. PAST SURGICAL HISTORY: She does have history of craniotomy in 2007, large right frontal meningioma. She has history of hemorrhoidectomy, , ankle surgery, teeth extraction, hip replacement in 2010 on the left, hip replacement in 2011 on the right, and appendicectomy in 2016. MEDICATIONS: Her medications as an outpatient include: 1. Candesartan 4 mg daily. 2. Crestor 5 mg daily. 3. Xarelto 20 mg daily. 4. Aspirin 81 mg daily. 5. Metoprolol 100 mg twice a day. 6. Vitamin D3 daily. 7. Vitamin B complex once daily. 8. Slow-Mag 3 times a day. 9. Zetia 10 mg once a day. ALLERGIES: She is allergic to AZITHROMYCIN and OXYCODONE. FAMILY HISTORY: No family history of premature CAD. SOCIAL HISTORY: She is . She lives with her . She is retired. She is currently smoking every day, 1 pack per week. No significant alcohol. No significant drug abuse. PHYSICAL EXAM: On exam, she is on oxygen. She is awake, alert, and oriented. She had no symptoms of chest pain. She is very minimally tachypneic. Her vitals include blood pressure 123/59; pulse 78, irregularly irregular; temperature 98.6; respiratory rate 24. Head and Neck Exam: Normocephalic, atraumatic head. Ears, Nose, and Throat: Essentially benign. Neck is supple. JVP is not elevated. No carotid bruits. No masses in the neck are appreciated. Chest: Diminished air entry at the bases with some rhonchi. Heart: Irregularly irregular. S1, S2. No added sounds. No gallops. No rubs. There is a grade 3/6 systolic murmur in the apex. Abdomen: Benign, soft. Positive bowel sounds. Extremities: No edema, no cyanosis, no clubbing. Skin exam is normal. Psych: Normal affect and mood. MESSAGE CLERK: No focal deficits appreciated. DIAGNOSTIC STUDIES/LAB DATA: Her labs from today showed white blood cell 7.4, hemoglobin 8.8, hematocrit 26, and platelets 300. Sodium 133, potassium 5, chloride 105, BUN 26, creatinine is 1. Troponin peaked at 0.6. CRP 96. EKG as described. Echo as described. IMPRESSION: The patient is a 68-year-old female patient with: 1. Ruled in for [id number] myocardial infarction. 2. Known history of coronary artery disease with angioplasty and stenting of the right coronary artery in March 2003. 3. At least new, within a year, cardiomyopathy with an EF severely reduced 30% to 35% with multiple regional wall motion abnormalities very concerning for ischemic coronary artery disease. 4. Grossly abnormal EKG highly suggestive of ischemic coronary artery disease in the anterolateral territory probably involving left anterior descending disease. 5. Current tobacco consumption. 6. Chronic obstructive pulmonary disease. 7. Sleep apnea. 8. History of supraventricular tachycardia, status post ablation in 2008. 9. Peripheral vascular disease. 10. Chronic atrial fibrillation, rate controlled on Xarelto as an outpatient. 11. History of chronic hypomagnesemia. 12. Moderate mitral insufficiency probably related to her severe cardiomyopathy. PLAN: The patient definitely had already known history of CAD. I am very concerned about her cardiomyopathy, ischemic in nature, at the present time. I have discussed at length further evaluation and management by proceeding to have a left cardiac catheterization to evaluate this. She wants everything to be done and she is willing to proceed. I will subsequently discuss her sometime today with Dr. Allen from the interventional cardiology services. She is not overtly in congestive heart failure. She has no active angina at the present time. I agree with you continuing her aspirin, statin, beta- aimee treatment, digoxin, and I do recommend adding low-dose LORELEI inhibitors given her cardiomyopathy and following her BUN, creatinine, and potassium. I will discuss with Dr. Allen regarding Xarelto . Any further recommendations will be pending her clinical outcome. Her atrial fibrillation is well controlled. Lasix on a p.r.n. basis if needed. COPD management as per Pulmonary. I answered all her concerns and questions up to her satisfaction. We will follow up on EKG today. TIME SPENT: More than half of at least 60 to 65 plus minutes was in the education and counseling mode and answering all her concerns and questions. [id number]/[facility] #: [id number] [facility] CENTERMario Alberto
[2019-03-19] MEDS: Lisinopril TAB* 5 MG PO SCH (17:03)
[2019-03-19] MEDS: Mirtazapine TAB* 15 MG PO SCH (20:56)
[2019-03-20 05:43] LABS: ABS Lymphocytes 0.6 10^3/ul (1.0-4.8); ABS Neutrophils 6.7 10^3/ul (1.5-7.7); Eosinophil % 0.4 %; Hematocrit 25 % (35-47); Hemoglobin 8.5 g/dL (12.0-16.0); Lymphocyte % 7.2 %; Mean Corpuscular HGB Conc 34 g/dL (31-36); Mean Corpuscular Hemoglobin 39 pg (27-31); Mean Corpuscular Volume 117 fL (80-97); Mean Platelet Volume 7.9 fL (7.4-10.4); Nucleated Red Blood Cells % 0.1; Platelet Count 313 10^3/uL (150-450); Red Blood Count 2.18 10^6 /uL (3.70-4.87); Red Cell Distribution Width 14 % (10-15); White Blood Count 8.3 10^3/uL (3.5-10.8)
[2019-03-20 05:50] LABS: BUN/Creatinine Ratio 30.2 (8-20); Calcium 8.7 mg/dL (8.6-10.3); EGFR African American 79.2 (>60); EGFR Non-African American 65.4 (>60); Potassium 4.3 mmol/L (3.5-5.0)
[2019-03-20] MEDS: Acetaminophen TAB* 325 MG PO PRN (05:59)
[2019-03-20] MEDS ORDERED: Enoxaparin(*) 60 MG/0.6 ML SYR SUBCUT SCH ×2 (11:00→12:00)
[2019-03-20] MEDS: Thiamine IV 500 MG in NS 0.9% 250 ML (Wernicke-Korsakoff) IV SCH ×3 (11:37→21:13)
[2019-03-20] MEDS ORDERED: Furosemide IV* 10 MG/ML VIAL (40 MG) IV SLOW PU ONE (11:47)
[2019-03-20] MEDS: Aspirin 81 mg CHEW TAB* 81 MG TAB.CHEW PO SCH (12:32)
[2019-03-20] MEDS: Calcium/Vitamin D TAB 250/125* TAB PO SCH (12:32)
[2019-03-20] MEDS: Cyanocobalamin TAB* 500 MCG PO SCH (12:32)
[2019-03-20] MEDS: Atorvastatin* 10 MG TAB PO SCH (12:32)
[2019-03-20] MEDS: Digoxin TAB* 0.125 MG PO SCH ×2 (12:33→17:49)
[2019-03-20] MEDS: Divalproex DR TAB(*) 500 MG PO SCH ×2 (12:33→21:13)
[2019-03-20] MEDS: Lactobacillus Acidophilus* 1 TAB PO SCH (12:34)
[2019-03-20] MEDS: Lisinopril TAB* 5 MG PO SCH (12:34)
[2019-03-20] MEDS: Magnesium Chloride EC TAB* 64 MG PO SCH (12:34)
[2019-03-20] MEDS: Multivitamins/Minerals TAB PO SCH (12:35)
[2019-03-20] MEDS: Metoprolol Succinate XL TAB* 25 MG PO SCH ×2 (12:35→21:13)
[2019-03-20] MEDS: Enoxaparin(*) 80 MG/0.8 ML SYR SUBCUT SCH ×2 (12:56→23:43)
[2019-03-20 15:02] LABS: Urine Appearance Cloudy; Urine Bilirubin Negative (Negative); Urine Blood Negative (Negative); Urine Color Yellow; Urine Glucose Negative (Negative); Urine Ketones Trace (Negative); Urine Nitrite Negative (Negative); Urine Protein Negative (Negative); Urine Specific Gravity 1.015 (1.010-1.030); Urine Urobilinogen Negative (Negative)
--- NOTE | 2019-03-20 15:05 | PN ---
Subjective Date of Service: 03/20/19 Interval History: Oxygen titrated down some this AM but back up by noon More lethargic but denies SOB, remains on oxy face mask Oriented in AM but by 1300 increased delerium - reported to this author she was going to [facility] wedding in the hallway In AM no chest pain, N/V, LH Family History: Unchanged from Admission Social History: Unchanged from Admission Past Medical History: Unchanged from Admission Objective Active Medications: Acetaminophen (Tylenol Tab*) 650 mg PO Q4H PRN PRN Reason: PAIN Last Admin: 03/20/19 05:59 Dose: 650 mg Aspirin (Aspirin 81 Mg Chew Tab*) 81 mg PO DAILY [facility] Last Admin: 03/20/19 12:32 Dose: Not Given Atorvastatin Calcium (Lipitor*) 10 mg PO DAILY [facility] Last Admin: 03/20/19 12:32 Dose: Not Given Calcium/Vitamin D (Oscal D Tab 250/125*) 2 tab PO DAILY [facility] Last Admin: 03/20/19 12:32 Dose: Not Given Cyanocobalamin (Vitamin B12 Tab*) 1,000 mcg PO QAM [facility] Last Admin: 03/20/19 12:32 Dose: Not Given Digoxin (Lanoxin Tab*) 0.125 mg PO 1700 [facility] Last Admin: 03/20/19 12:33 Dose: Not Given Divalproex Sodium (Depakote Dr Tab(*)) 500 mg PO BID [facility] Last Admin: 03/20/19 12:33 Dose: Not Given Enoxaparin Sodium (Lovenox(*)) 65 mg SUBCUT Q12H [facility] Last Admin: 03/20/19 12:56 Dose: 65 mg Furosemide (Lasix Iv*) 20 mg IV SLOW PU ONCE ONE Stop: 03/20/19 21:01 Thiamine HCl 500 mg/ Sodium (Chloride) 255 mls @ 255 mls/hr IV TID [facility]; Protocol Last Admin: 03/20/19 13:49 Dose: 255 mls/hr Lactobacillus Rhamnosus (Lactobacillus Acidophilus*) 1 tab PO QAM [facility] Last Admin: 03/20/19 12:34 Dose: Not Given Lisinopril (Prinivil Tab*) 2.5 mg PO DAILY [facility] Last Admin: 03/20/19 12:34 Dose: Not Given Magnesium Chloride (Slow Mag Ec Tab*) 64 mg PO QAM [facility] Last Admin: 03/20/19 12:34 Dose: Not Given Metoprolol Succinate (Toprol Xl Tab*) 25 mg PO BID [facility] Last Admin: 03/20/19 12:35 Dose: Not Given Mirtazapine (Remeron Tab*) 15 mg PO BEDTIME [facility] Last Admin: 03/19/19 20:56 Dose: 15 mg Multivitamins/Minerals (Theragran/Minerals Tab*) 1 tab PO QAM [facility] Last Admin: 03/20/19 12:35 Dose: Not Given Ondansetron HCl (Zofran Inj*) 4 mg IV Q6H PRN PRN Reason: NAUSEA Vital Signs - 8 hr 03/20/19 03/20/19 08:00 11:12 Temperature 97.6 F 96.7 F Pulse Rate 57 69 Respiratory 16 20 Rate Blood Pressure 112/62 127/72 (mmHg) O2 Sat by Pulse 95 98 Oximetry Oxygen Devices in Use Now: OxyMask - 5L Appearance: lying flat, NAD Eyes: No Scleral Icterus, PERRLA Ears/Nose/Mouth/Throat: Mucous Membranes Moist Neck: NL Appearance and Movements; NL JVP Respiratory: Symmetrical Chest Expansion and Respiratory Effort, - - decreased BS throughout, fine rales throughout Cardiovascular: - - irir Abdominal: NL Sounds; No Tenderness; No Distention, No Hepatosplenomegaly Lymphatic: No Cervical Adenopathy Extremities: No Edema Skin: No Rash or Ulcers Neurological: Alert and Oriented x 3, - - cn 2-12 intact (by afternoon by no longer AOx3 and only oriented to self) Result Diagrams: 03/20/19 05:06 03/20/19 05:06 Microbiology and Other Data: Microbiology 03/18/19 11:16 Stool Occult Blood ([facility]) - Final Stool 03/17/19 21:00 Nasal Screen MRSA (PCR) - Final Nasal Mrsa Not Detected Assess/Plan/Problems-Billing Assessment: Patient is a 68 yo female with a PMH for CAD, pAF (declined AC in the past), meningioma s/p resection, seizures, who is admitted for afib with RVR and new diagnosis of systolic CHF. - Patient Problems (1) PAF (paroxysmal atrial fibrillation) Comment: - In RVR on Admission - xarelto changed to lovenox pending potential cath on Sunday - Dig level elevated. Holding digoxin. - Repeat dig level ordered for 1/3 (Sunday) - Metoprolol decreased to 25mg BID (2) Acute systolic heart failure Comment: newly decreased to 30-35% Ischemic v rate related although decline looks regional and has h/o CAD Last TTE at [facility] 2018 "EF is 60-65% Normal diastolic filling pattern Left atrial cavity is moderately dilated. Functionally benign heart valves." CXR and CT with diffuse pulm edema. I do not appreciate infection and she has no fever or increased WBC to support. Diuresis starting 03/19 03/20 - total of 60mg IV lasix (3) Meningioma Comment: - S/P Resection and radiation - With alterations in taste and smell to which she attributes her poor oral intake. (4) Alcohol abuse Comment: - Stopped drinking 8 days [employer] - Supplement thiamine (5) CAD (coronary artery disease) Comment: - Continue metoprolol, aspirin, atorvastatin - Stop Zetia due to chronic diarrhea and excellent LDL - newly decreased EF - plan for cath Sunday after CHF improved - Negative Stress in 2018 - xarelto transitioned to full dose lovenox (6) Hypomagnesemia Comment: - Supplement IV - Likely combination of alcoholism, PPI, Diarrhea - seen by nephro for this issued, recommended mag supplimentation/protein and magnesium rich foods - Continue Mag supplementation (Plus Protein at home) - Recheck Daily. (7) Seizure disorder Comment: - Continue Depakote - Level low - d/w neurology. Will not treat low level if no additional seizures (8) DVT prophylaxis Comment: - lovenox BID Status and Disposition: Inpatient - CHF, planned [facility] Sunday
[2019-03-20] MEDS ORDERED: Furosemide IV* 10 MG/ML 2 ML VIAL (20 MG) IV SLOW PU ONE (21:00)
[2019-03-20] MEDS: Mirtazapine TAB* 15 MG PO SCH (21:13)
[2019-03-21 05:17] LABS: ABS Eosinophils 0.1 10^3/ul (0-0.6); ABS Lymphocytes 0.9 10^3/ul (1.0-4.8); ABS Monocytes 0.9 10^3/ul (0-0.8); ABS Neutrophils 6.1 10^3/ul (1.5-7.7); Eosinophil % 0.7 %; Hematocrit 23 % (35-47); Hemoglobin 7.9 g/dL (12.0-16.0); Lymphocyte % 10.8 %; Mean Corpuscular HGB Conc 34 g/dL (31-36); Mean Corpuscular Hemoglobin 40 pg (27-31); Mean Corpuscular Volume 115 fL (80-97); Mean Platelet Volume 8.1 fL (7.4-10.4); Nucleated Red Blood Cells % 0.2; Platelet Count 316 10^3/uL (150-450); Red Blood Count 1.99 10^6 /uL (3.70-4.87); Red Cell Distribution Width 14 % (10-15)
[2019-03-21 05:24] LABS: BUN/Creatinine Ratio 33.8 (8-20); Calcium 8.2 mg/dL (8.6-10.3); EGFR African American 94.2 (>60); EGFR Non-African American 77.8 (>60); Magnesium 1.1 mg/dL (1.9-2.7); Potassium 3.8 mmol/L (3.5-5.0)
[2019-03-21 05:37] LABS: Digoxin 2.1 ng/ml (0.8-2.0)
[2019-03-21 06:24] LABS: Influenza A Molecular NEGATIVE (Negative); Influenza B Molecular NEGATIVE (Negative)
[2019-03-21] MEDS: Lisinopril TAB* 5 MG PO SCH (09:49)
[2019-03-21] MEDS ORDERED: Magnesium Sulfate IV* 3 GM in NS 0.9% 100 ML* 100 ML IVPB ONE (09:58)
[2019-03-21] MEDS ORDERED: Furosemide IV* 10 MG/ML VIAL (40 MG) IV SCH (10:00)
--- NOTE | 2019-03-21 10:04 | PN ---
Subjective Date of Service: 03/21/19 Interval History: No acute events overnight. Remains on supplemental O2, furosemide IV, and thiamine IV. Denies specific symptoms but expresses frustration at so man different medical providers and so many different medications. Objective Active Medications: Acetaminophen (Tylenol Tab*) 650 mg PO Q4H PRN PRN Reason: PAIN Last Admin: 03/20/19 05:59 Dose: 650 mg Aspirin (Aspirin 81 Mg Chew Tab*) 81 mg PO DAILY [facility] Last Admin: 03/20/19 12:32 Dose: Not Given Atorvastatin Calcium (Lipitor*) 10 mg PO DAILY [facility] Last Admin: 03/20/19 12:32 Dose: Not Given Calcium/Vitamin D (Oscal D Tab 250/125*) 2 tab PO DAILY [facility] Last Admin: 03/20/19 12:32 Dose: Not Given Cyanocobalamin (Vitamin B12 Tab*) 1,000 mcg PO QAM [facility] Last Admin: 03/20/19 12:32 Dose: Not Given Digoxin (Lanoxin Tab*) 0.125 mg PO 1700 [facility] Last Admin: 03/20/19 17:49 Dose: 0.125 mg Divalproex Sodium (Depakote Dr Tab(*)) 500 mg PO BID [facility] Last Admin: 03/20/19 21:13 Dose: 500 mg Enoxaparin Sodium (Lovenox(*)) 65 mg SUBCUT Q12H [facility] Last Admin: 03/20/19 23:43 Dose: 65 mg Folic Acid (Folvite Tab*) 1 mg PO DAILY [facility] Furosemide (Lasix Iv*) 40 mg IV DAILY [facility] Thiamine HCl 500 mg/ Sodium (Chloride) 255 mls @ 255 mls/hr IV TID [facility]; Protocol Last Admin: 03/20/19 21:13 Dose: 255 mls/hr Magnesium Sulfate 3 gm/ Sodium (Chloride) 106 mls @ 53 mls/hr IVPB ONCE ONE Stop: 03/21/19 11:57 Lactobacillus Rhamnosus (Lactobacillus Acidophilus*) 1 tab PO QAM [facility] Last Admin: 03/20/19 12:34 Dose: Not Given Lisinopril (Prinivil Tab*) 2.5 mg PO DAILY [facility] Last Admin: 03/20/19 12:34 Dose: Not Given Magnesium Chloride (Slow Mag Ec Tab*) 64 mg PO QAM [facility] Last Admin: 01/02/20 12:34 Dose: Not Given Metoprolol Succinate (Toprol Xl Tab*) 25 mg PO BID [facility] Last Admin: 03/20/19 21:13 Dose: 25 mg Mirtazapine (Remeron Tab*) 15 mg PO BEDTIME [facility] Last Admin: 03/20/19 21:13 Dose: 15 mg Multivitamins/Minerals (Theragran/Minerals Tab*) 1 tab PO QAM [facility] Last Admin: 03/20/19 12:35 Dose: Not Given Ondansetron HCl (Zofran Inj*) 4 mg IV Q6H PRN PRN Reason: NAUSEA Potassium Chloride (Klor Con Er Tab*) 20 meq PO ONCE ONE Stop: 03/22/19 09:01 Vital Signs - 8 hr 03/21/19 03/21/19 03:00 03:02 Temperature 97.2 F Pulse Rate 70 Respiratory 18 Rate Blood Pressure 123/70 123/70 (mmHg) O2 Sat by Pulse 100 Oximetry Oxygen Devices in Use Now: OxyMask Appearance: alert, NAD, lying in bed, appears comfortable Eyes: No Scleral Icterus Ears/Nose/Mouth/Throat: Clear Oropharnyx, Mucous Membranes Moist Neck: NL Appearance and Movements; NL JVP, Trachea Midline Respiratory: - - clear anteriorly Cardiovascular: - - irreg irreg, no mgr Abdominal: No Hepatosplenomegaly, - - mild ttp over epigastrum Extremities: No Edema Skin: No Rash or Ulcers Neurological: - - AOx3 (although 2 days off with the date) Result Diagrams: 03/21/19 13:19 03/21/19 13:19 Microbiology and Other Data: Microbiology 03/18/19 11:16 Stool Occult Blood ([facility]) - Final Stool 03/17/19 21:00 Nasal Screen MRSA (PCR) - Final Nasal Mrsa Not Detected Assess/Plan/Problems-Billing Assessment: 68W with CAD, pAF (declined AC in the past), meningioma s/p resection, seizures , who is admitted for afib with RVR and new diagnosis of [id number]%. Course with altered mental status and anemia, both likely related to alcohol use. - Patient Problems (1) Acute systolic heart failure Comment: Newly decreased to 30-35%. Ischemic vs rate related, although decline looks regional and has h/o CAD. CXR and CT with diffuse pulm edema. No signs of infx. - LHC pending on Sunday (03/24) - cont furosemide 40mg IV daily - cont lisinopril 2.5mg daily and monitor BP - cont metoprolol suc 50mg daily and monitor HR - monitor daily weights, Is & Os, renal function, electrolytes (2) PAF (paroxysmal atrial fibrillation) Comment: In RVR on Admission - xarelto changed to lovenox pending potential cath on Friday 03/24 - cont digoxin 0.125mcg daily - cont metoprolol succinate 50mg daily (3) Alcohol abuse Comment: Has not requiring benzos for withdrawal. Stopped drinking on Mar 09, prior to last admission - supplementing thiamine in case of Wernicke's, (03/18 - ); so far not significant improvement in mental status - cont folate, monitor for signs of withdrawal (4) Anemia Comment: Newly decreased, with labs concerning for ACI and Fe-deficiency. FOBT negative. H/o significant alcohol use contributin, and macrocytic. No e/o hemolysis. - supplement iron IV (03/21 - 03/25) (5) CAD (coronary artery disease) Comment: Negative stress in 2018. - continue aspirin, atorvastatin - stop Zetia due to chronic diarrhea and excellent LDL - plan for cath Sunday, as pt with newly reduced EF (6) Hypomagnesemia Comment: Likely due to prolonged PPI use, alcohol use, and diarrhea. - supplement IV - seen by nephro for this issued, recommended mag supplimentation/protein and magnesium rich foods - restart oral Mag supplementation (Plus Protein at home) on discharge (7) GERD (gastroesophageal reflux disease) Comment: PPI contraindicated given significant hypomag. - switch to H2 aimee prn (8) Meningioma Comment: S/P Resection and radiation. With alterations in taste and smell to which she attributes her poor oral intake. (9) Seizure disorder Comment: - Continue Depakote - Level low, d/w neurology. Will not treat low level if no additional seizures (10) DVT prophylaxis Comment: - therapeutic lovenox for afib Status and Disposition: Inpatient - CHF, planned [facility] Sunday
[2019-03-21] MEDS ORDERED: Diazepam TAB(*) 5 MG PO PRN (10:09)
[2019-03-21] MEDS ORDERED: diPHENhydraMINE PO* 25 MG PO PRN (10:09)
[2019-03-21] MEDS ORDERED: Potassium Chloride* LIQUID 20 MEQ/15 ML UDC PO ONE (10:13)
[2019-03-21] MEDS ORDERED: NS 0.9% 1000 ML** 1,000 ML IV SCH (10:15)
[2019-03-21] MEDS: Thiamine IV 500 MG in NS 0.9% 250 ML (Wernicke-Korsakoff) IV SCH ×3 (10:28→22:21)
[2019-03-21] MEDS: Atorvastatin* 10 MG TAB PO SCH (10:39)
[2019-03-21] MEDS: Aspirin 81 mg CHEW TAB* 81 MG TAB.CHEW PO SCH (10:39)
[2019-03-21] MEDS: Divalproex DR TAB(*) 500 MG PO SCH ×2 (10:39→22:08)
[2019-03-21] MEDS: Calcium/Vitamin D TAB 250/125* TAB PO SCH (10:39)
[2019-03-21] MEDS: Lactobacillus Acidophilus* 1 TAB PO SCH (10:39)
[2019-03-21] MEDS: Cyanocobalamin TAB* 500 MCG PO SCH (10:39)
[2019-03-21] MEDS: Metoprolol Succinate XL TAB* 25 MG PO SCH ×2 (10:40→22:09)
[2019-03-21] MEDS: Multivitamins/Minerals TAB PO SCH (10:40)
[2019-03-21] MEDS: Magnesium Chloride EC TAB* 64 MG PO SCH (10:40)
[2019-03-21] MEDS: Enoxaparin(*) 80 MG/0.8 ML SYR SUBCUT SCH ×3 (11:36→22:11)
[2019-03-21] MEDS: Folic Acid TAB* 1 MG PO SCH (11:49)
[2019-03-21 13:40] LABS: ABS Eosinophils 0.1 10^3/ul (0-0.6); ABS Lymphocytes 0.5 10^3/ul (1.0-4.8); ABS Monocytes 0.8 10^3/ul (0-0.8); ABS Neutrophils 6.3 10^3/ul (1.5-7.7); Eosinophil % 0.7 %; Hematocrit 24 % (35-47); Hemoglobin 8.2 g/dL (12.0-16.0); Lymphocyte % 6.8 %; Mean Corpuscular HGB Conc 34 g/dL (31-36); Mean Corpuscular Hemoglobin 39 pg (27-31); Mean Corpuscular Volume 114 fL (80-97); Platelet Count 332 10^3/uL (150-450); Red Blood Count 2.11 10^6 /uL (3.70-4.87); Red Cell Distribution Width 14 % (10-15); White Blood Count 7.8 10^3/uL (3.5-10.8)
[2019-03-21 13:48] LABS: Activated Partial Thrombo Time 44.6 seconds (26.0-38.0); INR 1.27 (0.82-1.09)
[2019-03-21 13:50] LABS: BUN/Creatinine Ratio 33.3 (8-20); Calcium 8.4 mg/dL (8.6-10.3); EGFR African American 97.2 (>60); EGFR Non-African American 80.3 (>60); Potassium 3.9 mmol/L (3.5-5.0)
[2019-03-21] MEDS ORDERED: Famotidine IV* 10 MG/ML 2 ML (20 mg) IV SLOW PU PRN (15:42)
[2019-03-21] MEDS ORDERED: Ergocalciferol CAP* 50000 UNIT PO ONE (16:21)
[2019-03-21] MEDS ORDERED: Ferric Gluconate IV 25 MG in NS 0.9% 50 ML TEST DOSE IVPB ONE (17:00)
[2019-03-21] MEDS ORDERED: Ferric Gluconate IV* 100 MG in NS 100 ML - AFTER TEST DOSE IVPB ONE (18:00)
[2019-03-21] MEDS: Digoxin TAB* 0.125 MG PO SCH (18:14)
[2019-03-21] MEDS: Mirtazapine TAB* 15 MG PO SCH (22:08)
[2019-03-22] MEDS ORDERED: Furosemide IV* 10 MG/ML VIAL (40 MG) IV SCH (06:00)
[2019-03-22 08:46] LABS: Calcium 8.5 mg/dL (8.6-10.3); Magnesium 1.6 mg/dL (1.9-2.7); Potassium 3.8 mmol/L (3.5-5.0)
[2019-03-22 08:52] LABS: BUN/Creatinine Ratio 33.8 (8-20); EGFR African American 98.8 (>60); EGFR Non-African American 81.6 (>60)
[2019-03-22] MEDS ORDERED: Potassium Chlor TAB* 20 MEQ TAB.ER PO ONE (09:00)
--- NOTE | 2019-03-22 09:53 | PN ---
Subjective Date of Service: 03/22/19 Interval History: No acute events overnight. Started IV iron yesterday. Still supplementing aggressively with thiamine and magnesium. Still on IV furosemide. Pt always noted to be lying flat and requiring 5 L NC. Needs to get OOB to chair. IS encouraged. Patient denies dyspnea, headache, abdominal pain, nausea. She has no appetite. reports no food in 13 days. 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 Digoxin (Lanoxin Tab*) 0.125 mg PO 1700 [facility] Last Admin: 03/21/19 18:14 Dose: 0.125 mg Diphenhydramine HCl (Benadryl Po*) 25 mg PO ONCE PRN PRN 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 Divalproex Sodium (Depakote Dr Tab(*)) 500 mg PO BID [facility] Last Admin: 03/21/19 22:08 Dose: 500 mg Enoxaparin Sodium (Lovenox(*)) 65 mg SUBCUT Q12H [facility] Last Admin: 03/21/19 22:11 Dose: 65 mg Famotidine (Pepcid Iv*) 20 mg IV SLOW PU BID PRN PRN Reason: HEARTBURN Folic Acid (Folvite Tab*) 1 mg PO DAILY [facility] Last Admin: 03/21/19 11:49 Dose: Not Given Furosemide (Lasix Iv*) 40 mg IV DAILY@0600 [facility] Last Admin: 03/22/19 05:23 Dose: 40 mg Thiamine HCl 500 mg/ Sodium (Chloride) 255 mls @ 255 mls/hr IV TID [facility]; Protocol Last Admin: 03/21/19 22:21 Dose: 255 mls/hr Ferric Sodium Gluconate Complex 125 mg/ Sodium Chloride 110 mls @ 110 mls/hr IVPB DAILY [facility] Stop: 03/24/19 10:01 Magnesium Sulfate 3 gm/ Sodium (Chloride) 106 mls @ 53 mls/hr IVPB ONCE ONE Stop: 03/22/19 11:49 Lisinopril (Prinivil Tab*) 2.5 mg PO DAILY [facility] Last Admin: 03/21/19 09:49 Dose: 2.5 mg Metoprolol Succinate (Toprol Xl Tab*) 50 mg PO BEDTIME [facility] Last Admin: 03/21/19 22:09 Dose: 50 mg Mirtazapine (Remeron Tab*) 15 mg PO BEDTIME [facility] Last Admin: 03/21/19 22:08 Dose: 15 mg Vital Signs - 8 hr 03/22/19 04:02 Temperature 97.8 F Pulse Rate 83 Respiratory 21 Rate Blood Pressure 109/53 (mmHg) O2 Sat by Pulse 98 Oximetry Oxygen Devices in Use Now: OxyMask Appearance: chronically ill appearing woman in NAD Eyes: No Scleral Icterus Ears/Nose/Mouth/Throat: Clear Oropharnyx, Mucous Membranes Moist Neck: NL Appearance and Movements; NL JVP, Trachea Midline Respiratory: Symmetrical Chest Expansion and Respiratory Effort, Clear to Auscultation Cardiovascular: - - irreg irreg Extremities: No Edema Result Diagrams: 03/21/19 13:19 03/22/19 07:17 Microbiology and Other Data: Microbiology 03/18/19 11:16 Stool Occult Blood ([facility]) - Final Stool 03/17/19 21:00 Nasal Screen MRSA (PCR) - Final Nasal Mrsa Not Detected Assess/Plan/Problems-Billing Assessment: 68W with CAD, pAF (declined AC in the past), meningioma s/p resection, seizures , who is admitted for afib with RVR and new diagnosis of [id number]%. Course with altered mental status and anemia, both likely related to alcohol use. - Patient Problems (1) Acute systolic heart failure Comment: Newly decreased to 30-35%. Ischemic vs rate related, although decline looks regional and has h/o CAD. CXR and CT with diffuse pulm edema. No signs of infx. - LHC pending on Sunday (03/24) - cont furosemide 40mg IV daily, give extra dose today - cont lisinopril 2.5mg daily and monitor BP - cont metoprolol suc 50mg daily and monitor HR - monitor daily weights, Is & Os, renal function, electrolytes (2) PAF (paroxysmal atrial fibrillation) Comment: In RVR on Admission - xarelto changed to lovenox pending potential cath on Friday 03/24 - cont digoxin 0.125mcg daily - cont metoprolol succinate 50mg daily (3) Alcohol abuse Comment: Has not requiring benzos for withdrawal. Stopped drinking on Mar 09, prior to last admission - supplementing thiamine in case of Wernicke's, (got IV 03/18 - 03/22) - cont folate, monitor for signs of withdrawal (4) Anemia Comment: Newly decreased, with labs concerning for ACI and Fe-deficiency. FOBT negative. H/o significant alcohol use contributin, and macrocytic. No e/o hemolysis. - supplement iron IV (03/21 - 03/25) (5) CAD (coronary artery disease) Comment: Negative stress in 2018. - continue aspirin, atorvastatin - stop Zetia due to chronic diarrhea and excellent LDL - plan for cath Sunday, as pt with newly reduced EF (6) Hypomagnesemia Comment: Likely due to prolonged PPI use, alcohol use, and diarrhea. - supplement IV - seen by nephro for this issued, recommended mag supplimentation/protein and magnesium rich foods - restart oral Mag supplementation (Plus Protein at home) on discharge (7) GERD (gastroesophageal reflux disease) Comment: PPI contraindicated given significant hypomag. - switch to H2 aimee prn (8) Meningioma Comment: S/P Resection and radiation. With alterations in taste and smell to which she attributes her poor oral intake. (9) Seizure disorder Comment: - Continue Depakote - Level low, d/w neurology. Will not treat low level if no additional seizures (10) DVT prophylaxis Comment: - therapeutic lovenox for afib Status and Disposition: Inpatient - CHF, planned [facility] Sunday
[2019-03-22] MEDS ORDERED: Magnesium Sulfate IV* 3 GM in NS 0.9% 100 ML* 100 ML IVPB ONE (10:30)
[2019-03-22] MEDS ORDERED: NS 0.9% 250 ML* 250 ML ONE (10:51)
[2019-03-22] MEDS: Folic Acid TAB* 1 MG PO SCH (10:56)
[2019-03-22] MEDS: Atorvastatin* 10 MG TAB PO SCH (10:56)
[2019-03-22] MEDS: Divalproex DR TAB(*) 500 MG PO SCH ×2 (10:56→20:39)
[2019-03-22] MEDS: Lisinopril TAB* 5 MG PO SCH (10:56)
[2019-03-22] MEDS: Ferric Gluconate IV* 125 MG in NS 0.9% 100 ML* 100 ML IVPB SCH (10:57)
[2019-03-22] MEDS: Cyanocobalamin TAB* 500 MCG PO SCH (10:57)
[2019-03-22] MEDS: Aspirin 81 mg CHEW TAB* 81 MG TAB.CHEW PO SCH (10:57)
[2019-03-22] MEDS ORDERED: Furosemide IV* 10 MG/ML VIAL (40 MG) IV ONE (11:00)
[2019-03-22] MEDS: Thiamine IV 500 MG in NS 0.9% 250 ML (Wernicke-Korsakoff) IV SCH ×2 (11:01→15:16)
[2019-03-22] MEDS: Enoxaparin(*) 80 MG/0.8 ML SYR SUBCUT SCH ×2 (12:47→23:58)
[2019-03-22] MEDS: Thiamine TAB* 100 MG TAB PO SCH (17:59)
[2019-03-22] MEDS: Digoxin TAB* 0.125 MG PO SCH (17:59)
[2019-03-22] MEDS: Metoprolol Succinate XL TAB* 25 MG PO SCH (20:24)
[2019-03-22] MEDS: Mirtazapine TAB* 15 MG PO SCH (20:39)
[2019-03-23] MEDS ORDERED: Furosemide IV* 10 MG/ML 2 ML VIAL (20 MG) IV ONE (05:50)
[2019-03-23 07:25] LABS: BUN/Creatinine Ratio 33.3 (8-20); Calcium 8.7 mg/dL (8.6-10.3); EGFR African American 97.2 (>60); EGFR Non-African American 80.3 (>60); Magnesium 1.8 mg/dL (1.9-2.7); Potassium 3.3 mmol/L (3.5-5.0)
[2019-03-23] MEDS ORDERED: Potassium Chlor TAB* 20 MEQ TAB.ER PO ONE (08:01)
[2019-03-23] MEDS ORDERED: Magnesium Sulfate 2 GM IV* 2 GM/50 ML BAG IVPB ONE (08:01)
--- NOTE | 2019-03-23 08:09 | PN ---
Subjective Date of Service: 03/23/19 Interval History: BP decreased overnight after getting a second dose of furosemide IV yesterday. Morning dose decreased to 20mg IV. Prealbumin low and reporting that patient has not eaten food in 2 weeks. Pending nutrition consult today. Patient reports feeling weak. No appetite. Otherwise denies specific issues. 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 Digoxin (Lanoxin Tab*) 0.125 mg PO 1700 [facility] Last Admin: 03/22/19 17:59 Dose: 0.125 mg Diphenhydramine HCl (Benadryl Po*) 25 mg PO ONCE PRN PRN 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 Divalproex Sodium (Depakote Dr Tab(*)) 500 mg PO BID [facility] Last Admin: 03/22/19 20:39 Dose: 500 mg Enoxaparin Sodium (Lovenox(*)) 65 mg SUBCUT Q12H [facility] Last Admin: 03/22/19 23:58 Dose: 65 mg Famotidine (Pepcid Iv*) 20 mg IV SLOW PU BID PRN PRN Reason: HEARTBURN Folic Acid (Folvite Tab*) 1 mg PO DAILY [facility] Last Admin: 03/22/19 10:56 Dose: 1 mg Ferric Sodium Gluconate Complex 125 mg/ Sodium Chloride 110 mls @ 110 mls/hr IVPB DAILY [facility] Stop: 03/25/19 22:00 Last Admin: 03/22/19 10:57 Dose: 110 mls/hr Magnesium Sulfate (Magnesium Sulfate 2 Gm Iv*) 2 gm in 50 mls @ 50 mls/hr IVPB ONCE ONE Stop: 03/23/19 09:00 Lisinopril (Prinivil Tab*) 2.5 mg PO DAILY [facility] Last Admin: 03/22/19 10:56 Dose: 2.5 mg Metoprolol Succinate (Toprol Xl Tab*) 50 mg PO BEDTIME [facility] Last Admin: 03/22/19 20:24 Dose: Not Given Mirtazapine (Remeron Tab*) 15 mg PO BEDTIME [facility] Last Admin: 03/22/19 20:39 Dose: 15 mg Potassium Chloride (Klor Con Er Tab*) 40 meq PO ONCE ONE Stop: 03/23/19 08:02 Thiamine HCl (Vitamin B-1 Tab*) 100 mg PO DAILY [facility] Last Admin: 03/22/19 17:59 Dose: 100 mg Vital Signs - 8 hr 03/23/19 03:15 Temperature 97.2 F Pulse Rate 61 Respiratory 18 Rate Blood Pressure 106/41 (mmHg) O2 Sat by Pulse 99 Oximetry Oxygen Devices in Use Now: OxyMask Appearance: chronically ill-appearing frail woman in [facility], more alert and interactive today Respiratory: - - bibasilar crackles Cardiovascular: - - irreg irreg Abdominal: NL Sounds; No Tenderness; No Distention, No Hepatosplenomegaly Extremities: No Edema Skin: No Rash or Ulcers Neurological: Alert and Oriented x 3, - - face symmetric Result Diagrams: 03/21/19 13:19 03/23/19 06:24 Microbiology and Other Data: Microbiology 03/18/19 11:16 Stool Occult Blood ([place]) - Final Stool 03/17/19 21:00 Nasal Screen MRSA (PCR) - Final Nasal Mrsa Not Detected Assess/Plan/Problems-Billing Assessment: 68W with CAD, pAF (declined AC in the past), meningioma s/p resection, seizures , who is admitted for afib with RVR and new diagnosis of [id number]%. Course with altered mental status and anemia, both likely related to alcohol use. - Patient Problems (1) Acute systolic heart failure Comment: Newly decreased to 30-35%. Ischemic vs rate related, although decline looks regional and has h/o CAD. CXR and CT with diffuse pulm edema. No signs of infx. - [facility] pending on Sunday (03/24) - cont furosemide 20mg IV daily - cont lisinopril 2.5mg daily and monitor BP - cont metoprolol suc 50mg daily and monitor HR - monitor daily weights, Is & Os, renal function, electrolytes (2) PAF (paroxysmal atrial fibrillation) Comment: In RVR on Admission - xarelto changed to lovenox pending potential cath on Friday 03/24 - cont digoxin 0.125mcg daily - cont metoprolol succinate 50mg daily (3) Alcohol abuse Comment: Has not requiring benzos for withdrawal. Stopped drinking on Mar 09, prior to last admission - supplementing thiamine in case of Wernicke's, (got IV 03/18 - 03/22) - cont folate, monitor for signs of withdrawal (4) Anemia Comment: Newly decreased, with labs concerning for ACI and Fe-deficiency. FOBT negative. H/o significant alcohol use contributin, and macrocytic. No e/o hemolysis. - supplement iron IV (03/21 - 03/25) (5) CAD (coronary artery disease) Comment: Negative stress in 2018. - continue aspirin, atorvastatin - stop Zetia due to chronic diarrhea and excellent LDL - plan for cath Sunday, as pt with newly reduced EF (6) Hypomagnesemia Comment: Likely due to prolonged PPI use, alcohol use, and diarrhea. - supplement IV - seen by nephro for this issued, recommended mag supplimentation/protein and magnesium rich foods - restart oral Mag supplementation (Plus Protein at home) on discharge (7) GERD (gastroesophageal reflux disease) Comment: PPI contraindicated given significant hypomag. - switch to H2 aimee prn (8) Meningioma Comment: S/P Resection and radiation. With alterations in taste and smell to which she attributes her poor oral intake. (9) Seizure disorder Comment: - Continue Depakote - Level low, d/w neurology. Will not treat low level if no additional seizures (10) DVT prophylaxis Comment: - therapeutic lovenox for afib Status and Disposition: Inpatient - CHF, planned C Sunday
[2019-03-23] MEDS: Folic Acid TAB* 1 MG PO SCH (09:32)
[2019-03-23] MEDS: Divalproex DR TAB(*) 500 MG PO SCH ×3 (09:33→20:11)
[2019-03-23] MEDS: Atorvastatin* 10 MG TAB PO SCH (09:33)
[2019-03-23] MEDS: Lisinopril TAB* 5 MG PO SCH (09:33)
[2019-03-23] MEDS: Aspirin 81 mg CHEW TAB* 81 MG TAB.CHEW PO SCH (09:34)
[2019-03-23] MEDS: Cyanocobalamin TAB* 500 MCG PO SCH (09:34)
[2019-03-23] MEDS: Ferric Gluconate IV* 125 MG in NS 0.9% 100 ML* 100 ML IVPB SCH (09:54)
[2019-03-23] MEDS: Thiamine TAB* 100 MG TAB PO SCH (13:00)
[2019-03-23] MEDS: Enoxaparin(*) 80 MG/0.8 ML SYR SUBCUT SCH (13:00)
[2019-03-23] MEDS ORDERED: Albuterol/Ipratropium NEB.SOL* Albuterol 2.5 MG/Ipratropium 0.5 MG 3 ML INH PRN (16:30)
[2019-03-23] MEDS: Digoxin TAB* 0.125 MG PO SCH (18:05)
[2019-03-23] MEDS: Metoprolol Succinate XL TAB* 25 MG PO SCH ×2 (20:01→20:09)
[2019-03-23] MEDS: Mirtazapine TAB* 15 MG PO SCH ×2 (20:02→20:11)
[2019-03-24 04:47] LABS: Hematocrit 24 % (35-47); Mean Corpuscular HGB Conc 33 g/dL (31-36); Mean Corpuscular Hemoglobin 38 pg (27-31); Mean Corpuscular Volume 114 fL (80-97); Platelet Count 389 10^3/uL (150-450); Red Cell Distribution Width 14 % (10-15); White Blood Count 11.2 10^3/uL (3.5-10.8)
[2019-03-24 05:02] LABS: Anion Gap 9 mmol/L (2-11); BUN/Creatinine Ratio 42.6 (8-20); Blood Urea Nitrogen 26 mg/dL (6-24); CO2 Carbon Dioxide 25 mmol/L (22-32); Calcium 8.9 mg/dL (8.6-10.3); Chloride 107 mmol/L (101-111); EGFR African American 117.7 (>60); EGFR Non-African American 97.2 (>60); Glucose 86 mg/dL (70-100); Magnesium 1.9 mg/dL (1.9-2.7); Potassium 3.8 mmol/L (3.5-5.0); Sodium 141 mmol/L (135-145)
[2019-03-24 05:30] LABS: Iron 23 ug/dL (50-212)
[2019-03-24] MEDS ORDERED: Furosemide IV* 10 MG/ML 2 ML VIAL (20 MG) IV SCH (06:00)
[2019-03-24] MEDS ORDERED: Diazepam TAB(*) 5 MG PO PRN (07:00)
[2019-03-24] MEDS ORDERED: diPHENhydraMINE PO* 25 MG PO PRN (07:00)
[2019-03-24] MEDS ORDERED: Furosemide IV* 10 MG/ML 2 ML VIAL (20 MG) IV ONE (09:19)
[2019-03-24] MEDS ORDERED: Potassium Chlor TAB* 20 MEQ TAB.ER PO ONE (09:21)
[2019-03-24] MEDS ORDERED: Magnesium Sulfate 1 GM IV* 1 GM/100 ML BAG IV ONE (09:22)
--- NOTE | 2019-03-24 09:23 | PN ---
Subjective Date of Service: 03/24/19 - decompensated SHF, troponin elevation. Interval History: Patient confused. Short of breath. No c/o chest pain. Not clear what her baseline mentation is. Nursing staff states PCP called and spoke with primary team and informed staff that her confusion is new. Her Zach is to come in around 1000 today. She states she is not aware that she is suppose to have cardiac cath. Medications Active Medications: Acetaminophen (Tylenol Tab*) 650 mg PO Q4H PRN PRN Reason: PAIN Last Admin: 03/20/19 05:59 Dose: 650 mg Albuterol/Ipratropium (Duoneb (Albuterol 2.5 Mg/Ipratropium 0.5 Mg)) 1 neb INH Q6H PRN PRN Reason: SOB/WHEEZING Aspirin (Aspirin 81 Mg Chew Tab*) 81 mg PO DAILY [facility] Last Admin: 03/23/19 09:34 Dose: 81 mg Atorvastatin Calcium (Lipitor*) 10 mg PO DAILY [facility] Last Admin: 03/23/19 09:33 Dose: 10 mg Cyanocobalamin (Vitamin B12 Tab*) 1,000 mcg PO QAM [facility] Last Admin: 03/23/19 09:34 Dose: 1,000 mcg Diazepam (Valium Tab(*)) 2.5 mg PO ONCE PRN PRN 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 Digoxin (Lanoxin Tab*) 0.125 mg PO 1700 [facility] Last Admin: 03/23/19 18:05 Dose: 0.125 mg Diphenhydramine HCl (Benadryl Po*) 25 mg PO ONCE PRN PRN 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 Divalproex Sodium (Depakote Dr Tab(*)) 500 mg PO BID [facility] Last Admin: 03/23/19 20:11 Dose: Not Given Famotidine (Pepcid Iv*) 20 mg IV SLOW PU BID PRN PRN Reason: HEARTBURN Folic Acid (Folvite Tab*) 1 mg PO DAILY [facility] Last Admin: 03/23/19 09:32 Dose: 1 mg Furosemide (Lasix Iv*) 20 mg IV DAILY@0600 [facility] Last Admin: 03/24/19 05:59 Dose: 20 mg Ferric Sodium Gluconate Complex 125 mg/ Sodium Chloride 110 mls @ 110 mls/hr IVPB DAILY [facility] Stop: 03/25/19 22:00 Last Admin: 03/23/19 09:54 Dose: 110 mls/hr Lisinopril (Prinivil Tab*) 2.5 mg PO DAILY [facility] Last Admin: 03/23/19 09:33 Dose: 2.5 mg Metoprolol Succinate (Toprol Xl Tab*) 37.5 mg PO BEDTIME [facility] Mirtazapine (Remeron Tab*) 15 mg PO BEDTIME [facility] Last Admin: 03/23/19 20:11 Dose: Not Given Thiamine HCl (Vitamin B-1 Tab*) 100 mg PO DAILY [facility] Last Admin: 03/23/19 13:00 Dose: 100 mg Objective Vital Signs: Temp Pulse Resp BP Pulse Ox 96.5 F 48 24 114/31 94 03/24/19 08:15 03/24/19 08:15 03/24/19 08:15 03/24/19 08:15 03/24/19 08:15 Oxygen Devices in Use Now: Nasal Cannula, OxyMask Appearance: Lying in bed, alert to self and place. appears in NAD but is SOB with conversation. Ears/Nose/Mouth/Throat: NL Teeth, Lips, Gums, Clear Oropharnyx, - - dry mucous membranes. Neck: - - + JVP. Respiratory: - - inspiratory rales noted throughout when lungs sounds were auscultated anteriorally. respirations are labored. no retractions. Cardiovascular: - - Rico S1, S2, irregular rate and rhythm. + mitral murmur. Extremities: - - trace pitting bilateral pretibial edema Skin: No Rash or Ulcers Neurological: - - Alert to self and place not time. Lines/Tubes/Other Access: Clean, Dry and Intact Peripheral IV Laboratory Results: 03/24/19 04:36 03/24/19 04:36 INR (Anticoag Therapy) 1.27 (0.82-1.09) H 03/21/19 13:19 APTT 44.6 seconds (26.0-38.0) H 03/21/19 13:19 Total Bilirubin 0.40 mg/dL (0.2-1.0) 03/17/19 15:54 AST 34 U/L (13-39) 03/17/19 15:54 ALT 14 U/L (7-52) 03/17/19 15:54 Alkaline Phosphatase 108 U/L (34-104) H 03/17/19 15:54 B-Natriuretic Peptide > 1300 pg/mL (<=100) H 03/17/19 15:54 Total Protein 5.3 g/dL (6.4-8.9) L 03/17/19 15:54 Albumin 2.6 g/dL (3.2-5.2) L 03/17/19 15:54 Globulin 2.7 g/dL (2-4) 03/17/19 15:54 Albumin/Globulin Ratio 1.0 (1-3) 03/17/19 15:54 Triglycerides 93 mg/dL 03/17/19 18:22 Cholesterol 96 mg/dL 03/17/19 18:22 LDL Cholesterol 40 mg/dL 03/17/19 18:22 HDL Cholesterol 37.5 mg/dL 03/17/19 18:22 TSH 3.24 mcIU/mL (0.34-5.60) 03/17/19 18:22 03/17/19 03/17/19 03/17/19 15:54 18:22 21:21 Troponin I 0.33 H* 0.39 H* 0.31 H* 03/18/19 03/18/19 03/19/19 00:20 22:25 03:46 Troponin I 0.35 H* 0.59 H* 0.44 H* Laboratory Results - last 24 hr 03/24/19 03/24/19 04:36 04:36 WBC 11.2 H RBC 2.10 L Hgb 8.0 L Hct 24 L MCV 114 H MCH 38 H MCHC 33 RDW 14 Plt Count 389 MPV 8.0 Sodium 141 Potassium 3.8 Chloride 107 Carbon Dioxide 25 Anion Gap 9 BUN 26 H Creatinine 0.61 Est GFR ( Amer) 117.7 Est GFR (Non-Af Amer) 97.2 BUN/Creatinine Ratio 42.6 H Glucose 86 Calcium 8.9 Magnesium 1.9 Iron 23 L Diagnostic Imaging: *[facility]* [place] [address] Fax #: [phone] Transthoracic Echocardiogram Patient: Janell Farr : 1950 Study Date: 03/18/2019 Age: 68 Gender: F HR: 92 bpm Height: 64 in /162.6 cm BSA: 1.57 m^2 Weight: 119.7 lb /54.4 kg BMI: 20.6 kg/m^2 *Fire Ranger: * Doris Torres RDCS RN *Referring Physician: * Devendra Rios *Reading Physician: * Hortencia Coronel MD Indications: Congestive Heart Failure. Chest Pain, unspecified. History: Atrial fibrillation. Coronary artery disease. PCI in 2003. Chronic macrocytic anemia. ETOH use until recently. Meningioma with resection. Risk factors: Former tobacco use. Conclusions Summary: - Left ventricle: Systolic function is moderately reduced. The estimated ejection fraction is 30-35%. Hypokinesis of the mid-apicalanteroseptal myocardium. Hypokinesis of the mid-apicallateral myocardium. Hypokinesis of the inferior and basal inferoseptal myocardium. Hypokinesis of the mid-apicalanterior myocardium. - Left atrium: The atrium is severely dilated. - Mitral valve: There is moderate regurgitation. - Tricuspid valve: There is moderate regurgitation. - Pulmonary arteries: Systolic pressure is moderately increased, estimated to be 49 mm Hg. - C/t 06/05/2017, left ventricle ejection fraction was reported 60-65% then. Mitral regurgitation was trace then. This report is only to be considered final once signed by the Provider(s) as displayed in the "<Electronically Signed by >" field (s). Absence of a signature indicates the report is in a draft status and still needs to be finalized. In the event this document was created by someone other than the signing Provider, the individual initiating the document will be listed in the "Entered by:" or "Dictated by:" gomez. EKG Data: 03/23/2018; Afib rate [address] with anterolateral TWI V3-V6 Assessment/Plan #1 NSTEMI; Presented with c/o chest pain and SOB, Mag was 1 at time of presentation. LVEF now severely reduced. Per outpatient echo from 06/05/2017 LVEF was 60-655. She has new anterolateral ST depression with TWI. Troponin peaked on 03/18/2019 at .59. She states she is CP free and not SOB. She is confused thus making accuracy of symptoms difficult. She was suppose to have LHC today. She is still listed as a DNR/DNI. This would have to be reversed for 30 days. I spoke with her zach who states he was make her full code. What is more concerning is her increased confusion. I am told this is not her baseline. will repeat Troponin with CK and CKMB. I updated primary team about concern for confusion. Will continue ASA 81/day, Toprol and statin therapy. Spoke with Dr. Carnes who agrees with cancelling LHC today. I'll speak with Dr. Carnes about starting Plavix 75day in combination with renal dose Xarelto if neurologist eval is normal. Of concern though is her fall history. Will follow closely and address antiplatelet and OAC after neuro eval. #2 Newly found SHF with +RWMA. Appears decompensated with diffuse inspiratory rales, pitting edema and JVD. Will increase Lasix to 40mg IV daily. Replace k+ and Mag. She will need daily BMP and Mag given known electrolyte imbalances. Strict intake and output, daily weights. Given relative bradycardia ( HR 45-55) Will stop Dig and decrease Toprol to 37.5mg/day. Continue Lisinopril 2.5mg/day. #3 h/o long standing persistent AF; Rates appear controlled. given relative bradycardia. Digoxin is to be stopped. Will reduce Toprol to 37.5mg/day. Will address OAC after neuro eval. Her last dose of Lovenox was last night in preparation for LHC which has been cancelled. #4 Confusion; Ammonia level is normal. She has a long standing h/o alcoholism consuming 1 bottle of wine a night. Primary team notified of concerns. Will differ neuro eval to them. CK and CKMB added to troponin today. Attending: Jonh Carnes
--- NOTE | 2019-03-24 09:43 | PN ---
Subjective Date of Service: 03/24/19 Interval History: Pt is feeling ok currently. She tells me that she is in the hospital but that it is 1951. She can not provide any further pertinent information. Family History: Unchanged from Admission Social History: Unchanged from Admission Past Medical History: Unchanged from Admission Objective Active Medications: Acetaminophen (Tylenol Tab*) 650 mg PO Q4H PRN PRN Reason: PAIN Last Admin: 03/20/19 05:59 Dose: 650 mg Albuterol/Ipratropium (Duoneb (Albuterol 2.5 Mg/Ipratropium 0.5 Mg)) 1 neb INH Q6H PRN PRN Reason: SOB/WHEEZING Aspirin (Aspirin 81 Mg Chew Tab*) 81 mg PO DAILY [facility] Last Admin: 03/23/19 09:34 Dose: 81 mg Atorvastatin Calcium (Lipitor*) 10 mg PO DAILY [facility] Last Admin: 03/23/19 09:33 Dose: 10 mg Cyanocobalamin (Vitamin B12 Tab*) 1,000 mcg PO QAM [facility] Last Admin: 03/23/19 09:34 Dose: 1,000 mcg Divalproex Sodium (Depakote Dr Tab(*)) 500 mg PO BID [facility] Last Admin: 03/23/19 20:11 Dose: Not Given Famotidine (Pepcid Iv*) 20 mg IV SLOW PU BID PRN PRN Reason: HEARTBURN Folic Acid (Folvite Tab*) 1 mg PO DAILY [facility] Last Admin: 03/23/19 09:32 Dose: 1 mg Furosemide (Lasix Iv*) 40 mg IV DAILY@0600 [facility] Ferric Sodium Gluconate Complex 125 mg/ Sodium Chloride 110 mls @ 110 mls/hr IVPB DAILY [facility] Stop: 03/25/19 22:00 Last Admin: 03/23/19 09:54 Dose: 110 mls/hr Magnesium Sulfate/Dextrose (Magnesium Sulfate 1 Gm Iv*) 1 gm in 100 mls @ 200 mls/hr IV ONCE ONE Stop: 03/24/19 09:51 Lisinopril (Prinivil Tab*) 2.5 mg PO DAILY [facility] Last Admin: 03/23/19 09:33 Dose: 2.5 mg Metoprolol Succinate (Toprol Xl Tab*) 37.5 mg PO BEDTIME [facility] Mirtazapine (Remeron Tab*) 15 mg PO BEDTIME [facility] Last Admin: 03/23/19 20:11 Dose: Not Given Thiamine HCl (Vitamin B-1 Tab*) 100 mg PO DAILY [facility] Last Admin: 03/23/19 13:00 Dose: 100 mg Vital Signs - 8 hr 03/24/19 03/24/19 03/24/19 03:15 08:00 08:15 Temperature 98.3 F 96.5 F Pulse Rate 50 48 Respiratory 16 16 24 Rate Blood Pressure 129/49 114/31 (mmHg) O2 Sat by Pulse 89 94 Oximetry Oxygen Devices in Use Now: Nasal Cannula Appearance: Middle aged female who appears older than her stated age in NAD Eyes: No Scleral Icterus Ears/Nose/Mouth/Throat: Mucous Membranes Moist Respiratory: Symmetrical Chest Expansion and Respiratory Effort, - - diffuse coarse crackles bilaterally Cardiovascular: NL Sounds; No Murmurs; No JVD, - - irregularly irregular, controlled rate, 1+ L LE edema, trace R LE edema Abdominal: NL Sounds; No Tenderness; No Distention Extremities: No Clubbing, Cyanosis Skin: - - purple bruise posterior R shoulder Neurological: - - alert, very confused Result Diagrams: 03/24/19 04:36 03/24/19 04:36 Microbiology and Other Data: Microbiology 03/18/19 11:16 Stool Occult Blood ([place]) - Final Stool 03/17/19 21:00 Nasal Screen MRSA (PCR) - Final Nasal Mrsa Not Detected Assess/Plan/Problems-Billing Ms Farr is a 68yo F with a h/o CAD, pAF (declined AC in the past), meningioma s/p resection and seizures, who is admitted for afib with RVR and new diagnosis of [id number]%. Course with altered mental status and anemia, both likely related to alcohol use. - Patient Problems (1) Acute systolic heart failure Current Visit: Yes Status: Acute Code(s): I50.21 - ACUTE SYSTOLIC ( CONGESTIVE) HEART FAILURE SNOMED Code(s): 978211432 Comment: Pt found to have a newly reduced EF of 30-35%. It is unclear if the reduced EF is seconary to uncontrolled afib vs ischemia. Plan was for catheterization today but this is being cancelled until her mental status changes and anemia are better understood. Continue lasix (increased back to 40mg daily today), lisinopril and metoprolol XL. Continue to monitor fluid balance. (2) Anemia Current Visit: Yes Status: Acute Code(s): D64.9 - ANEMIA, UNSPECIFIED SNOMED Code(s): 324969095 Comment: Newly decreased, with labs concerning for anemia of chronic disease and possibly Fe-deficiency. Stool guaiac negative. The patient's MCV is markedly elevated likely secondary to her chronic alcohol abuse. She is receiving supplemental IV iron through tomorrow. (3) CAD (coronary artery disease) Current Visit: Yes Status: Acute Code(s): I25.10 - ATHSCL HEART DISEASE OF [place] CORONARY ARTERY W/O ANG PCTRS SNOMED Code(s): 63898222 Comment: Pt with mildly elevated troponin peaking at 0.59. This in conjuction with her newly reduced EF makes us want to do catheterization but this is not the optimal time to do the cath. Continue ASA, lipitor and metoprolol for now. Cardiology continues to follow. (4) PAF (paroxysmal atrial fibrillation) Current Visit: Yes Status: Acute Code(s): I48.0 - PAROXYSMAL ATRIAL FIBRILLATION SNOMED Code(s): 449414262 Comment: Pt in afib in RVR on admission. HR is now controlled. Metoprolol XL dose decreased to 37.5mg daily by cards because of lower resting rate. Continue digoxin 0.125mcg daily. (5) Alcohol abuse Current Visit: Yes Status: Acute Code(s): F10.10 - ALCOHOL ABUSE, UNCOMPLICATED SNOMED Code(s): 87195507 Comment: Pt has not been drinking since 03/09/19. Continue thiamine, folate. I question if her anemia and mental status changes are secondary to prolonged alcohol abuse. (6) GERD (gastroesophageal reflux disease) Current Visit: Yes Status: Acute Code(s): K21.9 - GASTRO-ESOPHAGEAL REFLUX DISEASE WITHOUT ESOPHAGITIS SNOMED Code(s): 233513544 Comment: Continue famotidine. (7) Hypomagnesemia Current Visit: Yes Status: Acute Code(s): E83.42 - HYPOMAGNESEMIA SNOMED Code(s): 999736563 Comment: Chronic and likely due to prolonged PPI use, alcohol use, and diarrhea. (8) Meningioma Current Visit: Yes Status: Acute Code(s): D32.9 - BENIGN NEOPLASM OF MENINGES, UNSPECIFIED SNOMED Code(s): 601745174 Comment: S/P Resection and radiation. With alterations in taste and smell to which she attributes her poor oral intake. (9) Seizure disorder Current Visit: Yes Status: Acute Code(s): G40.909 - EPILEPSY, UNSP, NOT INTRACTABLE, WITHOUT STATUS EPILEPTICUS SNOMED Code(s): 319514159 Comment: Continue current dose of depakote. Without any seizures will not adjust dose despite low depakote level. (10) DVT prophylaxis Current Visit: Yes Status: Acute Code(s): Z29.9 - ENCOUNTER FOR PROPHYLACTIC MEASURES, UNSPECIFIED SNOMED Code(s): 094631004 Comment: Resume lovenox (or renally dosed xarelto) after CT brain (11) HTN (hypertension) Current Visit: No Status: Acute Code(s): I10 - ESSENTIAL (PRIMARY) HYPERTENSION SNOMED Code(s): 71179645 Comment: - Hypotensive due to Afib treatment. - Continue metoprolol - Judicious fluids due to HF Status and Disposition: .
[2019-03-24 09:46] LABS: Creatine Kinase 20 U/L (10-223)
[2019-03-24] MEDS: Ferric Gluconate IV* 125 MG in NS 0.9% 100 ML* 100 ML IVPB SCH (09:58)
[2019-03-24] MEDS: Thiamine TAB* 100 MG TAB PO SCH (09:59)
[2019-03-24] MEDS: Divalproex DR TAB(*) 500 MG PO SCH ×2 (09:59→21:23)
[2019-03-24] MEDS: Aspirin 81 mg CHEW TAB* 81 MG TAB.CHEW PO SCH (09:59)
[2019-03-24] MEDS: Folic Acid TAB* 1 MG PO SCH (09:59)
[2019-03-24] MEDS: Atorvastatin* 10 MG TAB PO SCH (09:59)
[2019-03-24] MEDS: Cyanocobalamin TAB* 500 MCG PO SCH (09:59)
[2019-03-24] MEDS: Lisinopril TAB* 5 MG PO SCH (10:00)
[2019-03-24 10:44] LABS: CKMB ng/mL 2.6 ng/mL (0.6-6.3)
[2019-03-24 13:09] LABS: Troponin I 1.09 ng/mL (<0.03)
[2019-03-24 15:35] LABS: Troponin I 1.23 ng/mL (<0.03)
[2019-03-24] MEDS: Cefepime ADVAN(*) 1 GM in NS 0.9% 50 ML* 50 ML IVPB SCH (17:49)
[2019-03-24] MEDS ORDERED: Vancomycin(*) 1,000 MG in NS 0.9% 250 ML* 250 ML IVPB ONE (18:00)
[2019-03-24] MEDS ORDERED: Vancomycin per Pharmacy* NOTE FOLLOW UP SCH (18:00)
[2019-03-24] MEDS ORDERED: Magnesium Sulfate 2 GM IV* 2 GM/50 ML BAG IVPB ONE (19:24)
[2019-03-24] MEDS ORDERED: Furosemide IV* 10 MG/ML VIAL (40 MG) ONE (19:29)
[2019-03-24] MEDS ORDERED: Haloperidol INJ IV/IM* 5 MG/ML AMP IV SLOW PU PRN (19:31)
[2019-03-24] MEDS ORDERED: Haloperidol INJ IV/IM* 5 MG/ML AMP ONE (19:33)
[2019-03-24] MEDS ORDERED: Furosemide IV* 10 MG/ML VIAL (40 MG) IV SCH (20:00)
--- NOTE | 2019-03-24 20:06 | PN ---
Hospitalist Progress Note Date of Service: 03/24/19 Cross Cover Note 68F PMH CAD, PAF not on AC, mengioma s/po resection, seizure d/o on PPX, ETOH use, who presented 2x in the last 4 weeks, once with mechanical fall, d/c to STR then represented with AMS found to have new anemia, stay c/b elevated troponin and new HFrEF EF 30-35%, possible ETOH w/drawal, and hypoxic resp failure necessitating transfer to ICU on 03/24 Called to bedside for resp distress PE Delirious woman in acute resp distress RR 35, purse lip breathing on 15L oxymask Diffuse crackles RRR no MRG Belly soft NT ND Ext warm well perfused 1+ non pitting edema Follows commands and moves all 4 limbs spontaneously PEERLA AOx1 CXR Shows diffuse pulm edema Stat labs show Leukocytosis with left shift, otherwise stable, EKG shows stable fib, Trop 0.8, down trending, ABG stable Plan by system and active problem Neuro 1. Delirium: Initially thought to be ETOH and now likely hospital associated given length of stay -Low dose Haldol 2.5mg, QTC <500 -On thiamine for possible wernickes 2. Seizure d/o hx of mengioma: Change to Depakote IV 2/2 to poor mental status 3. ETOH use d/o: Out of DT window Pulm 1. Hypoxic Resp failure - 2/2 to decompensated HFrEF with pulm edema, possibly underlying PNA -Repeat CXR 1/7AM -Trialed Lasix 40mg IV x 1, 250cc of output in 1 hr, will start lasix gtt and mcfarland in place for acute I/O -No wheeze or e/o bronchospasm -Placed on HFNC, pt much more comfortable, no e/o hypercarbia on gas -Discussed with tenuous resp status and he confirmed DNR DNI as per MOLST form (see GOC below) Cardiac 1. HFrEF: new EF 35-40%-thought to be possibly ischemic vs rate related, C was planned for this hospitalization though canceled 2/2 to resp status, on asa , statin, BB -On lasix gtt 10mg/hr for volume control, BB and LORELEI I 2. AFib: On BB and currently rate controlled, bradycardic at times 3. Elevated troponin: Trended down, hold on trending further MAG >2, K>4 GI: Poor PO intake 2/2 to delerium, CTM -On famotidine for GERD Renal: No active, strict I/O mcfarland in place ID: 1. Possibly underlying PNAL Started Vanc/Cefipime for leukocytosis and possibly underlying PNA -FU CXR -UA clear -Blood cx not done, low utility MSK 1. Pelvic Fracture: IN setting of blt hip prostehtics-non urgent eval by ortho, non displaced Heme 1. Anemia/thrombocytopenia: Thought to be from bone marrow suppresion, on B12, stable with no e/o acute active blood loss -S/p iron infusion GOC: Discussion with pts Reji this evening, discussed resp status, CHF and ICU admission, changing to HFNC -He reiterates under no circumstances would she want intubation even if it were life threatning resp distress and would be OK with BiPAP CPAP -She is a clear DNR -Prognosis is guarded, he is aware we will trial Lasix gtt and HFNC to attempt to improve resp status
[2019-03-24 20:32] LABS: ABS Lymphocytes 0.6 10^3/ul (1.0-4.8); ABS Monocytes 0.9 10^3/ul (0-0.8); ABS Neutrophils 13.3 10^3/ul (1.5-7.7); Eosinophil % 0.1 %; Hematocrit 28 % (35-47); Hemoglobin 9.2 g/dL (12.0-16.0); Lymphocyte % 4.2 %; Mean Corpuscular HGB Conc 33 g/dL (31-36); Mean Corpuscular Hemoglobin 38 pg (27-31); Mean Corpuscular Volume 115 fL (80-97); Mean Platelet Volume 8.2 fL (7.4-10.4); Nucleated Red Blood Cells % 0.1; Platelet Count 412 10^3/uL (150-450); Red Cell Distribution Width 14 % (10-15); White Blood Count 14.9 10^3/uL (3.5-10.8)
[2019-03-24 20:41] LABS: Anion Gap 12 mmol/L (2-11); BUN/Creatinine Ratio 39.7 (8-20); Blood Urea Nitrogen 25 mg/dL (6-24); CO2 Carbon Dioxide 24 mmol/L (22-32); Calcium 9.3 mg/dL (8.6-10.3); Chloride 106 mmol/L (101-111); EGFR African American 113.4 (>60); EGFR Non-African American 93.7 (>60); Glucose 104 mg/dL (70-100); Potassium 3.9 mmol/L (3.5-5.0); Sodium 142 mmol/L (135-145)
[2019-03-24] MEDS ORDERED: Metoprolol Succinate XL TAB* 25 MG PO SCH (21:00)
[2019-03-24 21:19] LABS: Urine Appearance Clear; Urine Bilirubin Negative (Negative); Urine Blood Negative (Negative); Urine Color Yellow; Urine Glucose Negative (Negative); Urine Ketones Trace (Negative); Urine Nitrite Negative (Negative); Urine Protein Negative (Negative); Urine Specific Gravity 1.013 (1.010-1.030); Urine Urobilinogen Negative (Negative)
[2019-03-24] MEDS: Furosemide IV* 100 MG in NS 0.9% 100 ML* 90 ML IV SCH (21:22)
[2019-03-24 22:08] LABS: Troponin I 0.84 ng/mL (<0.03)
[2019-03-25] MEDS ORDERED: Lorazepam PYXIS KEY ONE (04:20)
[2019-03-25] MEDS ORDERED: LORazepam INJ* 2 MG/ML 1 ML VIAL ONE (04:21)
[2019-03-25] MEDS ORDERED: LORazepam INJ* 2 MG/ML 1 ML VIAL IV PUSH ONE (04:34)
[2019-03-25] MEDS ORDERED: Lorazepam PYXIS KEY PRN (04:34)
[2019-03-25] MEDS ORDERED: Magnesium Sulfate 2 GM IV* 2 GM/50 ML BAG IVPB ONE (04:35)
[2019-03-25 04:43] LABS: Hematocrit 28 % (35-47); Hemoglobin 9.4 g/dL (12.0-16.0); Mean Corpuscular HGB Conc 34 g/dL (31-36); Mean Corpuscular Hemoglobin 38 pg (27-31); Mean Corpuscular Volume 114 fL (80-97); Mean Platelet Volume 8.4 fL (7.4-10.4); Platelet Count 429 10^3/uL (150-450); Red Blood Count 2.44 10^6 /uL (3.70-4.87); Red Cell Distribution Width 14 % (10-15); White Blood Count 16.9 10^3/uL (3.5-10.8)
[2019-03-25 04:50] LABS: Calcium 9.2 mg/dL (8.6-10.3); Magnesium 1.8 mg/dL (1.9-2.7); Potassium 3.6 mmol/L (3.5-5.0)
[2019-03-25 04:56] LABS: BUN/Creatinine Ratio 33.3 (8-20); EGFR African American 102.1 (>60); EGFR Non-African American 84.4 (>60)
[2019-03-25] MEDS: Cefepime ADVAN(*) 1 GM in NS 0.9% 50 ML* 50 ML IVPB SCH (04:59)
[2019-03-25 05:11] LABS: ABS Monocytes 1.1 10^3/ul (0-0.8); ABS Neutrophils 14.7 10^3/ul (1.5-7.7); Eosinophil % 0.1 %; Lymphocyte % 5.8 %; Nucleated Red Blood Cells % 0.1
[2019-03-25] MEDS ORDERED: Furosemide IV* 10 MG/ML 2 ML VIAL (20 MG) IV SCH (06:00)
[2019-03-25] MEDS ORDERED: Vancomycin(*) 1,250 MG in NS 0.9% 250 ML* 250 ML IVPB SCH (06:00)
[2019-03-25] MEDS: Furosemide IV* 100 MG in NS 0.9% 100 ML* 90 ML IV SCH (06:28)
[2019-03-25] MEDS: Aspirin 81 mg CHEW TAB* 81 MG TAB.CHEW PO SCH (08:50)
[2019-03-25] MEDS: Divalproex DR TAB(*) 500 MG PO SCH (08:51)
[2019-03-25] MEDS: Thiamine TAB* 100 MG TAB PO SCH (08:51)
[2019-03-25] MEDS: Lisinopril TAB* 5 MG PO SCH (08:51)
[2019-03-25] MEDS: Cyanocobalamin TAB* 500 MCG PO SCH (08:51)
[2019-03-25] MEDS: Folic Acid TAB* 1 MG PO SCH (08:51)
[2019-03-25] MEDS: Atorvastatin* 10 MG TAB PO SCH (08:51)
[2019-03-25] MEDS ORDERED: Valproic Acid IV(*) 100 MG/ML 5 ML VIAL (500 MG) IVPB SCH (09:00)
[2019-03-25] MEDS: Valproic Acid IV(*) 500 MG in NS 0.9% 100 ML* 100 ML IVPB SCH ×2 (09:05→21:18)
[2019-03-25] MEDS ORDERED: Caspofungin(NF) 70 MG in NS 0.9% 250 ML* 250 ML IV ONE (09:55)
[2019-03-25] MEDS ORDERED: fentaNYL* 50 MCG/ML 2 ML VIAL (100 MCG VIAL) IV SLOW PU PRN (10:34)
[2019-03-25] MEDS: Ferric Gluconate IV* 125 MG in NS 0.9% 100 ML* 100 ML IVPB SCH (10:53)
[2019-03-25] MEDS ORDERED: Enoxaparin(*) 30 MG/0.3 ML SYR SUBCUT SCH (11:00)
[2019-03-25] MEDS ORDERED: fentaNYL PATCH 50 MCG/HR TRANSDERM SCH (11:00)
[2019-03-25] MEDS ORDERED: Anidulafungin* 200 MG in NS 0.9% 250 ML* 200 ML IVPB ONE (12:00)
--- NOTE | 2019-03-25 13:47 | PN ---
Date of Service: 03/25/19 Critical Care Services: Worsening respiratory failure necessitating ICU transfer overnight. Vital Signs: Temp Pulse Resp BP SpO2 FiO2 37.0 C 66 18 119/54 96 100 03/25/19 12:30 03/25/19 12:30 03/25/19 12:30 03/25/19 12:30 03/25/19 12:30 03/25 07:44 Physical Exam: Gen: cahectic, poorly responsive HEENT: NCAT, PERRL Lungs: rales Cardiac: S1S2 irregular Abdomen: soft, ND, +BS Extremities: no edema Neuro: moves ext spont, encephalopathic Fluid Balance (Past 24 Hours): I= O= Net Intake & Output 03/23/19 03/24/19 03/25/19 03/26/19 06:59 06:59 06:59 06:59 Intake Total 530 330 491.7 0 Output Total 1250 0 2110 800 Balance -720 330 -1618.3 -800 Weight 62.605 kg 62.278 kg 60.6 kg 59.6 kg Intake: IV Fluids 250 215 Ferric Gluconate 110 NS (0.9%) 2 magnesium 103 thiamine 250 IVPB 210 93 Ferric Gluconate 110 NS (0.9%) 50 magnesium 100 43 Medicated IV 83.7 GEN - Furosemide/Lasix 83.7 Oral 280 120 100 0 Output: Urine 800 0 Queen 450 2110 800 Other: Estimated Void Medium Large # Bowel Movements 1 0 # Voids 1 2 Labs: Laboratory Results - last 24 hr 03/24/19 03/24/19 03/24/19 15:05 17:56 19:15 WBC RBC Hgb Hct MCV MCH MCHC RDW Plt Count MPV Neut % (Auto) Lymph % (Auto) [place] % (Auto) Eos % (Auto) Baso % (Auto) Absolute Neuts (auto) Absolute Lymphs (auto) Absolute Monos (auto) Absolute Eos (auto) Absolute Basos (auto) Absolute Nucleated RBC Nucleated RBC % Hem Pathologist Commnt Patient Temperature ABG pH ABG pH (Temp Correct) ABG pCO2 ABG pCO2 (Temp Corrct ABG pO2 ABG pO2 (Temp Correct ABG HCO3 ABG O2 Saturation ABG Base Excess Respiration Rate O2 Delivery Device Ventilator Type Vent Mode FiO2 Inspiratory Time PEEP Pressure Support Pressure Control EPAP IPAP BiPAP Sodium Potassium Chloride Carbon Dioxide Anion Gap BUN Creatinine Est GFR ( Amer) Est GFR (Non-Af Amer) BUN/Creatinine Ratio Glucose Lactic Acid Calcium Magnesium Troponin I 1.23 H* 0.90 H* Urine Color Yellow Urine Appearance Clear Urine pH 5.0 Ur Specific Nice 1.013 Urine Protein Negative Urine Ketones Trace A Urine Blood Negative Urine Nitrate Negative Urine Bilirubin Negative Urine Urobilinogen Negative Ur Leukocyte Esterase Negative Urine Glucose Negative 03/24/19 03/24/19 03/24/19 19:51 20:16 20:16 WBC RBC Hgb Hct MCV MCH MCHC RDW Plt Count MPV Neut % (Auto) Lymph % (Auto) [place] % (Auto) Eos % (Auto) Baso % (Auto) Absolute Neuts (auto) Absolute Lymphs (auto) Absolute Monos (auto) Absolute Eos (auto) Absolute Basos (auto) Absolute Nucleated RBC Nucleated RBC % Hem Pathologist Commnt Patient Temperature Not Reportable ABG pH 7.41 ABG pH (Temp Correct) Not Reportable ABG pCO2 40 ABG pCO2 (Temp Corrct Not Reportable ABG pO2 87 ABG pO2 (Temp Correct Not Reportable ABG HCO3 25.4 ABG O2 Saturation 98.7 H ABG Base Excess 0.7 Respiration Rate Not Reportable O2 Delivery Device high flow Ventilator Type Not Reportable Vent Mode Not Reportable FiO2 100 Inspiratory Time Not Reportable PEEP Not Reportable Pressure Support Not Reportable Pressure Control Not Reportable EPAP Not Reportable IPAP Not Reportable BiPAP Not Reportable Sodium 142 Potassium 3.9 Chloride 106 Carbon Dioxide 24 Anion Gap 12 H BUN 25 H Creatinine 0.63 Est GFR ( Amer) 113.4 Est GFR (Non-Af Amer) 93.7 BUN/Creatinine Ratio 39.7 H Glucose 104 H Lactic Acid 1.3 Calcium 9.3 Magnesium Troponin I 0.84 H* Urine Color Urine Appearance Urine pH Ur Specific Nice Urine Protein Urine Ketones Urine Blood Urine Nitrate Urine Bilirubin Urine Urobilinogen Ur Leukocyte Esterase Urine Glucose 03/24/19 03/25/19 03/25/19 20:16 04:33 04:33 WBC 14.9 H 16.9 H RBC 2.40 L 2.44 L Hgb 9.2 L 9.4 L Hct 28 L 28 L MCV 115 H 114 H MCH 38 H 38 H MCHC 33 34 RDW 14 14 Plt Count 412 429 MPV 8.2 8.4 Neut % (Auto) 89.2 87.1 Lymph % (Auto) 4.2 5.8 [place] % (Auto) 6.3 6.7 Eos % (Auto) 0.1 0.1 Baso % (Auto) 0.2 0.3 Absolute Neuts (auto) 13.3 H 14.7 H Absolute Lymphs (auto) 0.6 L 1.0 Absolute Monos (auto) 0.9 H 1.1 H Absolute Eos (auto) 0.0 0.0 Absolute Basos (auto) 0.0 0.0 Absolute Nucleated RBC 0.0 0.0 Nucleated RBC % 0.1 0.1 Hem Pathologist Commnt Patient Temperature ABG pH ABG pH (Temp Correct) ABG pCO2 ABG pCO2 (Temp Corrct ABG pO2 ABG pO2 (Temp Correct ABG HCO3 ABG O2 Saturation ABG Base Excess Respiration Rate O2 Delivery Device Ventilator Type Vent Mode FiO2 Inspiratory Time PEEP Pressure Support Pressure Control EPAP IPAP BiPAP Sodium 144 Potassium 3.6 Chloride 104 Carbon Dioxide 26 Anion Gap 14 H BUN 23 Creatinine 0.69 Est GFR ( Amer) 102.1 Est GFR (Non-Af Amer) 84.4 BUN/Creatinine Ratio 33.3 H Glucose 126 H Lactic Acid Calcium 9.2 Magnesium 1.8 L Troponin I Urine Color Urine Appearance Urine pH Ur Specific Nice Urine Protein Urine Ketones Urine Blood Urine Nitrate Urine Bilirubin Urine Urobilinogen Ur Leukocyte Esterase Urine Glucose Studies: CXR with profound bilateral airspace disease consistent with ARDS over bibasilar pneumonia. Nutrition: NPO for mental status Impression: Acute hypoxic respiratory failure secondary to acute on chronic aspiration pneumonitis/pneumonia with likely superimposed fungal pneumonia due to the chronic nature of her disease. Plan: Acute hypoxic respiratory failure secondary to aspiration pneumonitis and likely fungal pneumonia - I had started echinocandin therapy with this working diagnosis after discussion with this AM. he was focused on the potential for comfort care at that time and I offered that a trial of antifungal for 48hrs to see where she took us might be a reasonable way to sort through the current scenario without being pressed to choose one path or another today. He agreed and asked that I speak with he and his daughter upon her arrival later in the after noon. Antifungal was ordered and fentanyl PRN added to her care at his request to make sure she remained comfortable. Long discussion with and daughter ultimately followed. Both of one voice that patient was in functional decline prior to admission and that she would not want this level of support to continue especially given that she had been refusing to eat for weeks and they had no reasonable expectation that this would change even if she survived her ICU course. They asked that all non- comfort directed medications be discontinued but that HFNC remain in place for now. She is not to receive positive pressure ventilation of any kind and remains DNR/DNI with the expectation of moving to morphine drip and de- escalation of oxygen therapy in the coming 24-48hrs.
[2019-03-25] MEDS: Morphine INJ* 2 MG/ML 1 ML SYRINGE (TWO MG - NEW SYRINGE VERSION) IV PRN ×2 (15:32→19:32)
[2019-03-25] MEDS ORDERED: Cefepime 1 GM in Dextrose(*) 1 GM/50 ML BAG IV SCH (17:30)
[2019-03-25] MEDS ORDERED: fentaNYL Patch Check Q Shift 1 NOTE SCH (19:00)
[2019-03-26] MEDS: Morphine INJ* 2 MG/ML 1 ML SYRINGE (TWO MG - NEW SYRINGE VERSION) IV PRN ×2 (03:41→09:10)
[2019-03-26] MEDS ORDERED: Vancomycin Trough Check NOTE FOLLOW UP ONE (05:30)
[2019-03-26] MEDS ORDERED: Lorazepam PYXIS KEY PRN (09:42)
[2019-03-26] MEDS ORDERED: Morphine 10 MG/ML VIAL (1 ml) IV ONE (09:44)
[2019-03-26] MEDS ORDERED: Morphine PCA LOW DOSE* 1 MG/ML 30 ML SYRINGE PCA SCH (10:00)
[2019-03-26] MEDS ORDERED: Caspofungin(NF) 50 MG in NS 0.9% 250 ML* 250 ML IV SCH (10:00)
[2019-03-26] MEDS ORDERED: Morphine PCA* 150 MG in PREMIX PCA SCH (10:00)
[2019-03-26] MEDS ORDERED: Morphine PCA ADULT* 5 MG/ML 30 ML PCA SCH (10:00)
[2019-03-26] MEDS: Valproic Acid IV(*) 500 MG in NS 0.9% 100 ML* 100 ML IVPB SCH (10:03)
[2019-03-26] MEDS: LORazepam INJ* 2 MG/ML 1 ML VIAL IV PUSH PRN ×3 (10:06→12:42)
--- NOTE | 2019-03-26 10:32 | PN ---
Date of Service: 03/26/19 Critical Care Services: Appears mildly uncomfortable. Vital Signs: Temp Pulse Resp BP SpO2 FiO2 36.8 C 55 16 108/65 96 100 03/26/19 09:00 03/26/19 09:00 03/26/19 10:06 03/26/19 09:00 03/26/19 09:00 03/26 08:00 Physical Exam: Gen:Rouses to stimulation. HEENT: Lungs: rhonchi Cardiac: Abdomen: soft Extremities: Neuro: moves spont, rouses to voice vaguely Fluid Balance (Past 24 Hours): I= O= Net Intake & Output 03/24/19 03/25/19 03/26/19 03/27/19 06:59 06:59 06:59 06:59 Intake Total 330 491.7 781 Output Total 0 2110 1240 7 Balance 330 -1618.3 -459 -7 Weight 62.278 kg 60.6 kg 59.6 kg Intake: IV Fluids 215 704 Ferric Gluconate 110 NS (0.9%) 2 594 Valproic Acid 110 magnesium 103 IVPB 210 93 Ferric Gluconate 110 NS (0.9%) 50 magnesium 100 43 Medicated IV 83.7 77 GEN - Furosemide/Lasix 83.7 77 Oral 120 100 0 Output: Urine 0 Queen 2110 1240 7 Other: Estimated Void Large # Bowel Movements 1 0 # Voids 2 Labs: Laboratory Results - last 24 hr 03/25/19 04:33 Hem Pathologist Commnt Impression: Acute Hypoxic Respiratory Failure secondary to aspiration pneumonitis/ pneumonia. Family opting for comfort care consistent with patient's known wishes in the setting of progressive debility and decrement in outpt functional status. Plan: Family requesting full comfort care with removal of oxygen. Morphine gtt written and will de-escalate the oxygen as patient comfort allows as D/W family in detail at bedside.
[2019-03-26 10:35] VITALS: BP 98/50
[2019-03-26] MEDS ORDERED: Anidulafungin* 100 MG in NS 0.9% 100 ML* 100 ML IVPB SCH (12:00)
--- NOTE | 2019-03-26 14:32 | DS ---
Worsening acute hypoxic respiratory failure and family opted for comfort care consistent with patient's known wishes. 03/26/2019 at 1310 hrs peacefully with family at the bedside. Cause of : Respiratory Failure Aspiration Pneumonia Encephalopathy Please see H&P for further details.
== END 2019-03-26 13:10 | disposition expired ==
LOC: ED 15:20 → MEDTELE 17:58 → OBSVTOIN 18:05 → ICU 03-24 17:03
PROVIDERS: ADMIT Internal Medicine; ATTEND Internal Medicine Critical Care Medicine
PROC: 4A023N7 Measurement of Cardiac Sampling and Pressure, Left Heart, Percutaneous Approach (ICD-10-PCS; principal; 2019-03-24)
DX: I21.4 Non-ST elevation (NSTEMI) myocardial infarction (principal); J96.01 Acute respiratory failure with hypoxia; I50.23 Acute on chronic systolic (congestive) heart failure; J69.0 Pneumonitis due to inhalation of food and vomit; G93.40 Encephalopathy, unspecified; I48.11 Longstanding persistent atrial fibrillation; I42.9 Cardiomyopathy, unspecified; I48.0 Paroxysmal atrial fibrillation; I11.0 Hypertensive heart disease with heart failure; G47.30 Sleep apnea, unspecified; K21.9 Gastro-esophageal reflux disease without esophagitis; M19.90 Unspecified osteoarthritis, unspecified site; Z96.643 Presence of artificial hip joint, bilateral; F41.0 Panic disorder [episodic paroxysmal anxiety]; F17.210 Nicotine dependence, cigarettes, uncomplicated; E83.42 Hypomagnesemia; K58.0 Irritable bowel syndrome with diarrhea; D64.9 Anemia, unspecified; E78.5 Hyperlipidemia, unspecified; I73.9 Peripheral vascular disease, unspecified; F10.10 Alcohol abuse, uncomplicated; Y90.9 Presence of alcohol in blood, level not specified; G40.909 Epilepsy, unspecified, not intractable, without status epilepticus; D69.6 Thrombocytopenia, unspecified; I34.0 Nonrheumatic mitral (valve) insufficiency; I95.9 Hypotension, unspecified; F32.9 Major depressive disorder, single episode, unspecified; Z88.1 Allergy status to other antibiotic agents; Z88.6 Allergy status to analgesic agent; Z95.5 Presence of coronary angioplasty implant and graft; Z85.841 Personal history of malignant neoplasm of brain; Z92.3 Personal history of irradiation; Z79.82 Long term (current) use of aspirin; Z79.01 Long term (current) use of anticoagulants
CPT/HCPCS: 36415; 36600; 70450; 71045; 71250; 72192; 80048; 80053; 80061; 80162; 80164; 80320; 81003; 81015; 82140; 82272; 82550; 82553; 82607; 82668; 82728; 82803; 83540; 83550; 83605; 83735; 83880; 84134; 84443; 84484; 85025; 85027; 85060; 85610; 85730; 86140; 86850; 86900; 86901; 87086; 87641; 93005; 93306; 96361; 96365; 96366; 96375; 99283; A9270-GY; C8929; G0480; J0348; J0692; J1160; J1630; J1650; J1940; J2060; J2270; J2916; J3010; J3370; J3411; J3475; J3490